=== PATIENT | female | born 1945 | race Caucasian/White ===

== ENCOUNTER → 2017-09-13 13:49 | Outpatient (CLI) | payer OTHER, SELFPAY ==
--- NOTE | 2017-09-13 | DI.MG.S_ITS ---
BILATERAL DIGITAL SCREENING MAMMOGRAM 3D/2D WITH CAD: 09/13/2017 CLINICAL: Routine screening. Comparison is made to exams dated: 09/10/2016 mammogram, 08/31/2016 mammogram, and 08/22/2015 mammogram - [facility]. There are scattered fibroglandular elements in both breasts. Current study was also evaluated with a Computer Aided Detection (CAD) system. No significant masses, calcifications, or other findings are seen in either breast. There has been no significant interval change. IMPRESSION: NEGATIVE There is no mammographic evidence of malignancy. A 1 year screening mammogram is recommended. This exam was interpreted at Station ID: [id number]. NOTE: For mammograms, a report in lay terms will be sent to the patient. Approximately 15% of breast malignancies will not be visualized mammographically. In the management of a palpable breast mass, a negative mammogram must not discourage biopsy of a clinically suspicious lesion. Electronically Signed By: Anatoliy martines/mallorie:09/13/2017 17:14:31 letter sent: Normal Exam ACR BI-RADS Category 1: Negative [id number]
== END ==
PROVIDERS: PCP Family Medicine; Visit Provider Family Medicine
DX: Z12.31 Encounter for screening mammogram for malignant neoplasm of breast (principal)
CPT/HCPCS: 77063; 77067

== ENCOUNTER → 2017-11-22 07:54 | Outpatient (CLI) | payer OTHER, SELFPAY ==
--- NOTE | 2017-11-22 07:58 | DI.US.S_ITS ---
PROCEDURE: US ABDOMEN LIMITED INDICATIONS: LEFT GROIN LYMPHEDEMA TECHNIQUE: Real-time focused scanning was performed of the abdomen, with image documentation. COMPARISON: None. FINDINGS: No left groin lymph node, mass or other abnormality seen. IMPRESSION: No left groin abnormality. Dictated by: Franky FLETCHER Interpreted: Tiago Chavarria MD on 11/22/2017 at 9:22 Approved by: Tiago Chavarria M.D. on 11/22/2017 at 21:46
== END ==
PROVIDERS: Visit Provider Nurse Practitioner Family
DX: I89.0 Lymphedema, not elsewhere classified (principal); I10 Essential (primary) hypertension
CPT/HCPCS: 76705

== ENCOUNTER 2018-03-21 21:42 | Emergency (ER) | payer OTHER, SELFPAY ==
[2018-03-21 22:01] VITALS: BP 142/82; PULSE 77; RESP 16; TEMP 36.2; O2SAT 94; BMI 34.3
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
[2018-03-21 23:00] VITALS: BP 136/74; PULSE 77; RESP 16; O2SAT 97
[2018-03-21 23:44] VITALS: BP 144/72; PULSE 82; RESP 18; TEMP 36.6; O2SAT 97
== END 2018-03-21 23:44 | disposition home or self-care (01) ==
PROVIDERS: Emergency Provider Emergency Medicine; PCP Family Medicine
DX: R07.89 Other chest pain (principal); V49.9XXA Car occupant (driver) (passenger) injured in unspecified traffic accident, initial encounter
CPT/HCPCS: 71046; 93005; 93041; 99283; 99284

== ENCOUNTER → 2018-05-06 11:35 | Outpatient (CLI) | payer OTHER, SELFPAY ==
[2018-05-06 12:47] LABS: BUN Creatinine Ratio 17.5 (6-22); Blood Urea Nitrogen 14 mg/dL (7-17); Calcium 10.2 mg/dL (8.4-10.2); Carbon Dioxide 32 mmol/L (22-32); Chloride 95 mmol/L (98-107); Estimated Glomerular Filt Rate > 60.0 mL/min (>60); Glucose 107 mg/dL (80-110); HEMOLYSIS < 15 (0-50); Potassium 4.4 mmol/L (3.4-5.1); Sodium 138 mmol/L (137-145)
[2018-05-06 14:56] LABS: Creatinine Urine Random 87.8 mg/dL
[2018-05-06 15:00] LABS: Microalbumi Creatinin Ratio Ur 19.3 ug/mg CR (<30); Microalbumin Urine Random 1.7 mg/dL (0-1.6)
== END ==
PROVIDERS: PCP Family Medicine; Visit Provider Family Medicine
DX: I10 Essential (primary) hypertension (principal)
CPT/HCPCS: 36415; 80048; 82043; 82570

== ENCOUNTER 2018-08-04 06:30 | Day surgery (SDC) | payer OTHER, SELFPAY ==
[2018-08-04 07:10] VITALS: BP 156/82; PULSE 74; RESP 20; TEMP 36.4; O2SAT 98
[2018-08-04] MEDS: PROPARACAINE 0.5% OPHTH SOL 2 DROPS EYE-OP (07:15)
[2018-08-04] MEDS: CATARACT EYE COMPOUND (10 DROPS/SYRINGE) 3 DROPS EYE-OP (07:20)
--- NOTE | 2018-08-04 07:27 | PM.PREOP ---
Pre-operative Note Interval Note History & Physical reviewed/Exam performed by Physician: Yes Changes to H&P: No
[2018-08-04] MEDS: TETRACAINE 0.5% OPHTH DROPS 4 ML 2 DROPS EYE-LEFT (07:43)
[2018-08-04] MEDS: CHONDROIDTIN/SOD HYALURONATE 1.05 ML SYRINGE INTRAOCULA (08:12)
[2018-08-04] MEDS: PHENYLEPHRINE/LIDOCAINE VIAL (OR) 0.2 ML EYE-OP (08:13)
[2018-08-04] MEDS: MOXIFLOXACIN OPHTH DROPS 3 ML BOTTLE 2 DROPS INJ (08:13)
[2018-08-04] MEDS: BALANCED SALT IRRIG SOLN NO.2 500 ML, EPINEPHrine 1 MG IRR (08:14)
[2018-08-04] MEDS: BALANCED SALT IRRIG SOLN NO.2 15 ML IRR (08:16)
[2018-08-04] MEDS: LIDOCAINE 2% INJ SDV 0.5 ML TOP (08:17)
--- NOTE | 2018-08-04 08:35 | PM.OP.1 ---
Procedure & Clinicians Procedure: Cataract extraction with intraocular lens implant, left Same procedure as scheduled: Yes Indications: Age related nuclear sclerosis , left Click Yes if Unassisted: Yes Anesthesia Type: MAC +/- Operative Notes Procedure in detail: The patient was brought to the operating suite. The correct patient, surgical site and lens were confirmed. 0.5 % tetracaine drops were placed in the left eye. The cornea was marked with a corneal reference marker. The patient was prepped and draped in the typical sterile manner. A lid speculum was placed in the eye. 2% lidocaine was placed on the eye. A paracentesis port was created with a side-port blade. 0.1 mL of 1% preservative free lidocaine with phenylephrine was injected into the anterior chamber. Viscoelastic was injected into the anterior chamber. A 2.6mm keratome was used to create a clear corneal temporal incision. Cystotome and Utrata forceps were used to create a continuous curvilinear capsulorrhexis. Balanced salt solution was used to hydrodissect the nucleus. Phacoemulsification was used to remove the lens. The capsular bag was inflated with viscoelastic. The cornea was marked at 162 degrees. A Bar ZCT 225 +23.5D lens was inserted into the capsule. Viscoelastic was removed. The lens was rotated to 162 degrees and the wound hydrated. The wound was found to be leak free and the eye was assessed to be at normal physiologic pressure. 0.1mL Vigamox was injected into the anterior chamber. The lid speculum was removed and the patient left the operating room in excellent condition. Complications: none Condition: stable Disposition: same day surgery
[2018-08-04 08:36] VITALS: BP 150/75; PULSE 71; RESP 18; TEMP 36.3; O2SAT 100
== END 2018-08-04 09:04 ==
LOC: OR 06:33
PROVIDERS: PCP Family Medicine; Visit Provider Ophthalmology
PROC: (CPT 66984; principal; 2018-08-04 07:45)
DX: H25.12 Age-related nuclear cataract, left eye (principal); I10 Essential (primary) hypertension
CPT/HCPCS: 66984; J0171; J2250; J3010; V2787

== ENCOUNTER 2018-08-10 15:40 | Emergency (ER) | payer OTHER, SELFPAY ==
[2018-08-10 15:45] VITALS: BP 150/84; PULSE 85; RESP 20; TEMP 36.1; O2SAT 96
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
[2018-08-10 17:00] VITALS: BP 136/72; PULSE 67; RESP 18; O2SAT 98
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
--- NOTE | 2018-08-10 17:59 | ED.FALL ---
HPI - Fall General Chief Complaint: Fall Stated Complaint: SYNCOPAL EPISODE, MEMORY CHANGES Time Seen by Provider: 08/10/18 17:58 Source: patient Mode of arrival: ambulatory Limitations: no limitations History of Present Illness HPI Narrative: Patient is a 73-year-old female here for evaluation of an episode where she got out of her call our earlier this evening. She was with her that time. Her thinks that she took a step and tripped over a piece of cement that was in the parking lot. There was no loss of consciousness. She is not on anticoagulation. She does report that she has some problems memory prior to the event. She did not have any prodromal symptoms to include headache or palpitations or lightheadedness or dizziness. Patient was able to ambulate afterwards. Is complaining of right arm pain and abrasions to the tops of her feet and a cut above her right eye. Related Data Home Medications Medication Instructions Recorded Confirmed ketorolac 1 drp EYE-RIGHT QID 08/10/18 08/10/18 moxifloxacin 1 drp EYE-RIGHT QID 08/10/18 08/10/18 prednisolone acetate 1 drp EYE-RIGHT QID 08/10/18 08/10/18 Previous Rx's Medication Instructions Recorded atorvastatin 20 mg tablet 20 mg PO 2 X/WEEK #40 tab 07/22/18 hydrochlorothiazide 25 mg tablet 25 mg PO DAILY #30 tab 07/22/18 Allergies Allergy/AdvReac Type Severity Reaction Status Date / Time No Known Drug Allergies Allergy Verified 08/04/18 07:11 Review of Systems Constitutional Denies fatigue, Denies frequent falls, Denies headache(s) and Denies weakness Eyes Denies change in vision ENT Ears, Nose, Mouth, and Throat: Denies vertigo, Denies dizziness, Denies headache(s), Denies epistaxis, Denies mouth pain, Denies nasal discharge, Denies disequilibrium, Denies tinnitus and Denies sinus pressure Cardiovascular Denies chest pain, Denies palpitations and Denies dyspnea Respiratory Denies cough and Denies dyspnea Gastrointestinal Gastrointestinal: Denies abdominal pain, Denies nausea and Denies vomiting Musculoskeletal Comments: Right arm pain Integumentary/Breasts Comments: Cut above the right eye abrasions that up the feet Neurologic Denies abnormal movements, Denies abnormal speech, Denies behavioral changes, Reports confusion, Denies vertigo, Denies dizziness, Denies frequent falls, Denies headache(s), Denies focal weakness, Reports memory loss, Denies restless legs, Denies paresthesias, Denies disequilibrium and Denies weakness Psychiatric Denies behavioral changes, Reports confusion and Reports memory loss Endocrine Denies fatigue and Denies palpitations Hematologic/Lymphatic Denies easy bleeding and Denies easy bruising Allergic/Immunologic Denies urticaria Exam Initial Vital Signs Initial Vital Signs: Vital Signs Temperature 97.0 F L 08/10/18 15:45 Pulse Rate 85 08/10/18 15:45 Respiratory Rate 20 08/10/18 15:45 Blood Pressure 150/84 H 08/10/18 15:45 Pulse Oximetry 96 08/10/18 15:45 Const General: cooperative, comfortable, well developed, well groomed and No acute distress Orientation: alert, awake and oriented x3 HENMT Head: other (Small cut above the right eye) Ears: hearing grossly normal bilaterally Nose: external nose normal Face and sinus: normal facial exam Mouth: oral mucosae normal Eyes EOM: EOM intact bilaterally Resp Effort & Inspection: normal respiratory effort Auscultation: clear to auscultation bilaterally Cardio Rate: regular rate Rhythm: regular rhythm Pulses: radial pulses present GI Inspection: non-distended Palpation: soft Back/Spine/Pelvis Cervical Spine: No collar present, No cervical spasm and No cervical spinal tenderness Thoracic/Lumbar Spine: No thoracic spinal tenderness and No lumbar spinal tenderness Skin Other: Patient with a superficial 2 cm cut to the lateral aspect above the right eye. Patient was superficial abrasions to the top bilateral feet Neuro General: alert, awake and oriented x3 Cranial Nerves: CN's II-XI intact bilaterally Cognition: normal cognition Speech: speech normal Motor: muscle tone normal throughout Sensory Exam: no sensory deficits noted Extrem General: normal to inspection and capillary refill normal Other: Patient with tenderness to palpation around the right elbow. Right shoulder right wrist right hand unremarkable. The rest of her musculoskeletal exam is unremarkable Psych Appearance: grossly normal and well ket [facility] Medical History Cataract (Chronic ~2011) Dextroscoliosis (Chronic) Diverticulosis (Chronic 07/12/14) Fibrocystic breast disease (Chronic 1992) Hemorrhoids (Chronic) Hyperlipidemia (Chronic) Peptic ulcer disease (Chronic 2004) Scoliosis (Chronic ~1956) Abnormal Pap smear of cervix (Resolved) Chicken pox (Resolved) 4 para 4 (Resolved) Measles (Resolved) Mumps (Resolved) Social History household members: spouse Smoking Status: Never smoker alcohol intake: current (Once in a great while ) substance use type: does not use Procedures Orthopedic Splinting/Casting Injury #1: Side: right Upper Extremity Injury Location: elbow Upper Extremity Immobilizer: sugar tong splint Post splinting neuro exam: intact and no change Post splinting vascular exam: no change Placed by: Provider Scores GCS Gautier coma scale eye opening: Spontaneous Sri coma scale verbal response: Orientated Gautier coma scale motor response: Obey commands Gautier coma scale total score: 15 Nexus Score for C-Spine Focal Neurologic deficit present: No Midline spinal tenderness present: No Altered level of conciousness present: No Intoxication present: No Distracting Injury Present: No Nexus Criteria for C-spine: 0 Course Orders Ordered: ED Orders 08/10/18 15:56 CT cervical spine wo con Stat CT head/brain wo con Stat 08/10/18 17:28 XR forearm RT 2V Stat XR wrist RT min 3V Stat 08/10/18 17:29 EKG-12 Lead Stat 08/10/18 18:19 XR elbow RT min 3V Stat Vital Signs - 8 hr 08/10/18 17:00 08/10/18 20:51 Pulse Rate 67 73 Respiratory Rate 18 16 Blood Pressure 140/69 Blood Pressure [Left Arm] 136/72 Pulse Oximetry 98 97 MDM - Fall Imaging Data CT scan - head: Radiologist's impression: [address] [address] [address] Scan Report Signed Patient: Analilia Malone JMR#: [id number] : 6Acct:[id number] Age/Sex: 72 / FDate of Service: 08/10/18 Loc: ED Accession Number: [id number] Procedure: CT head/brain wo con Ordering Provider: Lucie Barnes-BC PROCEDURE: CT HEAD/BRAIN WO CON INDICATIONS: fall, struck head, +loc, vomiting TECHNIQUE: Noncontrast 4.5 mm thick angled axial sections acquired from the foramen magnum to the vertex, with coronal and sagittal reformats. For radiation dose reduction, the following was used: automated exposure control, adjustment of mA and/or kV according to patient size. COMPARISON: [facility], MR, C-SPINE WITHOUT CONTRAST, 02/25/2010, 17:06. [facility], CT, CT CERVICAL SPINE WO CON, 08/10/2018, 16:03. FINDINGS: Image quality: Excellent. CSF spaces: Basal cisterns are patent. No extra-axial fluid collections. The ventricles are symmetric in size and shape. Brain: No intracranial bleeds or masses. There is cerebral volume loss for age, with resultant ventricular and sulcal prominence. There are periventricular and deep white matter chronic small vessel ischemic changes. There is intracranial internal carotid artery atherosclerosis. Skull and face: Calvarium and visualized facial bones appear intact, without suspicious lesions. Note is made of absence of the C1 ring from the posterior midline leftward and anteriorly towards the 2:00 position on the left. Sinuses: Visualized sinuses and mastoids are clear. IMPRESSION: No brain parenchymal trauma found, no intracranial hemorrhage seen. Absent left sided C1 ring from approximately 2:00 to 6:00 without visualized mass lesion in that area. Please correlate for whether this could represent a congenital variant or sequela of prior operative intervention. Dictated by: Ziggy Rico M.D. on 08/10/2018 at 16:18 Approved by: Ziggy Rico M.D. on 08/10/2018 at 16:22 CT cervical spine: Radiologist's impression: [place] [address] CT Scan Report Signed Patient: Analilia Malone R#: [id number] : 6Acct:[id number] Age/Sex: 72 / FDate of Service: 08/10/18 Loc: ED Accession Number: [id number] Procedure: CT cervical spine wo con Ordering Provider: Lucie Barnes PROCEDURE: CT CERVICAL SPINE WO CON INDICATIONS: fall, struck head, +loc, vomiting TECHNIQUE: Noncontrast 3 mm thick sections acquired from the skull base to the T4 level. Sagittal and coronal reformats were then constructed. For radiation dose reduction, the following was used: automated exposure control, adjustment of mA and/or kV according to patient size. COMPARISON: None. FINDINGS: Image quality: Excellent. Bones: No cervical fractures or dislocations. Visualized superior ribs are intact. Severe thoracolumbar S-shaped scoliotic curvature. Thoracic spine also imaged with no thoracic vertebral fractures noted. Relatively minor cervical spondylitic. Bilateral bony foraminal narrowing at C3-C4 and C4-C5. Soft tissues: Prevertebral soft tissues are normal in thickness. No paravertebral hematomas. No apical pneumothoraces. IMPRESSION: No evidence of acute cervical fracture or dislocation. Dictated by: Fredo Guerrero M.D. on 08/10/2018 at 16:19 Approved by: Fredo Guerrero M.D. on 08/10/2018 at 16:23 X-ray forearm: Radiologist's impression: [address] [address] XRay Report Signed Patient: FaisalAnalilia BERMEO#: [id number] : 1945cct:[id number] Age/Sex: 72 / FDate of Service: 08/10/18 Loc: ED Accession Number: [id number] Procedure: XR forearm RT 2V Ordering Provider: Lucie Nowak D.O. PROCEDURE: XR FOREARM RT 2V INDICATIONS: fall and painful TECHNIQUE: 2 views of the forearm were acquired. COMPARISON: None. FINDINGS: Bones: There is subtle contour irregularity involving the radial neck region, suboptimally evaluated on this forearm study. No other fracture or dislocation is seen. No suspicious bony lesions. Soft tissues: No suspicious soft tissue calcifications or masses. There is displacement of anterior fat pad consistent with elbow joint effusion and is suspicious for occult fracture. IMPRESSION: Finding is concerning for subtle radial head/neck fracture. If indicated, dedicated radiographs of elbow joint can be done for further evaluation. Dictated by: Luis Castillo M.D. on 08/10/2018 at 18:04 Approved by: Luis Castillo M.D. on 08/10/2018 at 18:07 X-ray wrist: Radiologist's impression: Analilia Malone J 73 F [address] [address] XRay Report Signed Patient: Analilia Malone#: [id number] : 6Acct:[id number] Age/Sex: 72 / FDate of Service: 08/10/18 Loc: ED Accession Number: [id number] Procedure: XR wrist RT min 3V Ordering Provider: Lucie Nowak D.O. PROCEDURE: XR WRIST RT MIN 3V INDICATIONS: fall and painful TECHNIQUE: 4 views of the wrist were acquired. COMPARISON: [facility], , WRIST MINIMUM 3 VIEWS RIGHT, 10/20/2010, 11:49. FINDINGS: Bones: Moderate osteoarthritic changes along radial aspect of right wrist are seen more prominent at first CMC joint. No fractures or dislocations. No suspicious bony lesions. Scaphoid view: Scaphoid is grossly intact. Soft tissues: No suspicious soft tissue calcifications. IMPRESSION: No gross acute right wrist fracture or dislocation. 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 Dictated by: Luis Castillo M.D. on 08/10/2018 at 18:07 X-ray elbow: Radiologist's impression: [place] [address] XRay Report Signed Patient: Analilia Malone JMR#: [id number] : 6Acct:[id number] Age/Sex: 72 / FDate of Service: 08/10/18 Loc: ED Accession Number: [id number] Procedure: XR elbow RT min 3V Ordering Provider: Juan Miguel Ferreira D.O. PROCEDURE: XR ELBOW RT MIN 3V INDICATIONS: possible fracture TECHNIQUE: 3 views of the elbow were acquired. COMPARISON: None. FINDINGS: Bones: There is cortical irregularity of the right proximal radial neck and distal humeral metaphysis/supracondylar region. Soft tissues: There is a moderate-sized anterior right elbow joint effusion. IMPRESSION: Moderate-sized anterior right elbow joint effusion with cortical irregularity of the proximal right radial neck and right distal humeral metaphysis, concerning for nondisplaced fractures. Recommend followup radiographs in 7-10 days for further evaluation. Dictated by: Juan Francisco Queen M.D. on 08/10/2018 at 19:14 Approved by: Juan Francisco Queen M.D. on 08/10/2018 at 19:17 ECG Data Attestation: I personally reviewed and interpreted this ECG as follows: Prior ECG tracings: not available for review Interpretation: Sinus rhythm Ventricular rate is 74 Occasional PACs Normal QRS Normal QTC No ST T wave changes MDM Narrative Medical decision making narrative: Patient had the head CT and cervical spine CT right forearm and right wrist x-rays ordered out in triage. Her cervical spine CT showed no acute pathology. At the time of my evaluation patient did not have a cervical collar on. There is no record in the nursing notes that a cervical collar was placed. She had no tenderness to her neck. Full range of motion. After further questioning the patient and her does appear to be a mechanical fall. The superficial laceration above the right eye needs no suturing here in the emergency department. The abrasions on her feet were cleaned. The right elbow x-ray was ordered because of the concern for a radial head fracture on the forearm. This does show the possibility of a radial head fracture and also a distal ulna fracture. She was placed in a sugar-tong splint for mobilization and given the phone number to contact Orthopedics for follow-up. He had GCS of 15. No neurologic deficits the time of my exam. Patient was okay with going home and asking to be discharged home. She was given care instructions with regard to the splint. She was given strict follow-up instructions. She expressed understanding and agreement plan. Discharge Plan Departure Patient Disposition: Home Clinical Impression: Abrasion of skin Fracture of proximal end of radius Qualifiers: Encounter type: initial encounter Fracture type: closed Fracture morphology: unspecified fracture morphology Laterality: right Qualified Code(s): S52.101A - Unspecified fracture of upper end of right radius, initial encounter for closed fracture Fracture of distal end of humerus Qualifiers: Encounter type: initial encounter Fracture type: closed Fracture morphology: unspecified fracture morphology Laterality: right Qualified Code(s): S42.401A - Unspecified fracture of lower end of right humerus, initial encounter for closed fracture Fall Qualifiers: Encounter type: initial encounter Qualified Code(s): W19.XXXA - Unspecified fall, initial encounter Discharge Date/Time: 08/10/18 20:35 Interventions: ED Discharge Assessment Last Done: 08/10/18 20:51 Instructions: DI for Elbow Fracture, How to Prevent Falls, How to Take Care of Your Splint Activity Restrictions/Additional Instructions: You need to keep the splint on and keep it clean and keep it dry. Tomorrow contact your primary provider for a follow-up. Also contact the [facility] group at [phone] for a follow-up. Keep the abrasions clean. Return to the emergency department for any new or worsening symptoms Prescriptions: No Action hydrochlorothiazide 25 mg tablet 25 mg PO DAILY Qty: 30 RF: 2 atorvastatin [Lipitor] 20 mg tablet 20 mg PO 2 X/WEEK Qty: 40 RF: 2 ketorolac 0.5 % drops 1 drp EYE-RIGHT QID RF: 0 prednisolone acetate 1 % drops,suspension 1 drp EYE-RIGHT QID RF: 0 moxifloxacin 0.5 % drops 1 drp EYE-RIGHT QID RF: 0 Referrals: Karolina Montague MD [Primary Care Provider] -
--- NOTE | 2018-08-10 18:19 | DI.RAD.S_ITS ---
PROCEDURE: XR ELBOW RT MIN 3V INDICATIONS: possible fracture TECHNIQUE: 3 views of the elbow were acquired. COMPARISON: None. FINDINGS: Bones: There is cortical irregularity of the right proximal radial neck and distal humeral metaphysis/supracondylar region. Soft tissues: There is a moderate-sized anterior right elbow joint effusion. IMPRESSION: Moderate-sized anterior right elbow joint effusion with cortical irregularity of the proximal right radial neck and right distal humeral metaphysis, concerning for nondisplaced fractures. Recommend followup radiographs in 7-10 days for further evaluation. Dictated by: Juan Francisco Queen M.D. on 08/10/2018 at 19:14 Approved by: Juan Francisco Queen M.D. on 08/10/2018 at 19:17
--- NOTE | 2018-08-10 20:30 | PC.NURSE ---
patient with bilateral dorsal foot abrasions dressed with bacitracin and bandaids. steri strip to right eyebrow per provider. no new orders at this time.
[2018-08-10 20:51] VITALS: BP 140/69; PULSE 73; RESP 16; O2SAT 97
== END 2018-08-10 20:35 | disposition home or self-care (01) ==
PROVIDERS: Emergency Provider Emergency Medicine; Family Provider Family Medicine; PCP Family Medicine
DX: S52.101A Unspecified fracture of upper end of right radius, initial encounter for closed fracture (principal); S42.401A Unspecified fracture of lower end of right humerus, initial encounter for closed fracture; S00.211A Abrasion of right eyelid and periocular area, initial encounter; S90.812A Abrasion, left foot, initial encounter; S90.811A Abrasion, right foot, initial encounter; W19.XXXA Unspecified fall, initial encounter
CPT/HCPCS: 29105; 29240; 70450; 72125; 73080; 73090; 73110; 93005; 99283; 99284

== ENCOUNTER → 2018-08-16 16:18 | Outpatient (CLI) | payer OTHER, SELFPAY ==
--- NOTE | 2018-08-16 16:24 | DI.RAD.S_ITS ---
PROCEDURE: XR FOOT RT MIN 3V INDICATIONS: right foot pain after fall TECHNIQUE: 3 views of the foot were acquired. COMPARISON: [facility], , FOOT 3V LEFT, 01/04/2008, 9:14. FINDINGS: Bones: There is a comminuted and displaced fracture of the mid and distal aspect of both the fourth and fifth metatarsal bones. No articular extension. Soft tissues: No tibiotalar joint effusion. Achilles tendon appears normal. IMPRESSION: Comminuted and displaced fourth ventricle metatarsal fractures. Dictated by: Sindy Voss M.D. on 08/16/2018 at 17:25 Approved by: Sindy Voss M.D. on 08/16/2018 at 17:26
== END ==
PROVIDERS: Family Provider Family Medicine; PCP Family Medicine; Visit Provider Family Medicine
DX: M79.671 Pain in right foot (principal); S92.341A Displaced fracture of fourth metatarsal bone, right foot, initial encounter for closed fracture; S92.351A Displaced fracture of fifth metatarsal bone, right foot, initial encounter for closed fracture; W19.XXXA Unspecified fall, initial encounter
CPT/HCPCS: 73630

== ENCOUNTER 2018-09-01 13:24 | Day surgery (SDC) | payer OTHER, SELFPAY ==
[2018-09-01 06:00] VITALS: BP 167/76; PULSE 74; RESP 16; TEMP 36.3; O2SAT 99
[2018-09-01 14:24] VITALS: BP 167/76; PULSE 74; RESP 16; TEMP 36.3; O2SAT 99; BMI 18.7
[2018-09-01] MEDS: CATARACT EYE COMPOUND (10 DROPS/SYRINGE) 3 DROPS EYE-OP (14:36)
[2018-09-01] MEDS: PROPARACAINE 0.5% OPHTH SOL 2 DROPS EYE-OP (14:36)
--- NOTE | 2018-09-01 15:49 | PM.PREOP ---
Pre-operative Note Interval Note History & Physical reviewed/Exam performed by Physician: Yes Changes to H&P: No
[2018-09-01] MEDS: TETRACAINE 0.5% OPHTH DROPS 4 ML 2 DROPS EYE-OP ×2 (16:00→16:15)
[2018-09-01] MEDS: BALANCED SALT IRRIG SOLN NO.2 15 ML IRR (16:19)
[2018-09-01] MEDS: CHONDROIDTIN/SOD HYALURONATE 1.05 ML SYRINGE INTRAOCULA (16:20)
[2018-09-01] MEDS: MOXIFLOXACIN OPHTH DROPS 3 ML BOTTLE 2 DROPS INJ (16:20)
[2018-09-01] MEDS: PHENYLEPHRINE/LIDOCAINE VIAL (OR) 0.2 ML EYE-OP (16:23)
[2018-09-01] MEDS: BALANCED SALT IRRIG SOLN NO.2 500 ML, EPINEPHrine 1 MG IRR (16:27)
[2018-09-01] MEDS: LIDOCAINE 2% INJ SDV 0.5 ML TOP (16:29)
--- NOTE | 2018-09-01 16:56 | PM.OP.1 ---
Procedure & Clinicians Procedure: Cataract extraction with intraocular lens implant, right Same procedure as scheduled: Yes Indications: Visually significant age related nuclear cataract, right Surgeon: Eliud Mukherjee Click Yes if Unassisted: Yes Anesthesia Type: MAC +/- Operative Notes Procedure in detail: The patient was brought to the operating suite. The correct patient, surgical site and lens were confirmed. 0.5 % tetracaine drops were placed in the right eye and the eye was marked with a corneal marker. The patient was prepped and draped in the typical sterile manner. A lid speculum was placed in the eye. 2% lidocaine was placed on the eye. A paracentesis port was created with a side-port blade. 0.1 mL of 1% preservative free lidocaine with phenylephrine was injected into the anterior chamber. Viscoelastic was injected into the anterior chamber. A 2.6mm keratome was used to create a clear corneal temporal incision. Cystotome and Utrata forceps were used to create a continuous curvilinear capsulorrhexis. Balanced salt solution was used to hydrodissect the nucleus. Phacoemulsification was used to remove the lens. The capsular bag was inflated with viscoelastic. A Bar [id number] +23.50 D lens was inserted into the capsule. Viscoelastic was removed and the wound hydrated. The wound was found to be leak free and the eye was assessed to be at normal physiologic pressure. 0.1mL Vigamox was injected into the anterior chamber. The lid speculum was removed and the patient left the operating room in excellent condition. Complications: none Condition: stable Disposition: same day surgery
--- NOTE | 2018-09-01 17:01 | P.OP_ITS ---
Procedure & Clinicians Procedure: Cataract extraction with intraocular lens implant, right Same procedure as scheduled: Yes Indications: Visually significant age related nuclear cataract, right Surgeon: Eliud Mukherjee Click Yes if Unassisted: Yes Anesthesia Type: MAC +/- Operative Notes Procedure in detail: The patient was brought to the operating suite. The correct patient, surgical site and lens were confirmed. 0.5 % tetracaine drops were placed in the right eye and the eye was marked with a corneal marker. The lalitha ent was prepped and draped in the typical sterile manner. A lid speculum was placed in the eye. 2% lidocaine was placed on the eye. A paracentesis port was created with a side-port blade. 0.1 mL of 1% preservative free lidocaine with phenylephrine was injected into the anterior chamber. Viscoelastic was injected into the anterior chamber. A 2.6mm keratome was used to create a clear corneal temporal incision. Cystotome and Utrata forceps were used to create a continuous curvilinear capsulorrhexis. Balanced salt solution was used to hydrodissect the nucleus. Phacoemulsification was used to remove the lens. The capsular bag was inflated with viscoelastic. A Bar [id number] +23.50 D lens was inserted into the capsule. Viscoelastic was removed and the wound hydrated. The wound was found to be leak free and the eye was assessed to be at normal physiologic pressure. 0.1mL Vigamox was injected into the anterior chamber. The lid speculum was removed and the patient left the operating room in excellent condition. Complications: none Condition: stable Disposition: same day surgery
[2018-09-01 17:03] VITALS: BP 167/76; PULSE 74; RESP 16; TEMP 36.3; O2SAT 99
== END 2018-09-01 17:21 ==
LOC: OR 13:26
PROVIDERS: PCP Family Medicine; Visit Provider Ophthalmology
PROC: (CPT 66984; principal; 2018-09-01 15:30)
DX: H25.11 Age-related nuclear cataract, right eye (principal); I10 Essential (primary) hypertension
CPT/HCPCS: 66984; J0171; J2250; J3010; V2787

== ENCOUNTER → 2018-11-01 09:27 | Outpatient (CLI) | payer OTHER, SELFPAY ==
--- NOTE | 2018-11-01 | DI.MG.S_ITS ---
BILATERAL DIGITAL SCREENING MAMMOGRAM 3D/2D WITH CAD: 11/01/2018 CLINICAL: Routine screening. Comparison is made to exams dated: 09/13/2017 mammogram, 09/10/2016 mammogram, 08/31/2016 mammogram, and 08/22/2015 mammogram - [facility]. There are scattered fibroglandular elements in both breasts. Current study was also evaluated with a Computer Aided Detection (CAD) system. There are benign calcifications in both breasts. No significant masses, calcifications, or other findings are seen in either breast. There has been no significant interval change. IMPRESSION: There is no mammographic evidence of malignancy. A 1 year screening mammogram is recommended. This exam was interpreted at Station ID: [id number]. NOTE: For mammograms, a report in lay terms will be sent to the patient. Approximately 15% of breast malignancies will not be visualized mammographically. In the management of a palpable breast mass, a negative mammogram must not discourage biopsy of a clinically suspicious lesion. Electronically Signed By: Rodríguez wahl/mallorie:11/01/2018 13:32:42 letter sent: Normal Exam ACR BI-RADS Category 2: Benign Finding(s) 3342F
== END ==
PROVIDERS: PCP Family Medicine; Visit Provider Family Medicine
DX: Z12.31 Encounter for screening mammogram for malignant neoplasm of breast (principal)
CPT/HCPCS: 77063; 77067

== ENCOUNTER → 2019-01-23 13:02 | Outpatient (CLI) | payer OTHER, SELFPAY | PROVIDERS: PCP Family Medicine; Visit Provider Family Medicine | DX: Z78.0 Asymptomatic menopausal state (principal); R29.890 Loss of height; S42.401A Unspecified fracture of lower end of right humerus, initial encounter for closed fracture; S92.901A Unspecified fracture of right foot, initial encounter for closed fracture | CPT/HCPCS: 77080; 77081 ==

== ENCOUNTER → 2019-12-05 16:39 | Outpatient (CLI) | payer OTHER, SELFPAY ==
--- NOTE | 2019-12-05 | DI.MG.S_ITS ---
BILATERAL DIGITAL SCREENING MAMMOGRAM 3D/2D WITH CAD: 12/05/2019 CLINICAL: Routine screening. Comparison is made to exams dated: 11/01/2018 mammogram, 09/13/2017 mammogram, 09/10/2016 mammogram, and 08/31/2016 mammogram - [facility]. There are scattered fibroglandular elements in both breasts. Current study was also evaluated with a Computer Aided Detection (CAD) system. There is a possible new 0.9 cm oval equal density focal asymmetry in the left breast at 12 o'clock middle depth. No other significant masses, calcifications, or other findings are seen in either breast. IMPRESSION: INCOMPLETE: NEEDS ADDITIONAL IMAGING EVALUATION The possible new 0.9 cm oval equal density focal asymmetry in the left breast is indeterminate. Additional views with possible ultrasound are recommended. This exam was interpreted at Station ID: [id number]. NOTE: For mammograms, a report in lay terms will be sent to the patient. Approximately 15% of breast malignancies will not be visualized mammographically. In the management of a palpable breast mass, a negative mammogram must not discourage biopsy of a clinically suspicious lesion. Electronically Signed By: Rodríguez wahl/mallorie:12/06/2019 08:17:54 letter sent: Additional Imaging Needed ACR BI-RADS Category 0: Incomplete [id number]
== END ==
PROVIDERS: PCP Family Medicine; Referring Provider Family Medicine; Visit Provider Family Medicine
DX: Z12.31 Encounter for screening mammogram for malignant neoplasm of breast (principal)
CPT/HCPCS: 77063; 77067

== ENCOUNTER → 2020-01-01 14:00 | Outpatient (CLI) | payer OTHER, SELFPAY ==
--- NOTE | 2020-01-01 14:00 | DI.MG.S_ITS ---
UNILATERAL LEFT DIGITAL DIAGNOSTIC MAMMOGRAM 3D/2D WITH ADDITIONAL VIEWS: 01/01/2020 CLINICAL: Additional evaluation requested from prior study. Comparison is made to exams dated: 12/05/2019 mammogram, 11/01/2018 mammogram, and 09/13/2017 mammogram - [facility]. There are scattered fibroglandular elements in left breast. There is a new 1 cm oval mass with an obscured and circumscribed margin in the left breast at 12 o'clock middle depth. This is seen in additional views. No other significant masses or calcifications are seen in the breast. IMPRESSION: INCOMPLETE: NEEDS ADDITIONAL IMAGING EVALUATION The new 1 cm oval mass in the left breast is indeterminate. An ultrasound is recommended. This exam was interpreted at Station ID: [id number]. NOTE: For mammograms, a report in lay terms will be sent to the patient. Approximately 15% of breast malignancies will not be visualized mammographically. In the management of a palpable breast mass, a negative mammogram must not discourage biopsy of a clinically suspicious lesion. SUMMARY: Targeted ultrasound is recommended for further evaluation and will be scheduled immediately following this exam. Electronically Signed By: John bishop/mallorie:01/01/2020 16:01:35 ACR BI-RADS Category 0: Incomplete [id number]
--- NOTE | 2020-01-01 14:00 | DI.US.S_ITS ---
LIMITED ULTRASOUND OF LEFT BREAST: 01/01/2020 CLINICAL: Patient returns today to evaluate a focal asymmetry in the left breast. Comparison is made to exams dated: 01/01/2020 mammogram, 12/05/2019 mammogram, 11/01/2018 mammogram, and 09/13/2017 mammogram - [facility]. Color flow ultrasound of the left breast 12 o'clock region was performed. Gonzalez scale images of the real-time examination were reviewed. There is a benign 1 cm x 0.7 cm x 0.5 cm oval simple cyst with a smooth internal wall in the left breast at 12 o'clock middle depth 6 cm from the nipple. This oval simple cyst is anechoic with posterior acoustic enhancement. This correlates with mammography findings. IMPRESSION: BENIGN There is no sonographic evidence of malignancy. The 1 cm x 0.7 cm x 0.5 cm oval simple cyst in the left breast is benign. A 1 year screening mammogram is recommended. This exam was interpreted at Station ID: [id number]. Electronically Signed By: John bishop/mallorie:01/01/2020 16:07:24 letter sent: Normal Exam Ultrasound BI-RADS: 2 Benign
== END ==
PROVIDERS: PCP Family Medicine; Referring Provider Family Medicine; Visit Provider Family Medicine
DX: R92.8 Other abnormal and inconclusive findings on diagnostic imaging of breast (principal); N60.02 Solitary cyst of left breast
CPT/HCPCS: 76642; 77065; G0279

== ENCOUNTER 2020-06-18 10:36 | Emergency (ER) | payer OTHER, SELFPAY ==
[2020-06-18] VITALS (12 sets, daily range): BP systolic 143–179; BP diastolic 74–86; PULSE 55–82; RESP 21; TEMP 36.4; O2SAT 94–99
[2020-06-18] MEDS: ONDANSETRON 4 MG/2 ML INJ IV (10:52)
[2020-06-18] MEDS: SODIUM CHLORIDE 0.9% 1,000 ML 1000 ML IV (10:52)
--- NOTE | 2020-06-18 10:52 | ED_ITS ---
HPI - Nausea/Vomiting/Diarrhea General Chief complaint: Nausea/Vomiting/Diarrhea Stated complaint: fever, chills, vomitting Time Seen by Provider: 06/18/20 10:50 Source: patient and family () Mode of arrival: Wheelchair Limitations: no limitations History of Present Illness HPI Narrative: This is a 74-year-old female who comes to the emergency department with sensation of chills, diaphoresis and nausea and vomiting patient and her states she is feeling fine last night. She woke up at 8:30 a.m. this morning feeling unwell with generalized weakness. states she seemed to have been sleeping before and was sort of moaning in her sleep seeming uncomfortable. Patient was very sweaty, she felt warm and nauseated. They got in the car to drive to the urgent care to be evaluated and she began having emesis and had 4 5 episodes of dry heaves. Patient states she had generalized weakness no lateralizing weakness noted. She has chronic issues with her speech and memory issues secondary to likely dementia. Patient has felt fatigued and cold as well as chilled. She denies any chest pain or pressure, no shortness of breath. She denies any headache, no abdominal, back flank pain. She has not appreciated any frequency dysuria sense of urgency or incontinence. No diarrhea, no constipation. She has not had any cold, cough or congestive type symptoms. She felt lightheaded but was able to ambulate. Patient did not have any vertigo type symptoms. She did have her COVID vaccination with the 2nd 1 most recently on June 04. She takes atorvastatin hydrochlorothiazide prescribed by her primary care Dr. Montague. Patient denies any prior surgeries. No allergies to medications. No tobacco, alcohol or illicit. She lives independently with her . Related Data Previous Rx's Medication Instructions Recorded hydrochlorothiazide 25 mg tablet See Rx Instructions .ROUTE 12/05/19 .COMPLEX #30 tab atorvastatin 20 mg tablet See Rx Instructions PO 2 X/WEEK 12/07/19 #40 tab ondansetron HCl [Zofran] 4 mg PO Q6H PRN #7 tab 06/18/20 prednisone 40 mg PO DAILY #10 tab 06/18/20 Allergies Allergy/AdvReac Type Severity Reaction Status Date / Time No Known Drug Allergies Allergy Verified 06/18/20 10:45 Review of Systems Review of Systems ROS Unobtainable: All systems reviewed & are unremarkable except as noted in HPI and below Patient History Medical History (Updated 06/18/20 @ 14:22 by Lucie Nowak DO) Abnormal Pap smear of cervix Cataract (~2011) Chicken pox Dextroscoliosis Diverticulosis (07/12/14) Fibrocystic breast disease (1992) 4 para 4 Hemorrhoids Hyperlipidemia Measles Mumps Peptic ulcer disease (2004) Scoliosis (~195) Surgical History History of breast biopsy (1992) History of colonoscopy (07/12/14) History of laparoscopy (04/2009) History of left inguinal hernia repair (1991) Family History Brother Age: 69 Cancer Sister Age: 78 Hypertension High cholesterol Brother No problems noted. Brother No problems noted. Brother ALS (amyotrophic lateral sclerosis) Father CAD (coronary artery disease) S/P CABG (coronary artery bypass graft) Arthritis Grandmother No problems noted. Mother Arthritis Hyperlipidemia Hypertension Grandfather No problems noted. Grandmother No problems noted. Sister No problems noted. Other Diabetes mellitus Social History marital status: number of children: 2 household members: spouse lives independently: Yes caregiver/support person: No housing: house Smoking Status: Never smoker second hand exposure: No alcohol intake: current (Once in a great while ) substance use type: does not use Smoking Status: Never smoker alcohol intake frequency: holidays/special occasions only Substance Use Type: does not use Exam Narrative Exam Narrative: GEN: well nourished, elderly female, alert and oriented, patient appears to be in mild distress. Patient gives majority of history but does have some difficulty with past medical history. Patient's states this is her typical mental state. HEENT: Atraumatic, pupils are equal round reactive to light, extraocular movements are intact, nares are clear, TMs are clear with no fluid, there is no conjunctival pallor. HEART: Regular rate and rhythm without murmur, clicks, rubs. LUNGS:Lungs clear to auscultation, no wheezes, rales, crackles, chest moves symmetrically ABD:bowel sounds normal, soft, non-tender, no guarding, rebound, rigidity, no masses noted, no hepatosplenomegaly, nondistended. :No CVA tenderness BACK: No cervical, thoracic or lumbar vertebral point tenderness. Patient has significant scoliosis with kyphosis and thoracic curve noted. Patient has normal range of motion. Patient able to sit up with a little assistance. No or skin changes noted. NEURO:CN 2-12 intact, sensation normal. SKIN: No rash. Erythema or skin changes. Initial Vital Signs Initial Vital Signs: Vital Signs Temperature 97.6 F 06/18/20 10:40 Pulse Rate 70 06/18/20 10:40 Respiratory Rate 21 06/18/20 10:40 Blood Pressure 173/79 H 06/18/20 10:40 Pulse Oximetry 96 06/18/20 10:40 Course Orders Ordered: ED Orders 06/18/20 10:44 EKG-12 Lead Routine 06/18/20 10:45 Complete Blood Count AUTO DIFF Stat Comprehensive Metabolic Panel Stat Lactate (Lactic Acid) Stat Lipase Stat Procalcitonin Stat Troponin & CK Cardiac Panel Stat 06/18/20 10:46 COVID19 - ADMIT ([employer] swab/PCR) Stat 06/18/20 11:16 XR abdomen 1V Stat XR chest 1V Stat 06/18/20 11:23 Blood Culture Stat 06/18/20 12:21 CT abdomen pelvis w con Stat 06/18/20 12:53 Troponin I Stat 06/18/20 13:17 EKG-12 Lead Stat Discontinued Medications Diphenhydramine HCl (Diphenhydramine 50 Mg/Ml Vial) 25 mg IV NOW ONE Stop: 06/18/20 11:24 Last Admin: 06/18/20 11:47 Dose: 25 mg Documented by: MARIA LUISA Sodium Chloride (Normal Saline 0.9%) 1,000 mls @ 1,000 mls/hr IV BOLUS ONE Stop: 06/18/20 11:45 Last Infusion: 06/18/20 11:54 Dose: 0 mls/hr Documented by: MARIA LUISA Admin: 06/18/20 10:52 Dose: 1,000 mls/hr Documented by: ROZM Sodium Chloride (Normal Saline 0.9%) 1,000 mls @ 1,000 mls/hr IV BOLUS ONE Stop: 06/18/20 12:16 Last Admin: 06/18/20 11:26 Dose: Not Given Documented by: CARIN Ondansetron HCl (Ondansetron 4 Mg/2 Ml Inj) 4 mg IV NOW ONE Stop: 06/18/20 10:47 Last Admin: 06/18/20 10:52 Dose: 4 mg Documented by: YENNIFER Vital Signs Vital signs: Vital Signs - 8 hr 06/18/20 11:49 06/18/20 11:50 06/18/20 12:00 Pulse Rate 60 65 Blood Pressure 158/86 H 158/77 H Pulse Oximetry 96 97 95 06/18/20 12:36 06/18/20 12:38 06/18/20 13:00 Pulse Rate 70 82 65 Blood Pressure 179/82 H 167/77 H Pulse Oximetry 99 99 99 06/18/20 13:30 06/18/20 14:00 Pulse Rate 66 58 L Blood Pressure 165/74 H 168/80 H Pulse Oximetry 94 97 MDM - Nausea/Vomiting/Diarrhea Lab Data Attestation: I reviewed the patient's lab results. Result diagrams: 06/18/20 10:45 06/18/20 10:45 Labs: Lab Results 06/18/20 06/18/20 06/18/20 Range/Units 10:45 10:45 10:45 WBC 6.3 (4.5-11.0) X10^3/uL RBC 4.87 (4.0-5.2) X10^6/uL Hgb 15.1 (12.0-16.0) g/dL Hct 44.1 (36-46) % MCV 90.6 (80-100) fL MCH 31.0 (26-34) PG MCHC 34.2 (30-36) % RDW 12.9 (11.6-14.8) % Plt Count 224 (150-400) X10^3/uL Neut % (Auto) 73.2 (50-75) % Lymph % (Auto) 20.9 L (25-40) % [place] % (Auto) 4.3 (3-14) % Eos % (Auto) 1.0 L (2-4) % Baso % (Auto) 0.6 (0-2) % Neut # (Auto) 4600 (8989-3845) /uL Lymph # (Auto) 1300 (9977-7278) /uL [place] # (Auto) 300 (0-900) /uL Eos # (Auto) 100 (0-450) /uL Baso # (Auto) 0 (0-100) /uL Sodium 137 (137-145) mmol/L Potassium 3.9 (3.4-5.1) mmol/L Chloride 100 (98-107) mmol/L Carbon Dioxide 28 (22-32) mmol/L BUN 12 (7-17) mg/dL Creatinine 0.65 (0.52-1.04) mg/dL Estimated GFR > 60.0 (>60) mL/min BUN/Creatinine Ratio 18.5 (6-22) Glucose 152 H (80-110) mg/dL Lactate (0.7-2.1) mmol/L Calcium 9.6 (8.4-10.2) mg/dL Total Bilirubin 0.6 (0.2-1.3) mg/dL AST 31 (14-36) IU/L ALT 25 (<35) IU/L Alkaline Phosphatase 116 (38-126) U/L Total Creatine Kinase 96 (30-135) U/L CK-MB (CK-2) TNP CK-MB (CK-2) Rel Index TNP Troponin I < 0.012 (0.01-0.034) ng/mL Total Protein 7.9 (6.3-8.2) g/dL Albumin 4.5 (3.5-5.0) g/dL Globulin 3.4 (1.7-4.1) g/dL Albumin/Globulin Ratio 1.3 (1.0-2.8) Lipase 55 (23-300) U/L Procalcitonin (<0.5) ng/mL SARS-CoV-2 (PCR) (Negative) 06/18/20 06/18/20 06/18/20 Range/Units 10:45 10:45 10:46 WBC (4.5-11.0) X10^3/uL RBC (4.0-5.2) X10^6/uL Hgb (12.0-16.0) g/dL Hct (36-46) % MCV (80-100) fL MCH (26-34) PG MCHC (30-36) % RDW (11.6-14.8) % Plt Count (150-400) X10^3/uL Neut % (Auto) (50-75) % Lymph % (Auto) (25-40) % [place] % (Auto) (3-14) % Eos % (Auto) (2-4) % Baso % (Auto) (0-2) % Neut # (Auto) (2601-1488) /uL Lymph # (Auto) (8527-9586) /uL [place] # (Auto) (0-900) /uL Eos # (Auto) (0-450) /uL Baso # (Auto) (0-100) /uL Sodium (137-145) mmol/L Potassium (3.4-5.1) mmol/L Chloride (98-107) mmol/L Carbon Dioxide (22-32) mmol/L BUN (7-17) mg/dL Creatinine (0.52-1.04) mg/dL Estimated GFR (>60) mL/min BUN/Creatinine Ratio (6-22) Glucose (80-110) mg/dL Lactate 2.0 (0.7-2.1) mmol/L Calcium (8.4-10.2) mg/dL Total Bilirubin (0.2-1.3) mg/dL AST (14-36) IU/L ALT (<35) IU/L Alkaline Phosphatase (38-126) U/L Total Creatine Kinase (30-135) U/L CK-MB (CK-2) CK-MB (CK-2) Rel Index Troponin I (0.01-0.034) ng/mL Total Protein (6.3-8.2) g/dL Albumin (3.5-5.0) g/dL Globulin (1.7-4.1) g/dL Albumin/Globulin Ratio (1.0-2.8) Lipase (23-300) U/L Procalcitonin < 0.03 (<0.5) ng/mL SARS-CoV-2 (PCR) Negative (Negative) 06/18/20 06/18/20 Range/Units 12:53 13:38 WBC (4.5-11.0) X10^3/uL RBC (4.0-5.2) X10^6/uL Hgb (12.0-16.0) g/dL Hct (36-46) % MCV (80-100) fL MCH (26-34) PG MCHC (30-36) % RDW (11.6-14.8) % Plt Count (150-400) X10^3/uL Neut % (Auto) (50-75) % Lymph % (Auto) (25-40) % [place] % (Auto) (3-14) % Eos % (Auto) (2-4) % Baso % (Auto) (0-2) % Neut # (Auto) (8633-1381) /uL Lymph # (Auto) (9156-6210) /uL [place] # (Auto) (0-900) /uL Eos # (Auto) (0-450) /uL Baso # (Auto) (0-100) /uL Sodium (137-145) mmol/L Potassium (3.4-5.1) mmol/L Chloride (98-107) mmol/L Carbon Dioxide (22-32) mmol/L BUN (7-17) mg/dL Creatinine (0.52-1.04) mg/dL Estimated GFR (>60) mL/min BUN/Creatinine Ratio (6-22) Glucose (80-110) mg/dL Lactate 1.1 (0.7-2.1) mmol/L Calcium (8.4-10.2) mg/dL Total Bilirubin (0.2-1.3) mg/dL AST (14-36) IU/L ALT (<35) IU/L Alkaline Phosphatase (38-126) U/L Total Creatine Kinase (30-135) U/L CK-MB (CK-2) CK-MB (CK-2) Rel Index Troponin I < 0.012 (0.01-0.034) ng/mL Total Protein (6.3-8.2) g/dL Albumin (3.5-5.0) g/dL Globulin (1.7-4.1) g/dL Albumin/Globulin Ratio (1.0-2.8) Lipase (23-300) U/L Procalcitonin (<0.5) ng/mL SARS-CoV-2 (PCR) (Negative) Point of Care Testing Glucose POC 152 Urine Dip Bedside Urine Glucose Negative Bedside Urine Bilirubin - Negative Bedside Urine Ketone - Negative Urine Specific [place] 1.015 Bedside Urine Occult Blood - Negative Bedside Urine pH 8.0 Bedside Urine Protein - Negative Bedside Urine Urobilinogen - Negative Bedside Urine Nitrite - Negative Imaging Data Chest x-ray: Radiologist's Impression: Analilia Malone 74 F [address] [id number] ReportSigned Patient: Analilia Malone JMR#: [id number]: 6Acct:[id number]/Sex: 74 / FDate of Service: 06/18/20Loc: EDAccession Number: [id number] Procedure: XR chest 1V Ordering Provider: Lucie Nowak D.O. PROCEDURE: XR CHEST 1V INDICATIONS: fever, chills, vomiting TECHNIQUE: One view of the chest was acquired. COMPARISON: [facility], , XR CHEST 2V, 03/21/2018, 22:31. FINDINGS: Surgical changes and devices: None. Lungs and pleura: Lungs are clear. Patchy bilateral scarring. No pleural effusions or pneumothorax. Mediastinum: Mediastinal contours appear normal. Heart size is normal. Bones and chest wall: No suspicious bony lesions. Impressive S shaped thoracolumbar scoliotic curvature. Impressive S shaped thoracolumbar scoliotic curvature. Overlying soft tissues appear unremarkable. IMPRESSION: No gross pulmonary infiltrates. Dictated by: Fredo Guerrero M.D. on 06/18/2020 at 11:49 Approved by: Fredo Guerrero M.D. on 06/18/2020 at 11:50 Abdominal x-ray: Radiologist's Impression: Analilia Malone 74 F [address] [id number] ReportSigned Patient: Analilia Malone R#: [id number]: 6Acct:[id number]/Sex: 74 / FDate of Service: 06/18/20Loc: EDAccession Number: [id number] Procedure: XR abdomen 1V Ordering Provider: Lucie Nowak D.O. PROCEDURE: XR ABDOMEN 1V INDICATIONS: fever, chills, vomiting TECHNIQUE: One view of the abdomen acquired. COMPARISON: None. FINDINGS: Surgical changes and devices: None. Bowel: Bowel gas pattern is normal. Soft tissues: No suspicious abdominal calcifications. Visualized solid organ contours appear normal in size. Bones: No suspicious bony lesions. Moderately severe scoliotic curvature with convexity to the left centered at L3. IMPRESSION: Normal bowel gas pattern. No evidence of bowel obstruction. Dictated by: Fredo Guerrero M.D. on 06/18/2020 at 11:48 Approved by: Fredo Guerrero M.D. on 06/18/2020 at 11:49 CT scan - abdomen/pelvis: Radiologist's Impression: [address] [id number] Scan ReportSigned Patient: Analilia Malone JMR#: [id number]: 6Acct:[id number]/Sex: 74 / FDate of Service: 06/18/20Loc: EDAccession Number: [id number] Procedure: CT abdomen pelvis w con Ordering Provider: Lucie Nowak D.O. PROCEDURE: CT ABDOMEN PELVIS W CON INDICATIONS: n/v, chills TECHNIQUE: After the administration of intravenous contrast, 5 mm thick sections acquired from the diaphragm to the symphysis. 5 mm coronal and sagittal reformats were acquired. For radiation dose reduction, the following was used: automated exposure control, adjustment of mA and/or kV according to patient size. COMPARISON: [facility], CT, ABDOMEN/PELVIS WITH CONTRAST, 05/02/2014, 0:07. FINDINGS: Image quality: Excellent. ABDOMEN: Lung bases: Lung bases are clear. Heart size is normal. Solid organs: Liver is normal in size and enhancement. Gallbladder is unremarkable. Biliary system is non dilated. Pancreas enhances normally. Spleen is normal in size and enhancement. No adrenal nodules. Kidneys demonstrate normal size and enhancement, without hydronephrosis. Peritoneum and bowel: Prominent duodenal diverticulum with debris. Bowel loops demonstrate normal wall thickness and caliber. No free fluid or air. Sigmoid diverticulosis without evidence of diverticulitis. Colon is decompressed. This may be the cause of mild prominence of the wall of the ascending colon and transverse colon. Nodes and vessels: No retroperitoneal or mesenteric adenopathy by size criteria. Aorta and inferior vena cava are normal in size. Miscellaneous: No ventral hernias. PELVIS: Genitourinary: Bladder wall thickness is normal. Miscellaneous: No inguinal hernias or adenopathy. Retroflexed uterus. Bones: No suspicious bony lesions. No vertebral body compression fractures. Impressive thoracolumbar scoliotic curvature. IMPRESSION: 1. S shaped scoliotic curvature. 2. Note is made of a prominent duodenal diverticulum, typically an incidental finding. 3. Sigmoid diverticulosis. 4. The colon is decompressed. This may be the cause of the mild prominence of the wall of the ascending colon and transverse colon. However, cannot exclude mild colitis. Dictated by: Fredo Guerrero M.D. on 06/18/2020 at 12:44 Approved by: Fredo Guerrero M.D. on 06/18/2020 at 12:53 ECG Data Attestation: I personally reviewed and interpreted this ECG as follows: Prior ECG tracings: available for review Interpretation: Sinus rhythm with premature atrial complexes, nonspecific ST changes. Rate of 64 P are interval 192 QRS 88 QTC of 418. No acute ST elevation appreciated. Patient does have some possible depression for but not clearly consistent through lateral leads and patient has similar appearing changes from 08/10/2018 and 03/21/2018 on her prior EKGs. EKG2. Sinus rhythm premature supraventricular complex. No acute ST changes or ischemic changes appreciated. A rate of 60, P are 190 QRS of 100 and QTC of 410. Patient appears have a little bit of motion artifact in V3 V6. Patient's EKG does appear similar to prior from today. MDM Narrative Medical decision making narrative: This is a 74-year-old female with chills, subjective fever, nausea and dry heaves. Patient does not have any abdominal pain but was feeling particularly under the weather. No clear cardiac symptoms. There was concern for atypical, EKGs negative x2 with negative troponin. She does appear to have a diverticulum in her duodenum which is unlikely cause of her symptoms but also possibly some possible changes consistent with colitis on her imaging. Her labs do not reflect a infectious source and suspect this may be inflammatory in nature. With her GI symptoms I suspect this is likely the cause and reviewed patient's labs and imaging with her family as well as the patient herself. Plan for short course of Zofran, prednisone advanced diet as tolerated. We discussed symptoms to watch for at home, return precautions and all questions were answered. She is feeling better at this time. Discussed to slowly advance diet. Clear liquids only today. Zofran as needed and prednisone daily until gone. Discharge Plan Departure Patient Disposition: Home Clinical Impression: Nausea & vomiting, Colitis Instructions: DI for Colitis Activity Restrictions/Additional Instructions: Follow-up with your physician in the next several days for recheck. Call for an appointment. Your CT today shows a duodenal diverticulum which is likely incidental finding. Please discuss this with your physician. Your CT also shows possible mild colitis which is likely the cause of her symptoms today. You may continue home medications as prescribed. Take Zofran 1 tablet every 6 hours as needed for nausea. Take prednisone once daily until gone. Prescription sent to [facility]. Please return for fevers greater 100.4 F, persistent vomiting, new or worsening abdominal pain, lightheadedness or passing out, black or bloody stools new chest pain, shortness of breath, back or flank pain or other new or concerning symptoms. Prescriptions: New ondansetron HCl [Zofran] 4 mg tablet 4 mg PO Q6H PRN (Reason: nausea and vomiting) Qty: 7 RF: 0 prednisone 20 mg tablet 40 mg PO DAILY Qty: 10 RF: 0 No Action hydrochlorothiazide 25 mg tablet See Rx Instructions .ROUTE .COMPLEX Qty: 30 RF: 0 atorvastatin [Lipitor] 20 mg tablet See Rx Instructions PO 2 X/WEEK Qty: 40 RF: 0 Referrals: Karolina Montague MD [Primary Care Provider] -
[2020-06-18 11:03] LABS: Add Manual Diff / Slide Review NO; Basophils Absolute Auto 0 /uL (0-100); Basophils Percent Auto 0.6 % (0-2); Eosinophils Absolute Auto 100 /uL (0-450); Hematocrit 44.1 % (36-46); Hemoglobin 15.1 g/dL (12.0-16.0); Lymphocytes Absolute Auto 1300 /uL (1100-4500); Lymphocytes Percent Auto 20.9 % (25-40); Mean Corpuscular HGB Conc 34.2 % (30-36); Mean Corpuscular Volume 90.6 fL (80-100); Monocytes Absolute Auto 300 /uL (0-900); Monocytes Percent Auto 4.3 % (3-14); Neutrophils Absolute Auto 4600 /uL (1500-7000); Neutrophils Percent Auto 73.2 % (50-75); Platelet Count 224 X10^3/uL (150-400); Red Blood Cell Count 4.87 X10^6/uL (4.0-5.2); Red Cell Distribution Width 12.9 % (11.6-14.8); White Blood Cell Count 6.3 X10^3/uL (4.5-11.0)
[2020-06-18 11:08] LABS: Alanine Aminotransferase 25 IU/L (<35); Albumin 4.5 g/dL (3.5-5.0); Albumin Globulin Ratio 1.3 (1.0-2.8); Alkaline Phosphatase 116 U/L (38-126); Aspartate Aminotransferase 31 IU/L (14-36); BUN Creatinine Ratio 18.5 (6-22); Bilirubin Total 0.6 mg/dL (0.2-1.3); Blood Urea Nitrogen 12 mg/dL (7-17); Calcium 9.6 mg/dL (8.4-10.2); Carbon Dioxide 28 mmol/L (22-32); Chloride 100 mmol/L (98-107); Estimated Glomerular Filt Rate > 60.0 mL/min (>60); Globulin 3.4 g/dL (1.7-4.1); Glucose 152 mg/dL (80-110); HEMOLYSIS 17 (0-50); Potassium 3.9 mmol/L (3.4-5.1); Sodium 137 mmol/L (137-145); Total Protein 7.9 g/dL (6.3-8.2)
--- NOTE | 2020-06-18 11:16 | DI.RAD.S_ITS ---
PROCEDURE: XR CHEST 1V INDICATIONS: fever, chills, vomiting TECHNIQUE: One view of the chest was acquired. COMPARISON: [facility], CR, XR CHEST 2V, 03/21/2018, 22:31. FINDINGS: Surgical changes and devices: None. Lungs and pleura: Lungs are clear. Patchy bilateral scarring. No pleural effusions or pneumothorax. Mediastinum: Mediastinal contours appear normal. Heart size is normal. Bones and chest wall: No suspicious bony lesions. Impressive S shaped thoracolumbar scoliotic curvature. Impressive S shaped thoracolumbar scoliotic curvature. Overlying soft tissues appear unremarkable. IMPRESSION: No gross pulmonary infiltrates. Dictated by: Fredo Guerrero M.D. on 06/18/2020 at 11:49 Approved by: Fredo Guerrero M.D. on 06/18/2020 at 11:50
--- NOTE | 2020-06-18 11:16 | DI.RAD.S_ITS ---
PROCEDURE: XR ABDOMEN 1V INDICATIONS: fever, chills, vomiting TECHNIQUE: One view of the abdomen acquired. COMPARISON: None. FINDINGS: Surgical changes and devices: None. Bowel: Bowel gas pattern is normal. Soft tissues: No suspicious abdominal calcifications. Visualized solid organ contours appear normal in size. Bones: No suspicious bony lesions. Moderately severe scoliotic curvature with convexity to the left centered at L3. IMPRESSION: Normal bowel gas pattern. No evidence of bowel obstruction. Dictated by: Fredo Guerrero M.D. on 06/18/2020 at 11:48 Approved by: Fredo Guerrero M.D. on 06/18/2020 at 11:49
[2020-06-18 11:41] LABS: COVID19 - ADMIT (NP swab/PCR) Negative (Negative)
[2020-06-18 11:42] LABS: Creatine Kinase 96 U/L (30-135); Lipase 55 U/L (23-300)
[2020-06-18 11:47] LABS: Troponin I < 0.012 ng/mL (0.01-0.034)
[2020-06-18] MEDS: diphenhydrAMINE 50 MG/ML VIAL 25 MG IV (11:47)
[2020-06-18 12:03] LABS: Procalcitonin < 0.03 ng/mL (<0.5)
--- NOTE | 2020-06-18 12:21 | DI.CT.S_ITS ---
PROCEDURE: CT ABDOMEN PELVIS W CON INDICATIONS: n/v, chills TECHNIQUE: After the administration of intravenous contrast, 5 mm thick sections acquired from the diaphragm to the symphysis. 5 mm coronal and sagittal reformats were acquired. For radiation dose reduction, the following was used: automated exposure control, adjustment of mA and/or kV according to patient size. COMPARISON: [facility], CT, ABDOMEN/PELVIS WITH CONTRAST, 05/02/2014, 0:07. FINDINGS: Image quality: Excellent. ABDOMEN: Lung bases: Lung bases are clear. Heart size is normal. Solid organs: Liver is normal in size and enhancement. Gallbladder is unremarkable. Biliary system is non dilated. Pancreas enhances normally. Spleen is normal in size and enhancement. No adrenal nodules. Kidneys demonstrate normal size and enhancement, without hydronephrosis. Peritoneum and bowel: Prominent duodenal diverticulum with debris. Bowel loops demonstrate normal wall thickness and caliber. No free fluid or air. Sigmoid diverticulosis without evidence of diverticulitis. Colon is decompressed. This may be the cause of mild prominence of the wall of the ascending colon and transverse colon. Nodes and vessels: No retroperitoneal or mesenteric adenopathy by size criteria. Aorta and inferior vena cava are normal in size. Miscellaneous: No ventral hernias. PELVIS: Genitourinary: Bladder wall thickness is normal. Miscellaneous: No inguinal hernias or adenopathy. Retroflexed uterus. Bones: No suspicious bony lesions. No vertebral body compression fractures. Impressive thoracolumbar scoliotic curvature. IMPRESSION: 1. S shaped scoliotic curvature. 2. Note is made of a prominent duodenal diverticulum, typically an incidental finding. 3. Sigmoid diverticulosis. 4. The colon is decompressed. This may be the cause of the mild prominence of the wall of the ascending colon and transverse colon. However, cannot exclude mild colitis. Dictated by: Fredo Guerrero M.D. on 06/18/2020 at 12:44 Approved by: Fredo Guerrero M.D. on 06/18/2020 at 12:53
[2020-06-18 13:25] LABS: Reflexed Lactate in 2 Hours Y
[2020-06-18 13:41] LABS: Troponin I < 0.012 ng/mL (0.01-0.034)
[2020-06-18 13:59] LABS: Lactate 2HR (Lactic Acid Rflx) 1.1 mmol/L (0.7-2.1)
== END 2020-06-18 14:40 | disposition home or self-care (01) ==
PROVIDERS: Emergency Provider Emergency Medicine; PCP Family Medicine
DX: K52.9 Noninfective gastroenteritis and colitis, unspecified (principal); R11.2 Nausea with vomiting, unspecified
CPT/HCPCS: 36415; 71045; 74018; 74177; 80053; 81003; 82550; 82962; 83605; 83690; 84145; 84484; 85025; 87040; 87635; 93005; 96361; 96374; 96375; 99284; C9803; J1200; J2405; Q9967

== ENCOUNTER → 2020-12-13 10:17 | Outpatient (CLI) | payer OTHER, SELFPAY ==
--- NOTE | 2020-12-13 | DI.MG.S_ITS ---
BILATERAL DIGITAL SCREENING MAMMOGRAM 3D/2D WITH CAD: 12/13/2020 CLINICAL: Routine screening. Comparison is made to exams dated: 01/01/2020 mammogram, 12/05/2019 mammogram, and 11/01/2018 mammogram - [facility]. There are scattered fibroglandular elements in both breasts. Current study was also evaluated with a Computer Aided Detection (CAD) system. There are benign cysts in the left breast. No significant masses, calcifications, or other findings are seen in either breast. There has been no significant interval change. IMPRESSION: BENIGN There is no mammographic evidence of malignancy. A 1 year screening mammogram is recommended. This exam was interpreted at Station ID: [id number]. NOTE: For mammograms, a report in lay terms will be sent to the patient. Approximately 15% of breast malignancies will not be visualized mammographically. In the management of a palpable breast mass, a negative mammogram must not discourage biopsy of a clinically suspicious lesion. Electronically Signed By: Rodríguez wahl/mallorie:12/16/2020 07:35:05 letter sent: Normal Exam ACR BI-RADS Category 2: Benign Finding(s) 3342F
== END ==
PROVIDERS: PCP Family Medicine; Referring Provider Family Medicine; Visit Provider Family Medicine
DX: Z12.31 Encounter for screening mammogram for malignant neoplasm of breast (principal)
CPT/HCPCS: 77063; 77067

== ENCOUNTER → 2020-12-26 08:31 | Outpatient (CLI) | payer OTHER, SELFPAY ==
[2020-12-26 10:04] LABS: Alanine Aminotransferase 15 IU/L (<35); Albumin 4.3 g/dL (3.5-5.0); Albumin Globulin Ratio 1.4 (1.0-2.8); Alkaline Phosphatase 102 U/L (38-126); Aspartate Aminotransferase 23 IU/L (14-36); BUN Creatinine Ratio 17.5 (6-22); Bilirubin Total 0.6 mg/dL (0.2-1.3); Blood Urea Nitrogen 11 mg/dL (7-17); Calcium 9.5 mg/dL (8.4-10.2); Carbon Dioxide 33 mmol/L (22-32); Chloride 99 mmol/L (98-107); Cholesterol 255 mg/dL (140-199); Estimated Glomerular Filt Rate > 60.0 mL/min (>60); Glucose 102 mg/dL (80-110); HDL Cholesterol 71 mg/dL (40-60); HEMOLYSIS < 15 (0-50); LDL Cholesterol Calculated 164 mg/dL (<100); Potassium 4.3 mmol/L (3.4-5.1); Sodium 139 mmol/L (137-145); Total Protein 7.3 g/dL (6.3-8.2); Triglycerides 99 mg/dL (35-150)
[2020-12-26 10:35] LABS: TSH w/ Reflex to FT4 2.63 uIU/mL (0.47-4.68)
[2020-12-26 10:50] LABS: Vitamin B12 278 pg/mL (239-931)
[2020-12-27 16:57] LABS: Microalbumin Urine Random 2.4 mg/dL (0-1.6)
[2020-12-27 17:07] LABS: Creatinine Urine Random 119.6 mg/dL
== END ==
PROVIDERS: PCP Family Medicine; Referring Provider Family Medicine; Visit Provider Family Medicine
DX: I10 Essential (primary) hypertension (principal); F03.90 Unspecified dementia, unspecified severity, without behavioral disturbance, psychotic disturbance, mood disturbance, and anxiety
CPT/HCPCS: 36415; 80053; 80061; 82043; 82570; 82607; 84443

== ENCOUNTER → 2020-12-31 12:10 | Outpatient (CLI) | payer OTHER, SELFPAY ==
--- NOTE | 2020-12-31 12:11 | DI.MRI.S_ITS ---
PROCEDURE: MR HEAD/BRAIN WO/W CON INDICATIONS: dementia TECHNIQUE: Noncontrast axial T1 spin echo, axial T2 fast spin echo, sagittal and axial FLAIR, coronal T2 fast spin echo, axial gradient echo, axial diffusion and ADC through the brain. After the administration of contrast, axial and coronal 3D VIBE or T1 spin echo with fat saturation through the brain. COMPARISON: None. FINDINGS: Image quality: Degraded by patient motion artifact. CSF Spaces: Basal cisterns are patent. No extra-axial fluid collections. There is mild ventriculomegaly. Brain: No midline shift. No intracranial bleeds or masses. There is drxr-[id number] diffuse cerebral volume loss. There are mild periventricular and subcortical white matter chronic microvascular ischemic changes. No abnormal intracranial enhancement. The brainstem appears normal. Diffusion-weighted images demonstrate no acute ischemic insults. No chronic ischemic insults. Normal intravascular flow voids are present. Dural sinuses demonstrate normal postcontrast enhancement. Skull and face: Calvarial marrow is normal in signal. Orbits appear normal. Sinuses: Sinuses and mastoids appear clear. IMPRESSION: 1. No acute intracranial disease process. 2. No areas of acute or chronic infarction. 3. No abnormal intracranial mass or suspicious postcontrast enhancement. 4. Mild ventriculomegaly which could be due to normal pressure hydrocephalus versus central volume loss. Please correlate with clinical data. 5. Xmdl-wu-ghcicvgw diffuse cerebral volume loss. 6. Mild periventricular and subcortical white matter chronic microvascular ischemic change. Dictated by: Bambi Bello MD, PhD on 12/31/2020 at 13:01 Approved by: Bambi Bello MD, PhD on 12/31/2020 at 13:05
== END ==
PROVIDERS: PCP Family Medicine; Referring Provider Family Medicine; Visit Provider Family Medicine
DX: F03.90 Unspecified dementia, unspecified severity, without behavioral disturbance, psychotic disturbance, mood disturbance, and anxiety (principal); G93.89 Other specified disorders of brain
CPT/HCPCS: 70553

== ENCOUNTER → 2022-01-06 13:53 | Outpatient (CLI) | payer OTHER, SELFPAY ==
--- NOTE | 2022-01-06 | DI.MG.S_ITS ---
BILATERAL DIGITAL SCREENING MAMMOGRAM 3D/2D WITH CAD: 01/06/2022 CLINICAL: Routine screening. Comparison is made to exams dated: 12/13/2020 mammogram, 12/05/2019 mammogram, and 11/01/2018 mammogram - [facility]. There are scattered areas of fibroglandular density in both breasts (category b / 25%-50% glandular tissue). Current study was also evaluated with a Computer Aided Detection (CAD) system. There are benign oval shaped masses with a circumscribed margin in both breasts. There is a new focal asymmetry in the right breast central to the nipple middle depth. There also is a new focal asymmetry in the right breast at 3 o'clock posterior depth. No other significant masses, calcifications, or other findings are seen in either breast. IMPRESSION: INCOMPLETE: NEEDS ADDITIONAL IMAGING EVALUATION The new focal asymmetry in the right breast central to the nipple middle depth is indeterminate. Additional views with possible ultrasound are recommended. The new focal asymmetry in the right breast at 3 o'clock posterior depth is indeterminate. Additional views with possible ultrasound are recommended. There are benign oval shaped masses with a circumscribed margin in both breasts. Based on the Tyrer Cuzick model (a risk assessment model) the patient's lifetime risk is 2.7% and her 10 year risk is 0.0%. According to the ACR, ACS, and NCCN guidelines, an annual breast MRI exam along with mammogram is recommended if the patient's lifetime risk is 20% or greater. This exam was interpreted at Station ID: [id number]. NOTE: For mammograms, a report in lay terms will be sent to the patient. Approximately 15% of breast malignancies will not be visualized mammographically. In the management of a palpable breast mass, a negative mammogram must not discourage biopsy of a clinically suspicious lesion. Electronically Signed By: German Jung M.D. lc/:01/06/2022 15:34:16 letter sent: Additional Imaging Needed ACR BI-RADS Category 0: Incomplete 3340F
== END ==
PROVIDERS: PCP Family Medicine; Referring Provider Family Medicine; Visit Provider Family Medicine
DX: Z12.31 Encounter for screening mammogram for malignant neoplasm of breast (principal); N64.89 Other specified disorders of breast
CPT/HCPCS: 77063; 77067

== ENCOUNTER → 2022-02-03 13:14 | Outpatient (CLI) | payer OTHER, SELFPAY ==
--- NOTE | 2022-02-03 | DI.US.S_ITS ---
LIMITED ULTRASOUND OF RIGHT BREAST AND AXILLA: 02/03/2022 CLINICAL: Patient returns today to evaluate a focal asymmetry in the right breast. Comparison is made to exams dated: 01/06/2022 mammogram, 02/03/2022 mammogram, 12/13/2020 mammogram, 12/05/2019 mammogram, 11/01/2018 mammogram, and 09/13/2017 mammogram - [facility]. Color flow ultrasound of the right breast upper inner quadrant and axilla regions was performed. Gonzalez scale images of the real-time examination were reviewed. There were no sonographic correlates to the mammographic asymmetries in the 1:00 and 3:00 locations. There is an incidental 0.5 cm x 0.4 cm x 0.4 cm irregular area of possible fibroglandular tissue with an indistinct margin in the right breast at 2 o'clock posterior depth 7 cm from the nipple. This irregular area of focal fibroglandular tissue is hypoechoic. Color flow imaging demonstrates that there is no vascularity present. This is smaller than either finding on mammography. This is not convincingly seen as a discrete structure on radial and anti-radial planes. No significant abnormalities were seen sonographically in the right axilla. IMPRESSION: PROBABLY BENIGN The possible 0.5 cm irregular area of fibroglandular tissue in the right breast is probably benign. There are no abnormalities seen in the right breast to correspond with the mammography findings at 1 and 3 o'clock. A follow-up right mammogram and an ultrasound in 6 months is recommended to demonstrate stability. Findings and recommendations were conveyed to the patient at time of exam. This exam was interpreted at Station ID: [id number]. Electronically Signed By: Marissa rivero/:02/03/2022 15:58:43 letter sent: Followup Recommended Ultrasound BI-RADS: 3 Probably benign
--- NOTE | 2022-02-03 | DI.MG.S_ITS ---
UNILATERAL RIGHT DIGITAL DIAGNOSTIC MAMMOGRAM 3D/2D WITH ADDITIONAL VIEWS: 02/03/2022 CLINICAL: Additional evaluation requested from prior study. Comparison is made to exams dated: 01/06/2022 mammogram, 12/13/2020 mammogram, 01/01/2020 mammogram, 12/05/2019 mammogram, and 11/01/2018 mammogram - [facility]. There are scattered areas of fibroglandular density in the right breast (category b / 25%-50% glandular tissue). There are benign oval shaped masses with a circumscribed margin in the right breast. There is a 1 cm focal asymmetry with an indistinct and microlobulated margin in the right breast at 1 o'clock middle depth. This is not seen in additional views. This is less prominent. There also is an 8 mm indistinct focal asymmetry in the right breast at 2 o'clock posterior depth. This is not seen in additional views. This is less prominent. No other significant masses or calcifications are seen in the breast. IMPRESSION: INCOMPLETE: NEEDS ADDITIONAL IMAGING EVALUATION The 1 cm focal asymmetry in the right breast at 1 o'clock middle depth is less prominent with additional views and remains indeterminate. An ultrasound is recommended. The 8 mm focal asymmetry in the right breast at 2 o'clock posterior depth is also less prominent. An ultrasound is recommended. Ultrasound of both areas was performed immediately following this exam. Based on the Tyrer Cuzick model (a risk assessment model) the patient's lifetime risk is 2.7% and her 10 year risk is 0.0%. According to the ACR, ACS, and NCCN guidelines, an annual breast MRI exam along with mammogram is recommended if the patient's lifetime risk is 20% or greater. This exam was interpreted at Station ID: [id number]. NOTE: For mammograms, a report in lay terms will be sent to the patient. Approximately 15% of breast malignancies will not be visualized mammographically. In the management of a palpable breast mass, a negative mammogram must not discourage biopsy of a clinically suspicious lesion. Electronically Signed By: Marissa rivero/:02/03/2022 15:20:22 ACR BI-RADS Category 0: Incomplete 3340F
== END ==
PROVIDERS: PCP Family Medicine; Referring Provider Family Medicine; Visit Provider Family Medicine
DX: N64.89 Other specified disorders of breast (principal); R92.8 Other abnormal and inconclusive findings on diagnostic imaging of breast
CPT/HCPCS: 76642; 77065; G0279

== ENCOUNTER 2022-10-07 16:39 | Observation (INO) | payer OTHER, SELFPAY ==
[2022-10-07] VITALS (23 sets, daily range): BP systolic 135–184; BP diastolic 58–118; PULSE 79–112; RESP 18–42; TEMP 36.6; O2SAT 91–98; BMI 33.0
[2022-10-07 18:01] LABS: Lactate (Lactic Acid) 1.4 mmol/L (0.7-2.1)
[2022-10-07 18:03] LABS: Alanine Aminotransferase 26 IU/L (<35); Albumin 4.2 g/dL (3.5-5.0); Albumin Globulin Ratio 1.1 (1.0-2.8); Alkaline Phosphatase 111 U/L (38-126); Aspartate Aminotransferase 29 IU/L (14-36); BUN Creatinine Ratio 23.9 (6-22); Bilirubin Total 0.6 mg/dL (0.2-1.3); Blood Urea Nitrogen 17 mg/dL (7-17); Calcium 9.3 mg/dL (8.4-10.2); Carbon Dioxide 34 mmol/L (22-32); Chloride 99 mmol/L (98-107); Estimated Glomerular Filt Rate > 60 mL/min (>60); Globulin 3.8 g/dL (1.7-4.1); Glucose 108 mg/dL (80-110); HEMOLYSIS 17 (0-50); Potassium 4.5 mmol/L (3.4-5.1); Sodium 136 mmol/L (137-145)
[2022-10-07 18:07] LABS: Add Manual Diff / Slide Review NO; Basophils Absolute Auto 0 /uL (0-100); Basophils Percent Auto 0.4 % (0-2); Eosinophils Absolute Auto 0 /uL (0-450); Eosinophils Percent Auto 0.4 % (2-4); Hematocrit 40.1 % (36-46); Hemoglobin 13.7 g/dL (12.0-16.0); Lymphocytes Absolute Auto 800 /uL (1100-4500); Lymphocytes Percent Auto 10.2 % (25-40); Mean Corpuscular HGB Conc 34.1 % (30-36); Mean Corpuscular Hemoglobin 30.5 PG (26-34); Mean Corpuscular Volume 89.3 fL (80-100); Monocytes Absolute Auto 600 /uL (0-900); Monocytes Percent Auto 7.8 % (3-14); Neutrophils Absolute Auto 6600 /uL (1500-7000); Neutrophils Percent Auto 81.2 % (50-75); Platelet Count 220 X10^3/uL (150-400); Red Blood Cell Count 4.49 X10^6/uL (4.0-5.2); Red Cell Distribution Width 13.3 % (11.6-14.8); White Blood Cell Count 8.2 X10^3/uL (4.5-11.0)
[2022-10-07 18:11] LABS: NT-proBNP (BNP-Adult 18+) 149 pg/mL (<450)
--- NOTE | 2022-10-07 18:15 | ED_ITS ---
HPI - Extremity Problem <Nena Dsouza DO - Last Filed: 10/16/22 01:43> General Chief complaint: Extremity Problem,Nontraumatic Stated complaint: Weakness,trouble walking,cellulitis Time Seen by Provider: 10/07/22 18:00 Source: family and EMS Mode of arrival: EMS History of Present Illness HPI Narrative: Patient 77-year-old female history of dementia, hyperlipidemia presenting today with significant decline over the last few days. She typically is able to walk with minimal assistance but does need some help with other daily living activities. However today she fell this morning and then really is not able to walk. Her legs are quite edematous. The left 1 has some mild erythema EMS was concern for cellulitis. She is pleasantly demented without complaints. Daughter and are at bedside. Daughter reports that she needed to use a wheelchair today is abnormal. She feels like she might be dehydrated. Related Data Home Medications Medication Instructions Recorded Confirmed memantine 10 mg tablet 10 mg PO BID 06/12/21 10/11/22 Lightweight Lrg Wheelchair 10/11/22 10/11/22 cholecalciferol (vitamin D3) 25 25 mcg PO DAILY 10/11/22 10/11/22 mcg (1,000 unit) tablet rivastigmine 4.6 mg/24 hour 1 patch topical DAILY 10/11/22 10/11/22 transdermal patch Previous Rx's Medication Instructions Recorded Parking Permit... #1 ea 10/22/21 hydrochlorothiazide 25 mg tablet See Rx Instructions .Route 08/18/22 .COMPLEX #30 tabs Allergies Allergy/AdvReac Type Severity Reaction Status Date / Time No Known Drug Allergies Allergy Verified 10/09/22 08:30 Review of Systems <Nena Dsouza DO - Last Filed: 10/16/22 01:43> Review of Systems ROS Unobtainable: All systems reviewed & are unremarkable except as noted in HPI and below Patient History <Nena Dsouza DO - Last Filed: 10/16/22 01:43> Medical History (Updated 10/09/22 @ 17:45 by Raimundo Espinoza DO) Abnormal Pap smear of cervix Cataract (~2011) Chicken pox Dextroscoliosis Diverticulosis (07/12/14) Fibrocystic breast disease (1992) 4 para 4 Hemorrhoids Hyperlipidemia Measles Mumps Peptic ulcer disease (2004) Scoliosis (~1957) Surgical History History of breast biopsy (1992) History of colonoscopy (07/12/14) History of laparoscopy (04/2009) History of left inguinal hernia repair (1991) Family History Brother Age: 72 Cancer Sister Age: 81 Hypertension High cholesterol Brother No problems noted. Brother No problems noted. Brother ALS (amyotrophic lateral sclerosis) Father CAD (coronary artery disease) S/P CABG (coronary artery bypass graft) Arthritis Grandmother No problems noted. Mother Arthritis Hyperlipidemia Hypertension Grandfather No problems noted. Grandmother No problems noted. Sister No problems noted. Other Diabetes mellitus Social History marital status: number of children: 2 household members: spouse lives independently: Yes caregiver/support person: No housing: house Smoking Status: Never smoker second hand exposure: No alcohol intake: current substance use type: does not use Smoking Status: Never smoker alcohol intake frequency: holidays/special occasions only Substance Use Type: does not use Exam <Nena Dsouza DO - Last Filed: 10/16/22 01:43> Initial Vital Signs Initial Vital Signs: Vital Signs Temperature 97.8 F 10/07/22 16:51 Pulse Rate 91 H 10/07/22 16:51 Respiratory Rate 20 10/07/22 16:51 Blood Pressure 159/72 H 10/07/22 16:51 Pulse Oximetry 98 10/07/22 16:51 Oxygen Delivery Method Room Air 10/07/22 16:51 GENERAL: Alert pleasantly confused demented female HEENT: Head atraumatic,EOMI, pupils reactive, face symmetric, moist mucous membranes CARDIOVASCULAR: Regular rate and rhythm without murmurs, rubs or gallops. RESPIRATORY: Breath sounds equal bilaterally, no wheezes rales or rhonchi. ABDOMEN: Soft, nontender. Normoactive bowel sounds all 4 quadrants. No guarding or rebound. EXTREMITIES: Normal range of motion, no clubbing. +3 edematous Neurovascularly intact NEUROLOGICAL: Alert and oriented x0. Follows commands squeezes fingers unable to lift each leg but moves toes equally SKIN: Left leg mild erythema some scab no fluctuation no circumferential erythema <Stanislaw Mason MD - Last Filed: 10/13/22 12:22> Initial Vital Signs Initial Vital Signs: Vital Signs Temperature 97.8 F 10/07/22 16:51 Pulse Rate 91 H 10/07/22 16:51 Respiratory Rate 20 10/07/22 16:51 Blood Pressure 159/72 H 10/07/22 16:51 Pulse Oximetry 98 10/07/22 16:51 Oxygen Delivery Method Room Air 10/07/22 16:51 <Raimundo Espinoza DO - Last Filed: 10/10/22 07:12> Initial Vital Signs Initial Vital Signs: Vital Signs Temperature 97.8 F 10/07/22 16:51 Pulse Rate 91 H 10/07/22 16:51 Respiratory Rate 20 10/07/22 16:51 Blood Pressure 159/72 H 10/07/22 16:51 Pulse Oximetry 98 10/07/22 16:51 Oxygen Delivery Method Room Air 10/07/22 16:51 Course <Nena Dsouza DO - Last Filed: 10/16/22 01:43> Orders Ordered: Discontinued Medications Acetaminophen (Acetaminophen 325 Mg Tablet) 650 mg PO Q6H [facility] [place] Last Admin: 10/13/22 12:20 Dose: Not Given Documented By: Admin: 10/13/22 06:53 Dose: Not Given Documented By: Admin: 10/13/22 01:00 Dose: Not Given Documented By: Admin: 10/12/22 19:24 Dose: Not Given Documented By: Admin: 10/12/22 14:44 Dose: Not Given Documented By: Admin: 10/12/22 06:34 Dose: Not Given Documented By: Admin: 10/12/22 00:36 Dose: Not Given Documented By: Admin: 10/11/22 18:23 Dose: Not Given Documented By: Admin: 10/11/22 12:43 Dose: Not Given Documented By: Admin: 10/11/22 06:36 Dose: Not Given Documented By: Admin: 10/11/22 01:58 Dose: Not Given Documented By: Admin: 10/10/22 18:54 Dose: Not Given Documented By: Admin: 10/10/22 16:54 Dose: Not Given Documented By: Admin: 10/10/22 03:13 Dose: 650 mg Documented By: Admin: 10/10/22 00:40 Dose: Not Given Documented By: Admin: 10/09/22 19:51 Dose: 650 mg Documented By: LINDA Al Hydrox/Mg Hydrox/Simethicone (Mag Hydrox/Alum/Simeth 30 Ml Udc) 30 ml PO Q6HR PRN PRN Reason: Dyspepsia Atorvastatin Calcium (Atorvastatin 20 Mg Tablet) 20 mg PO DAILY [facility] [place] Last Admin: 10/09/22 09:08 Dose: 20 mg Documented By: RUPAL Diphenhydramine HCl (Diphenhydramine 50 Mg/Ml Vial) 25 mg IV NOW ONE Stop: 10/08/22 03:07 Last Admin: 10/08/22 03:17 Dose: 25 mg Documented By: Docusate Sodium (Docusate 100 Mg Capsule) 100 mg PO BID [facility] [place] Last Admin: 10/13/22 08:43 Dose: 100 mg Documented By: Admin: 10/12/22 21:17 Dose: 100 mg Documented By: Admin: 10/12/22 09:23 Dose: 100 mg Documented By: Admin: 10/11/22 21:56 Dose: 100 mg Documented By: Admin: 10/11/22 10:35 Dose: 100 mg Documented By: Admin: 10/10/22 21:04 Dose: 100 mg Documented By: Admin: 10/10/22 10:04 Dose: 100 mg Documented By: Admin: 10/09/22 20:49 Dose: 100 mg Documented By: LINDA Enoxaparin Sodium (Enoxaparin 40 Mg/0.4 Ml Syringe) 40 mg SUBCUT DAILY [facility] [place] Last Admin: 10/13/22 08:44 Dose: 40 mg Documented By: Admin: 10/12/22 09:23 Dose: 40 mg Documented By: Admin: 10/11/22 10:37 Dose: 40 mg Documented By: Admin: 10/10/22 10:04 Dose: 40 mg Documented By: KAVON Furosemide (Furosemide 40 Mg/4 Ml Vial) 20 mg IV NOW ONE Stop: 10/07/22 19:08 Last Admin: 10/07/22 19:22 Dose: 20 mg Documented By: BRIDGETTE Hydrochlorothiazide (Hydrochlorothiazide 25 Mg Tablet) 25 mg PO DAILY [facility] [place] Last Admin: 10/09/22 08:09 Dose: 25 mg Documented By: RUPAL Hydrochlorothiazide (Hydrochlorothiazide 25 Mg Tablet) 25 mg PO DAILY [facility] [place] Last Admin: 10/13/22 08:43 Dose: 25 mg Documented By: Admin: 10/12/22 09:23 Dose: 25 mg Documented By: Admin: 10/11/22 10:36 Dose: 25 mg Documented By: Admin: 10/10/22 10:04 Dose: 25 mg Documented By: KAVON Cefazolin Sodium 1 gm/ Sodium (Chloride) 100 mls @ 200 mls/hr IV NOW ONE Stop: 10/07/22 19:55 Last Infusion: 10/07/22 20:49 Dose: 0 mls/hr Documented By: Admin: 10/07/22 19:57 Dose: 200 mls/hr Documented By: BRIDGETTE Memantine (Memantine Hcl 5 Mg Tablet) 10 mg PO DAILY [facility] [place] Last Admin: 10/09/22 08:10 Dose: 10 mg Documented By: RUPAL Memantine (Memantine Hcl 5 Mg Tablet) 10 mg PO BID [facility] [place] Last Admin: 10/13/22 08:42 Dose: 10 mg Documented By: Admin: 10/12/22 21:17 Dose: 10 mg Documented By: Admin: 10/12/22 09:23 Dose: 10 mg Documented By: Admin: 10/11/22 21:55 Dose: 10 mg Documented By: Admin: 10/11/22 10:36 Dose: 10 mg Documented By: Admin: 10/10/22 21:03 Dose: 10 mg Documented By: Admin: 10/10/22 10:04 Dose: 10 mg Documented By: Admin: 10/09/22 20:49 Dose: 10 mg Documented By: LINDA Multivitamins (Multivitamin 1 Tablet) 1 tab PO DAILY [facility] [place] Last Admin: 10/13/22 08:44 Dose: 1 tab Documented By: Admin: 10/12/22 09:23 Dose: 1 tab Documented By: Admin: 10/11/22 10:37 Dose: 1 tab Documented By: Admin: 10/10/22 10:05 Dose: 1 tab Documented By: KAVON Naloxone HCl (Naloxone 0.4 Mg/Ml Vial) 0.2 mg IV Q2MIN PRN PRN Reason: Opiate Reversal Nf (Rivastigmine 4.6 Mg/24 Hour Patch 24 Hour) 1 patch TOP DAILY [facility] [place] Last Admin: 10/13/22 08:58 Dose: Not Given Documented By: Admin: 10/12/22 11:49 Dose: Not Given Documented By: LYLA Sertraline HCl (Sertraline 50 Mg Tablet) 25 mg PO BEDTIME [facility] [place] Sertraline HCl (Sertraline 50 Mg Tablet) 25 mg PO DAILY [facility] [place] Last Admin: 10/13/22 08:43 Dose: 25 mg Documented By: Admin: 10/12/22 09:24 Dose: Not Given Documented By: Admin: 10/11/22 10:40 Dose: Not Given Documented By: Admin: 10/10/22 10:04 Dose: 25 mg Documented By: KAVON Sodium Chloride (Sodium Chloride 0.9% Flush) 10 ml IV PRN PRN PRN Reason: Flush Sodium Chloride (Sodium Chloride 0.9% Flush) 10 ml IV BID [facility] [place] Last Admin: 10/13/22 08:58 Dose: Not Given Documented By: Admin: 10/12/22 21:17 Dose: 10 ml Documented By: Admin: 10/12/22 09:24 Dose: 10 ml Documented By: Admin: 10/11/22 21:56 Dose: 10 ml Documented By: Admin: 10/11/22 09:00 Dose: 10 ml Documented By: Admin: 10/10/22 21:04 Dose: 10 ml Documented By: Admin: 10/10/22 13:29 Dose: Not Given Documented By: Admin: 10/09/22 20:50 Dose: 10 ml Documented By: LINDA Vitamin D (Cholecalciferol (Vitamin D3) 1,000 Unit Tablet) 1,000 unit PO DAILY [facility] [place] Last Admin: 10/13/22 08:44 Dose: 1,000 unit Documented By: Admin: 10/12/22 09:23 Dose: 1,000 unit Documented By: Admin: 10/11/22 12:35 Dose: 1,000 unit Documented By: LYLA Vital Signs Vital signs: Vital Signs - 8 hr 10/09/22 10:34 10/09/22 10:16 10/09/22 10:19 Temperature Pulse Rate 84 32 L 82 Respiratory Rate 22 Blood Pressure 136/81 Pulse Oximetry 96 88 L Oxygen Delivery Method Room Air 10/09/22 10:28 10/09/22 15:49 10/09/22 15:50 Temperature Pulse Rate 77 Respiratory Rate Blood Pressure 162/103 H Pulse Oximetry 95 95 Oxygen Delivery Method 10/09/22 15:50 Temperature 99.3 F Pulse Rate Respiratory Rate Blood Pressure 152/65 H Pulse Oximetry Oxygen Delivery Method <Stanislaw Mason MD - Last Filed: 10/13/22 12:22> Orders Ordered: Discontinued Medications Acetaminophen (Acetaminophen 325 Mg Tablet) 650 mg PO Q6H [facility] [place] Last Admin: 10/13/22 12:20 Dose: Not Given Documented By: Admin: 10/13/22 06:53 Dose: Not Given Documented By: Admin: 10/13/22 01:00 Dose: Not Given Documented By: Admin: 10/12/22 19:24 Dose: Not Given Documented By: Admin: 10/12/22 14:44 Dose: Not Given Documented By: Admin: 10/12/22 06:34 Dose: Not Given Documented By: Admin: 10/12/22 00:36 Dose: Not Given Documented By: Admin: 10/11/22 18:23 Dose: Not Given Documented By: Admin: 10/11/22 12:43 Dose: Not Given Documented By: Admin: 10/11/22 06:36 Dose: Not Given Documented By: Admin: 10/11/22 01:58 Dose: Not Given Documented By: Admin: 10/10/22 18:54 Dose: Not Given Documented By: Admin: 10/10/22 16:54 Dose: Not Given Documented By: Admin: 10/10/22 03:13 Dose: 650 mg Documented By: Admin: 10/10/22 00:40 Dose: Not Given Documented By: Admin: 10/09/22 19:51 Dose: 650 mg Documented By: LINDA Al Hydrox/Mg Hydrox/Simethicone (Mag Hydrox/Alum/Simeth 30 Ml Udc) 30 ml PO Q6HR PRN PRN Reason: Dyspepsia Atorvastatin Calcium (Atorvastatin 20 Mg Tablet) 20 mg PO DAILY [facility] [place] Last Admin: 10/09/22 09:08 Dose: 20 mg Documented By: RUPAL Diphenhydramine HCl (Diphenhydramine 50 Mg/Ml Vial) 25 mg IV NOW ONE Stop: 10/08/22 03:07 Last Admin: 10/08/22 03:17 Dose: 25 mg Documented By: Docusate Sodium (Docusate 100 Mg Capsule) 100 mg PO BID [facility] [place] Last Admin: 10/13/22 08:43 Dose: 100 mg Documented By: Admin: 10/12/22 21:17 Dose: 100 mg Documented By: Admin: 10/12/22 09:23 Dose: 100 mg Documented By: Admin: 10/11/22 21:56 Dose: 100 mg Documented By: Admin: 10/11/22 10:35 Dose: 100 mg Documented By: Admin: 10/10/22 21:04 Dose: 100 mg Documented By: Admin: 10/10/22 10:04 Dose: 100 mg Documented By: Admin: 10/09/22 20:49 Dose: 100 mg Documented By: LINDA Enoxaparin Sodium (Enoxaparin 40 Mg/0.4 Ml Syringe) 40 mg SUBCUT DAILY [facility] [place] Last Admin: 10/13/22 08:44 Dose: 40 mg Documented By: Admin: 10/12/22 09:23 Dose: 40 mg Documented By: Admin: 10/11/22 10:37 Dose: 40 mg Documented By: Admin: 10/10/22 10:04 Dose: 40 mg Documented By: KAVON Furosemide (Furosemide 40 Mg/4 Ml Vial) 20 mg IV NOW ONE Stop: 10/07/22 19:08 Last Admin: 10/07/22 19:22 Dose: 20 mg Documented By: BRIDGETTE Hydrochlorothiazide (Hydrochlorothiazide 25 Mg Tablet) 25 mg PO DAILY [facility] [place] Last Admin: 10/09/22 08:09 Dose: 25 mg Documented By: RUPAL Hydrochlorothiazide (Hydrochlorothiazide 25 Mg Tablet) 25 mg PO DAILY [facility] [place] Last Admin: 10/13/22 08:43 Dose: 25 mg Documented By: Admin: 10/12/22 09:23 Dose: 25 mg Documented By: Admin: 10/11/22 10:36 Dose: 25 mg Documented By: Admin: 10/10/22 10:04 Dose: 25 mg Documented By: KAVON Cefazolin Sodium 1 gm/ Sodium (Chloride) 100 mls @ 200 mls/hr IV NOW ONE Stop: 10/07/22 19:55 Last Infusion: 10/07/22 20:49 Dose: 0 mls/hr Documented By: Admin: 10/07/22 19:57 Dose: 200 mls/hr Documented By: BRIDGETTE Memantine (Memantine Hcl 5 Mg Tablet) 10 mg PO DAILY [facility] [place] Last Admin: 10/09/22 08:10 Dose: 10 mg Documented By: RUPAL Memantine (Memantine Hcl 5 Mg Tablet) 10 mg PO BID [facility] [place] Last Admin: 10/13/22 08:42 Dose: 10 mg Documented By: Admin: 10/12/22 21:17 Dose: 10 mg Documented By: Admin: 10/12/22 09:23 Dose: 10 mg Documented By: Admin: 10/11/22 21:55 Dose: 10 mg Documented By: Admin: 10/11/22 10:36 Dose: 10 mg Documented By: Admin: 10/10/22 21:03 Dose: 10 mg Documented By: Admin: 10/10/22 10:04 Dose: 10 mg Documented By: Admin: 10/09/22 20:49 Dose: 10 mg Documented By: LINDA Multivitamins (Multivitamin 1 Tablet) 1 tab PO DAILY [facility] [place] Last Admin: 10/13/22 08:44 Dose: 1 tab Documented By: Admin: 10/12/22 09:23 Dose: 1 tab Documented By: Admin: 10/11/22 10:37 Dose: 1 tab Documented By: Admin: 10/10/22 10:05 Dose: 1 tab Documented By: KAVON Naloxone HCl (Naloxone 0.4 Mg/Ml Vial) 0.2 mg IV Q2MIN PRN PRN Reason: Opiate Reversal Nf (Rivastigmine 4.6 Mg/24 Hour Patch 24 Hour) 1 patch TOP DAILY [facility] [place] Last Admin: 10/13/22 08:58 Dose: Not Given Documented By: Admin: 10/12/22 11:49 Dose: Not Given Documented By: LYLA Sertraline HCl (Sertraline 50 Mg Tablet) 25 mg PO BEDTIME [facility] [place] Sertraline HCl (Sertraline 50 Mg Tablet) 25 mg PO DAILY [facility] [place] Last Admin: 10/13/22 08:43 Dose: 25 mg Documented By: Admin: 10/12/22 09:24 Dose: Not Given Documented By: Admin: 10/11/22 10:40 Dose: Not Given Documented By: Admin: 10/10/22 10:04 Dose: 25 mg Documented By: KAVON Sodium Chloride (Sodium Chloride 0.9% Flush) 10 ml IV PRN PRN PRN Reason: Flush Sodium Chloride (Sodium Chloride 0.9% Flush) 10 ml IV BID [facility] [place] Last Admin: 10/13/22 08:58 Dose: Not Given Documented By: Admin: 10/12/22 21:17 Dose: 10 ml Documented By: Admin: 10/12/22 09:24 Dose: 10 ml Documented By: Admin: 10/11/22 21:56 Dose: 10 ml Documented By: Admin: 10/11/22 09:00 Dose: 10 ml Documented By: Admin: 10/10/22 21:04 Dose: 10 ml Documented By: Admin: 10/10/22 13:29 Dose: Not Given Documented By: Admin: 10/09/22 20:50 Dose: 10 ml Documented By: LINDA Vitamin D (Cholecalciferol (Vitamin D3) 1,000 Unit Tablet) 1,000 unit PO DAILY [facility] [place] Last Admin: 10/13/22 08:44 Dose: 1,000 unit Documented By: Admin: 10/12/22 09:23 Dose: 1,000 unit Documented By: Admin: 10/11/22 12:35 Dose: 1,000 unit Documented By: LYLA Vital Signs Vital signs: Vital Signs - 8 hr 10/09/22 10:34 10/09/22 10:16 10/09/22 10:19 Temperature Pulse Rate 84 32 L 82 Respiratory Rate 22 Blood Pressure 136/81 Pulse Oximetry 96 88 L Oxygen Delivery Method Room Air 10/09/22 10:28 10/09/22 15:49 10/09/22 15:50 Temperature Pulse Rate 77 Respiratory Rate Blood Pressure 162/103 H Pulse Oximetry 95 95 Oxygen Delivery Method 10/09/22 15:50 Temperature 99.3 F Pulse Rate Respiratory Rate Blood Pressure 152/65 H Pulse Oximetry Oxygen Delivery Method <Raimundo Espinoza DO - Last Filed: 10/10/22 07:12> Orders Ordered: Discontinued Medications Acetaminophen (Acetaminophen 325 Mg Tablet) 650 mg PO Q6H [facility] [place] Last Admin: 10/13/22 12:20 Dose: Not Given Documented By: Admin: 10/13/22 06:53 Dose: Not Given Documented By: Admin: 10/13/22 01:00 Dose: Not Given Documented By: Admin: 10/12/22 19:24 Dose: Not Given Documented By: Admin: 10/12/22 14:44 Dose: Not Given Documented By: Admin: 10/12/22 06:34 Dose: Not Given Documented By: Admin: 10/12/22 00:36 Dose: Not Given Documented By: Admin: 10/11/22 18:23 Dose: Not Given Documented By: Admin: 10/11/22 12:43 Dose: Not Given Documented By: Admin: 10/11/22 06:36 Dose: Not Given Documented By: Admin: 10/11/22 01:58 Dose: Not Given Documented By: Admin: 10/10/22 18:54 Dose: Not Given Documented By: Admin: 10/10/22 16:54 Dose: Not Given Documented By: Admin: 10/10/22 03:13 Dose: 650 mg Documented By: Admin: 10/10/22 00:40 Dose: Not Given Documented By: Admin: 10/09/22 19:51 Dose: 650 mg Documented By: LINDA Al Hydrox/Mg Hydrox/Simethicone (Mag Hydrox/Alum/Simeth 30 Ml Udc) 30 ml PO Q6HR PRN PRN Reason: Dyspepsia Atorvastatin Calcium (Atorvastatin 20 Mg Tablet) 20 mg PO DAILY [facility] [place] Last Admin: 10/09/22 09:08 Dose: 20 mg Documented By: MPO Diphenhydramine HCl (Diphenhydramine 50 Mg/Ml Vial) 25 mg IV NOW ONE Stop: 10/08/22 03:07 Last Admin: 10/08/22 03:17 Dose: 25 mg Documented By: Docusate Sodium (Docusate 100 Mg Capsule) 100 mg PO BID [facility] [place] Last Admin: 10/13/22 08:43 Dose: 100 mg Documented By: Admin: 10/12/22 21:17 Dose: 100 mg Documented By: Admin: 10/12/22 09:23 Dose: 100 mg Documented By: Admin: 10/11/22 21:56 Dose: 100 mg Documented By: Admin: 10/11/22 10:35 Dose: 100 mg Documented By: Admin: 10/10/22 21:04 Dose: 100 mg Documented By: Admin: 10/10/22 10:04 Dose: 100 mg Documented By: Admin: 10/09/22 20:49 Dose: 100 mg Documented By: LINDA Enoxaparin Sodium (Enoxaparin 40 Mg/0.4 Ml Syringe) 40 mg SUBCUT DAILY [facility] [place] Last Admin: 10/13/22 08:44 Dose: 40 mg Documented By: Admin: 10/12/22 09:23 Dose: 40 mg Documented By: Admin: 10/11/22 10:37 Dose: 40 mg Documented By: Admin: 10/10/22 10:04 Dose: 40 mg Documented By: KAVON Furosemide (Furosemide 40 Mg/4 Ml Vial) 20 mg IV NOW ONE Stop: 10/07/22 19:08 Last Admin: 10/07/22 19:22 Dose: 20 mg Documented By: BRIDGETTE Hydrochlorothiazide (Hydrochlorothiazide 25 Mg Tablet) 25 mg PO DAILY [facility] [place] Last Admin: 10/09/22 08:09 Dose: 25 mg Documented By: RUPAL Hydrochlorothiazide (Hydrochlorothiazide 25 Mg Tablet) 25 mg PO DAILY [facility] [place] Last Admin: 10/13/22 08:43 Dose: 25 mg Documented By: Admin: 10/12/22 09:23 Dose: 25 mg Documented By: Admin: 10/11/22 10:36 Dose: 25 mg Documented By: Admin: 10/10/22 10:04 Dose: 25 mg Documented By: KAVON Cefazolin Sodium 1 gm/ Sodium (Chloride) 100 mls @ 200 mls/hr IV NOW ONE Stop: 10/07/22 19:55 Last Infusion: 10/07/22 20:49 Dose: 0 mls/hr Documented By: Admin: 10/07/22 19:57 Dose: 200 mls/hr Documented By: BRIDGETTE Memantine (Memantine Hcl 5 Mg Tablet) 10 mg PO DAILY [facility] [place] Last Admin: 10/09/22 08:10 Dose: 10 mg Documented By: RUPAL Memantine (Memantine Hcl 5 Mg Tablet) 10 mg PO BID [facility] [place] Last Admin: 10/13/22 08:42 Dose: 10 mg Documented By: Admin: 10/12/22 21:17 Dose: 10 mg Documented By: Admin: 10/12/22 09:23 Dose: 10 mg Documented By: Admin: 10/11/22 21:55 Dose: 10 mg Documented By: Admin: 10/11/22 10:36 Dose: 10 mg Documented By: Admin: 10/10/22 21:03 Dose: 10 mg Documented By: Admin: 10/10/22 10:04 Dose: 10 mg Documented By: Admin: 10/09/22 20:49 Dose: 10 mg Documented By: LINDA Multivitamins (Multivitamin 1 Tablet) 1 tab PO DAILY [facility] [place] Last Admin: 10/13/22 08:44 Dose: 1 tab Documented By: Admin: 10/12/22 09:23 Dose: 1 tab Documented By: Admin: 10/11/22 10:37 Dose: 1 tab Documented By: Admin: 10/10/22 10:05 Dose: 1 tab Documented By: KAVON Naloxone HCl (Naloxone 0.4 Mg/Ml Vial) 0.2 mg IV Q2MIN PRN PRN Reason: Opiate Reversal Nf (Rivastigmine 4.6 Mg/24 Hour Patch 24 Hour) 1 patch TOP DAILY [facility] [place] Last Admin: 10/13/22 08:58 Dose: Not Given Documented By: Admin: 10/12/22 11:49 Dose: Not Given Documented By: LYLA Sertraline HCl (Sertraline 50 Mg Tablet) 25 mg PO BEDTIME [facility] [place] Sertraline HCl (Sertraline 50 Mg Tablet) 25 mg PO DAILY [facility] [place] Last Admin: 10/13/22 08:43 Dose: 25 mg Documented By: Admin: 10/12/22 09:24 Dose: Not Given Documented By: Admin: 10/11/22 10:40 Dose: Not Given Documented By: Admin: 10/10/22 10:04 Dose: 25 mg Documented By: KAVON Sodium Chloride (Sodium Chloride 0.9% Flush) 10 ml IV PRN PRN PRN Reason: Flush Sodium Chloride (Sodium Chloride 0.9% Flush) 10 ml IV BID [facility] [place] Last Admin: 10/13/22 08:58 Dose: Not Given Documented By: Admin: 10/12/22 21:17 Dose: 10 ml Documented By: Admin: 10/12/22 09:24 Dose: 10 ml Documented By: Admin: 10/11/22 21:56 Dose: 10 ml Documented By: Admin: 10/11/22 09:00 Dose: 10 ml Documented By: Admin: 10/10/22 21:04 Dose: 10 ml Documented By: Admin: 10/10/22 13:29 Dose: Not Given Documented By: Admin: 10/09/22 20:50 Dose: 10 ml Documented By: LINDA Vitamin D (Cholecalciferol (Vitamin D3) 1,000 Unit Tablet) 1,000 unit PO DAILY [facility] [place] Last Admin: 10/13/22 08:44 Dose: 1,000 unit Documented By: Admin: 10/12/22 09:23 Dose: 1,000 unit Documented By: Admin: 10/11/22 12:35 Dose: 1,000 unit Documented By: LYLA Vital Signs Vital signs: Vital Signs - 8 hr 10/09/22 10:34 10/09/22 10:16 10/09/22 10:19 Temperature Pulse Rate 84 32 L 82 Respiratory Rate 22 Blood Pressure 136/81 Pulse Oximetry 96 88 L Oxygen Delivery Method Room Air 10/09/22 10:28 10/09/22 15:49 10/09/22 15:50 Temperature Pulse Rate 77 Respiratory Rate Blood Pressure 162/103 H Pulse Oximetry 95 95 Oxygen Delivery Method 10/09/22 15:50 Temperature 99.3 F Pulse Rate Respiratory Rate Blood Pressure 152/65 H Pulse Oximetry Oxygen Delivery Method MDM - Extremity (Nontraumatic) <Nena Dsouza, DO - Last Filed: 10/16/22 01:43> Lab Data 10/08/22 20:26 10/08/22 20:26 Labs: Lab Results 10/07/22 10/07/22 10/07/22 Range/Units 17:38 17:38 17:38 WBC 8.2 (4.5-11.0) X10^3/uL RBC 4.49 (4.0-5.2) X10^6/uL Hgb 13.7 (12.0-16.0) g/dL Hct 40.1 (36-46) % MCV 89.3 (80-100) fL MCH 30.5 (26-34) PG MCHC 34.1 (30-36) % RDW 13.3 (11.6-14.8) % Plt Count 220 (150-400) X10^3/uL Neut % (Auto) 81.2 H (50-75) % Lymph % (Auto) 10.2 L (25-40) % [place] % (Auto) 7.8 (3-14) % Eos % (Auto) 0.4 L (2-4) % Baso % (Auto) 0.4 (0-2) % Neut # (Auto) 6600 (7898-5427) /uL Lymph # (Auto) 800 L (4392-9194) /uL [place] [place] # (Auto) 600 (0-900) /uL Eos # (Auto) 0 (0-450) /uL Baso # (Auto) 0 (0-100) /uL Sodium 136 L (137-145) mmol/L Potassium 4.5 (3.4-5.1) mmol/L Chloride 99 (98-107) mmol/L Carbon Dioxide 34 H (22-32) mmol/L BUN 17 (7-17) mg/dL Creatinine 0.71 (0.52-1.04) mg/dL Estimated GFR > 60 (>60) mL/min BUN/Creatinine Ratio 23.9 H (6-22) Glucose 108 (80-110) mg/dL Lactate 1.4 (0.7-2.1) mmol/L Calcium 9.3 (8.4-10.2) mg/dL Total Bilirubin 0.6 (0.2-1.3) mg/dL AST 29 (14-36) IU/L ALT 26 (<35) IU/L Alkaline Phosphatase 111 (38-126) U/L Total Creatine Kinase (30-135) U/L Troponin I (0.01-0.034) ng/mL NT-Pro-B Natriuret Pep 149 (<450) pg/mL Total Protein 8.0 (6.3-8.2) g/dL Albumin 4.2 (3.5-5.0) g/dL Globulin 3.8 (1.7-4.1) g/dL Albumin/Globulin Ratio 1.1 (1.0-2.8) Procalcitonin < 0.03 (<0.5) ng/mL Urine Color Urine Appearance Urine pH (4.5-8.0) Ur Specific [place] (1.000-1.035) Urine Protein (Negative) Urine Glucose (UA) (Negative) g/dL Urine Ketones (NEGATIVE) Urine Occult Blood (Negative) Urine Nitrate (Negative) Urine Bilirubin (NEGATIVE) Urine Urobilinogen (0.2) E.U./dL Ur Leukocyte Esterase (NEGATIVE) Urine RBC (0-5/HPF) Urine WBC (0-5/HPF) Ur Squamous Epith Cells (0-5/HPF) Urine Bacteria (None) Ur Culture Indicated? 10/07/22 10/07/22 10/08/22 Range/Units 17:38 18:03 07:00 WBC 7.6 (4.5-11.0) X10^3/uL RBC 4.26 (4.0-5.2) X10^6/uL Hgb 13.0 (12.0-16.0) g/dL Hct 37.7 (36-46) % MCV 88.6 (80-100) fL MCH 30.5 (26-34) PG MCHC 34.4 (30-36) % RDW 13.2 (11.6-14.8) % Plt Count 210 (150-400) X10^3/uL Neut % (Auto) 80.2 H (50-75) % Lymph % (Auto) 10.9 L (25-40) % [place] % (Auto) 8.3 (3-14) % Eos % (Auto) 0.3 L (2-4) % Baso % (Auto) 0.3 (0-2) % Neut # (Auto) 6100 (9247-6001) /uL Lymph # (Auto) 800 L (1163-0195) /uL [place] # (Auto) 600 (0-900) /uL Eos # (Auto) 0 (0-450) /uL Baso # (Auto) 0 (0-100) /uL Sodium (137-145) mmol/L Potassium (3.4-5.1) mmol/L Chloride (98-107) mmol/L Carbon Dioxide (22-32) mmol/L BUN (7-17) mg/dL Creatinine (0.52-1.04) mg/dL Estimated GFR (>60) mL/min BUN/Creatinine Ratio (6-22) Glucose (80-110) mg/dL Lactate (0.7-2.1) mmol/L Calcium (8.4-10.2) mg/dL Total Bilirubin (0.2-1.3) mg/dL AST (14-36) IU/L ALT (<35) IU/L Alkaline Phosphatase (38-126) U/L Total Creatine Kinase 263 H (30-135) U/L Troponin I < 0.012 (0.01-0.034) ng/mL NT-Pro-B Natriuret Pep (<450) pg/mL Total Protein (6.3-8.2) g/dL Albumin (3.5-5.0) g/dL Globulin (1.7-4.1) g/dL Albumin/Globulin Ratio (1.0-2.8) Procalcitonin (<0.5) ng/mL Urine Color Yellow Urine Appearance Clear Urine pH 7.0 (4.5-8.0) Ur Specific [place] 1.015 (1.000-1.035) Urine Protein Negative (Negative) Urine Glucose (UA) Negative (Negative) g/dL Urine Ketones Negative (NEGATIVE) Urine Occult Blood Negative (Negative) Urine Nitrate Negative (Negative) Urine Bilirubin Negative (NEGATIVE) Urine Urobilinogen 1.0 (0.2) E.U./dL Ur Leukocyte Esterase Negative (NEGATIVE) Urine RBC None seen (0-5/HPF) Urine WBC None seen (0-5/HPF) Ur Squamous Epith Cells 0-1 /hpf (0-5/HPF) Urine Bacteria None seen (None) Ur Culture Indicated? Cult not indicated 10/08/22 10/08/22 10/08/22 Range/Units 07:00 20:26 20:26 WBC 7.2 (4.5-11.0) X10^3/uL RBC 4.22 (4.0-5.2) X10^6/uL Hgb 13.1 (12.0-16.0) g/dL Hct 37.4 (36-46) % MCV 88.7 (80-100) fL MCH 31.1 (26-34) PG MCHC 35.1 (30-36) % RDW 13.6 (11.6-14.8) % Plt Count 204 (150-400) X10^3/uL Neut % (Auto) 75.9 H (50-75) % Lymph % (Auto) 13.5 L (25-40) % [place] % (Auto) 9.7 (3-14) % Eos % (Auto) 0.6 L (2-4) % Baso % (Auto) 0.3 (0-2) % Neut # (Auto) 5500 (7582-7600) /uL Lymph # (Auto) 1000 L (1005-7489) /uL [place] # (Auto) 700 (0-900) /uL Eos # (Auto) 0 (0-450) /uL Baso # (Auto) 0 (0-100) /uL Sodium 136 L 135 L (137-145) mmol/L Potassium 3.7 3.6 (3.4-5.1) mmol/L Chloride 97 L 98 (98-107) mmol/L Carbon Dioxide 35 H 32 (22-32) mmol/L BUN 13 12 (7-17) mg/dL Creatinine 0.66 0.65 (0.52-1.04) mg/dL Estimated GFR > 60 > 60 (>60) mL/min BUN/Creatinine Ratio 19.7 18.5 (6-22) Glucose 116 H 113 H (80-110) mg/dL Lactate (0.7-2.1) mmol/L Calcium 8.8 8.7 (8.4-10.2) mg/dL Total Bilirubin 0.8 1.0 (0.2-1.3) mg/dL AST 29 32 (14-36) IU/L ALT 22 22 (<35) IU/L Alkaline Phosphatase 112 112 (38-126) U/L Total Creatine Kinase (30-135) U/L Troponin I (0.01-0.034) ng/mL NT-Pro-B Natriuret Pep (<450) pg/mL Total Protein 7.0 7.0 (6.3-8.2) g/dL Albumin 3.8 3.8 (3.5-5.0) g/dL Globulin 3.2 3.2 (1.7-4.1) g/dL Albumin/Globulin Ratio 1.2 1.2 (1.0-2.8) Procalcitonin (<0.5) ng/mL Urine Color Urine Appearance Urine pH (4.5-8.0) Ur Specific [place] (1.000-1.035) Urine Protein (Negative) Urine Glucose (UA) (Negative) g/dL Urine Ketones (NEGATIVE) Urine Occult Blood (Negative) Urine Nitrate (Negative) Urine Bilirubin (NEGATIVE) Urine Urobilinogen (0.2) E.U./dL Ur Leukocyte Esterase (NEGATIVE) Urine RBC (0-5/HPF) Urine WBC (0-5/HPF) Ur Squamous Epith Cells (0-5/HPF) Urine Bacteria (None) Ur Culture Indicated? Imaging Data CT scan - head: Radiologist's Impression: PROCEDURE:? CT HEAD/BRAIN WO CON ? INDICATIONS:? increasing confusion and falls ? TECHNIQUE:? Noncontrast 4.5 mm thick angled axial sections acquired from the foramen magnum to the vertex, with coronal and sagittal reformats.? For radiation dose reduction, the following was used:? automated exposure control, adjustment of mA and/or kV according to patient size.? ? COMPARISON:? [facility], CT, CT CERVICAL SPINE WO CON, 08/10/2018, 16:03.? [facility], MR, MR HEAD/BRAIN WO/W CON, 12/31/2020, 12:28.? [facility], CT, CT HEAD/BRAIN WO CON, 08/10/2018, 16:03. ? FINDINGS:? Image quality:? This evaluation is limited, secondary to the patient's inability to fully cooperate with the examination.? This examination is limited by involuntary motion artifact.? ? CSF spaces:? Basal cisterns are patent.? No extra-axial fluid collections.? The ventricles are symmetric in size and shape.? ? Brain:? No intracranial bleeds or masses.? There is cerebral volume loss for age, with resultant ventricular and sulcal prominence.? There are periventricular and deep white matter chronic small vessel ischemic changes.? There is intracranial internal carotid artery atherosclerosis.? ? Skull and face:? Calvarium and visualized facial bones appear intact, without suspicious lesions.? ? 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 ? Sinuses:? Visualized sinuses and mastoids are clear.? ? ? IMPRESSION:? Limited study demonstrating no constance acute intracranial hemorrhage or other significant intracranial abnormality. ? ? Dictated by: Monty Torres M.D. on 10/07/2022 at 17:57 ? ? Approved by: Monty Torres M.D. on 10/07/2022 at 18:00 ? Chest x-ray: Radiologist's Impression: PROCEDURE:? XR CHEST 1V ? INDICATIONS:? weakness confusion ? TECHNIQUE:? One view of the chest was acquired.? ? COMPARISON:? [facility], CR, XR CHEST 1V, 06/18/2020, 11:20. ? FINDINGS:? ? Surgical changes and devices:? None.? ? Lungs and pleura:? Increased pulmonary vascularity is present. ? Mediastinum:? Mediastinal contours appear normal.? Heart size is prominent. ? Bones and chest wall:? No suspicious bony lesions.? Overlying soft tissues appear unremarkable.? Prominent scoliotic curvature is present. ? IMPRESSION:? Mild appearance of increased vascularity suggestive of edema. ? ? Dictated by: Sindy Voss M.D. on 10/07/2022 at 19:01 ? ? Approved by: Snidy Voss M.D. on 10/07/2022 at 19:01? ECG Data Interpretation: Sinus rhythm rate 86 NJ interval 174 QRS [address] changes MDM Narrative Medical decision making narrative: Patient 77-year-old female with them and presenting today with increased decline over the last couple of days. She is having increased swelling in her leg concern for possible cellulitis and increased falling. The erythema on her leg is significant. She is no fever no leukocytosis possibly from significant edema she has she does have some sores. She is given 1 dose of Ancef and blood cultures are pending. She has no UTI. Head CT has been reviewed and is negative. Electrolytes have been reviewed no significant abnormality no evidence of LUZ MARIA. She is given 1 dose of Lasix she urinated quite a bit. Chest x-ray is 0 year and BNP is negative no obvious congestive heart failure. At this time patient is really not meeting any sort of admission criteria however she has an acute change without an obvious cause. She is an unsafe. Family is unable to care for her. She does have caregivers caregivers but there only for a few hours daily 5 days a week. She does not have 247 care. She would benefit from physical therapy evaluation and social work evaluation. She did get agitated throughout the night and was given 1 dose of Benadryl to help her sleep. Patient signed out to Dr. Mason for further evaluation and monitoring. <Stanislaw Mason MD - Last Filed: 10/13/22 12:22> Lab Data Labs: Lab Results 10/07/22 10/07/22 10/07/22 Range/Units 17:38 17:38 17:38 WBC 8.2 (4.5-11.0) X10^3/uL RBC 4.49 (4.0-5.2) X10^6/uL Hgb 13.7 (12.0-16.0) g/dL Hct 40.1 (36-46) % MCV 89.3 (80-100) fL MCH 30.5 (26-34) PG MCHC 34.1 (30-36) % RDW 13.3 (11.6-14.8) % Plt Count 220 (150-400) X10^3/uL Neut % (Auto) 81.2 H (50-75) % Lymph % (Auto) 10.2 L (25-40) % [place] % (Auto) 7.8 (3-14) % Eos % (Auto) 0.4 L (2-4) % Baso % (Auto) 0.4 (0-2) % Neut # (Auto) 6600 (2801-4105) /uL Lymph # (Auto) 800 L (9563-6775) /uL [place] # (Auto) 600 (0-900) /uL Eos # (Auto) 0 (0-450) /uL Baso # (Auto) 0 (0-100) /uL Sodium 136 L (137-145) mmol/L Potassium 4.5 (3.4-5.1) mmol/L Chloride 99 (98-107) mmol/L Carbon Dioxide 34 H (22-32) mmol/L BUN 17 (7-17) mg/dL Creatinine 0.71 (0.52-1.04) mg/dL Estimated GFR > 60 (>60) mL/min BUN/Creatinine Ratio 23.9 H (6-22) Glucose 108 (80-110) mg/dL Lactate 1.4 (0.7-2.1) mmol/L Calcium 9.3 (8.4-10.2) mg/dL Total Bilirubin 0.6 (0.2-1.3) mg/dL AST 29 (14-36) IU/L ALT 26 (<35) IU/L Alkaline Phosphatase 111 (38-126) U/L Total Creatine Kinase (30-135) U/L Troponin I (0.01-0.034) ng/mL NT-Pro-B Natriuret Pep 149 (<450) pg/mL Total Protein 8.0 (6.3-8.2) g/dL Albumin 4.2 (3.5-5.0) g/dL Globulin 3.8 (1.7-4.1) g/dL Albumin/Globulin Ratio 1.1 (1.0-2.8) Procalcitonin < 0.03 (<0.5) ng/mL Urine Color Urine Appearance Urine pH (4.5-8.0) Ur Specific [place] (1.000-1.035) Urine Protein (Negative) Urine Glucose (UA) (Negative) g/dL Urine Ketones (NEGATIVE) Urine Occult Blood (Negative) Urine Nitrate (Negative) Urine Bilirubin (NEGATIVE) Urine Urobilinogen (0.2) E.U./dL Ur Leukocyte Esterase (NEGATIVE) Urine RBC (0-5/HPF) Urine WBC (0-5/HPF) Ur Squamous Epith Cells (0-5/HPF) Urine Bacteria (None) Ur Culture Indicated? 10/07/22 10/07/22 10/08/22 Range/Units 17:38 18:03 07:00 WBC 7.6 (4.5-11.0) X10^3/uL RBC 4.26 (4.0-5.2) X10^6/uL Hgb 13.0 (12.0-16.0) g/dL Hct 37.7 (36-46) % MCV 88.6 (80-100) fL MCH 30.5 (26-34) PG MCHC 34.4 (30-36) % RDW 13.2 (11.6-14.8) % Plt Count 210 (150-400) X10^3/uL Neut % (Auto) 80.2 H (50-75) % Lymph % (Auto) 10.9 L (25-40) % [place] % (Auto) 8.3 (3-14) % Eos % (Auto) 0.3 L (2-4) % Baso % (Auto) 0.3 (0-2) % Neut # (Auto) 6100 (0767-9145) /uL Lymph # (Auto) 800 L (7668-7097) /uL [place] # (Auto) 600 (0-900) /uL Eos # (Auto) 0 (0-450) /uL Baso # (Auto) 0 (0-100) /uL Sodium (137-145) mmol/L Potassium (3.4-5.1) mmol/L Chloride (98-107) mmol/L Carbon Dioxide (22-32) mmol/L BUN (7-17) mg/dL Creatinine (0.52-1.04) mg/dL Estimated GFR (>60) mL/min BUN/Creatinine Ratio (6-22) Glucose (80-110) mg/dL Lactate (0.7-2.1) mmol/L Calcium (8.4-10.2) mg/dL Total Bilirubin (0.2-1.3) mg/dL AST (14-36) IU/L ALT (<35) IU/L Alkaline Phosphatase (38-126) U/L Total Creatine Kinase 263 H (30-135) U/L Troponin I < 0.012 (0.01-0.034) ng/mL NT-Pro-B Natriuret Pep (<450) pg/mL Total Protein (6.3-8.2) g/dL Albumin (3.5-5.0) g/dL Globulin (1.7-4.1) g/dL Albumin/Globulin Ratio (1.0-2.8) Procalcitonin (<0.5) ng/mL Urine Color Yellow Urine Appearance Clear Urine pH 7.0 (4.5-8.0) Ur Specific [place] 1.015 (1.000-1.035) Urine Protein Negative (Negative) Urine Glucose (UA) Negative (Negative) g/dL Urine Ketones Negative (NEGATIVE) Urine Occult Blood Negative (Negative) Urine Nitrate Negative (Negative) Urine Bilirubin Negative (NEGATIVE) Urine Urobilinogen 1.0 (0.2) E.U./dL Ur Leukocyte Esterase Negative (NEGATIVE) Urine RBC None seen (0-5/HPF) Urine WBC None seen (0-5/HPF) Ur Squamous Epith Cells 0-1 /hpf (0-5/HPF) Urine Bacteria None seen (None) Ur Culture Indicated? Cult not indicated 10/08/22 10/08/22 10/08/22 Range/Units 07:00 20:26 20:26 WBC 7.2 (4.5-11.0) X10^3/uL RBC 4.22 (4.0-5.2) X10^6/uL Hgb 13.1 (12.0-16.0) g/dL Hct 37.4 (36-46) % MCV 88.7 (80-100) fL MCH 31.1 (26-34) PG MCHC 35.1 (30-36) % RDW 13.6 (11.6-14.8) % Plt Count 204 (150-400) X10^3/uL Neut % (Auto) 75.9 H (50-75) % Lymph % (Auto) 13.5 L (25-40) % [place] % (Auto) 9.7 (3-14) % Eos % (Auto) 0.6 L (2-4) % Baso % (Auto) 0.3 (0-2) % Neut # (Auto) 5500 (7038-3942) /uL Lymph # (Auto) 1000 L (8968-7597) /uL [place] # (Auto) 700 (0-900) /uL Eos # (Auto) 0 (0-450) /uL Baso # (Auto) 0 (0-100) /uL Sodium 136 L 135 L (137-145) mmol/L Potassium 3.7 3.6 (3.4-5.1) mmol/L Chloride 97 L 98 (98-107) mmol/L Carbon Dioxide 35 H 32 (22-32) mmol/L BUN 13 12 (7-17) mg/dL Creatinine 0.66 0.65 (0.52-1.04) mg/dL Estimated GFR > 60 > 60 (>60) mL/min BUN/Creatinine Ratio 19.7 18.5 (6-22) Glucose 116 H 113 H (80-110) mg/dL Lactate (0.7-2.1) mmol/L Calcium 8.8 8.7 (8.4-10.2) mg/dL Total Bilirubin 0.8 1.0 (0.2-1.3) mg/dL AST 29 32 (14-36) IU/L ALT 22 22 (<35) IU/L Alkaline Phosphatase 112 112 (38-126) U/L Total Creatine Kinase (30-135) U/L Troponin I (0.01-0.034) ng/mL NT-Pro-B Natriuret Pep (<450) pg/mL Total Protein 7.0 7.0 (6.3-8.2) g/dL Albumin 3.8 3.8 (3.5-5.0) g/dL Globulin 3.2 3.2 (1.7-4.1) g/dL Albumin/Globulin Ratio 1.2 1.2 (1.0-2.8) Procalcitonin (<0.5) ng/mL Urine Color Urine Appearance Urine pH (4.5-8.0) Ur Specific [place] (1.000-1.035) Urine Protein (Negative) Urine Glucose (UA) (Negative) g/dL Urine Ketones (NEGATIVE) Urine Occult Blood (Negative) Urine Nitrate (Negative) Urine Bilirubin (NEGATIVE) Urine Urobilinogen (0.2) E.U./dL Ur Leukocyte Esterase (NEGATIVE) Urine RBC (0-5/HPF) Urine WBC (0-5/HPF) Ur Squamous Epith Cells (0-5/HPF) Urine Bacteria (None) Ur Culture Indicated? MDM Narrative Medical decision making narrative: Patient 77-year-old female with them and presenting today with increased decline over the last couple of days. She is having increased swelling in her leg concern for possible cellulitis and increased falling. The erythema on her leg is significant. She is no fever no leukocytosis possibly from significant edema she has she does have some sores. She is given 1 dose of Ancef and blood cultures are pending. She has no UTI. Head CT has been reviewed and is negative. Electrolytes have been reviewed no significant abnormality no evidence of LUZ MARIA. She is given 1 dose of Lasix she urinated quite a bit. Chest x-ray is 0 year and BNP is negative no obvious congestive heart failure. At this time patient is really not meeting any sort of admission criteria however she has an acute change without an obvious cause. She is an unsafe. Family is unable to care for her. She does have caregivers caregivers but there only for a few hours daily 5 days a week. She does not have 247 care. She would benefit from physical therapy evaluation and social work evaluation. She did get agitated throughout the night and was given 1 dose of Benadryl to help her sleep. Patient signed out to Dr. Mason for further evaluation and monitoring. October 08, 2022 at 7:00 a.m., s/o from dr dsouza, patient awaiting for social work and a physical therapy evaluation and treatment. Determine if needs correction facility. Patient has received Ancef Lasix for leg redness and swelling. At this time clinically not cellulitis. 6 p.m.. Marlon: Sign out to Dr Dsouza Social work has seen patient, Giselle. Patient has been evaluated by PT OT and recommending sniff and long- term placement. At this time, [employer] this reviewing for approval. <Raimundolowell Espinoza, DO - Last Filed: 10/10/22 07:12> Lab Data Labs: Lab Results 10/07/22 10/07/22 10/07/22 Range/Units 17:38 17:38 17:38 WBC 8.2 (4.5-11.0) X10^3/uL RBC 4.49 (4.0-5.2) X10^6/uL Hgb 13.7 (12.0-16.0) g/dL Hct 40.1 (36-46) % MCV 89.3 (80-100) fL MCH 30.5 (26-34) PG MCHC 34.1 (30-36) % RDW 13.3 (11.6-14.8) % Plt Count 220 (150-400) X10^3/uL Neut % (Auto) 81.2 H (50-75) % Lymph % (Auto) 10.2 L (25-40) % [place] % (Auto) 7.8 (3-14) % Eos % (Auto) 0.4 L (2-4) % Baso % (Auto) 0.4 (0-2) % Neut # (Auto) 6600 (4099-1937) /uL Lymph # (Auto) 800 L (1035-2819) /uL [place] # (Auto) 600 (0-900) /uL Eos # (Auto) 0 (0-450) /uL Baso # (Auto) 0 (0-100) /uL Sodium 136 L (137-145) mmol/L Potassium 4.5 (3.4-5.1) mmol/L Chloride 99 (98-107) mmol/L Carbon Dioxide 34 H (22-32) mmol/L BUN 17 (7-17) mg/dL Creatinine 0.71 (0.52-1.04) mg/dL Estimated GFR > 60 (>60) mL/min BUN/Creatinine Ratio 23.9 H (6-22) Glucose 108 (80-110) mg/dL Lactate 1.4 (0.7-2.1) mmol/L Calcium 9.3 (8.4-10.2) mg/dL Total Bilirubin 0.6 (0.2-1.3) mg/dL AST 29 (14-36) IU/L ALT 26 (<35) IU/L Alkaline Phosphatase 111 (38-126) U/L Total Creatine Kinase (30-135) U/L Troponin I (0.01-0.034) ng/mL NT-Pro-B Natriuret Pep 149 (<450) pg/mL Total Protein 8.0 (6.3-8.2) g/dL Albumin 4.2 (3.5-5.0) g/dL Globulin 3.8 (1.7-4.1) g/dL Albumin/Globulin Ratio 1.1 (1.0-2.8) Procalcitonin < 0.03 (<0.5) ng/mL Urine Color Urine Appearance Urine pH (4.5-8.0) Ur Specific [place] (1.000-1.035) Urine Protein (Negative) Urine Glucose (UA) (Negative) g/dL Urine Ketones (NEGATIVE) Urine Occult Blood (Negative) Urine Nitrate (Negative) Urine Bilirubin (NEGATIVE) Urine Urobilinogen (0.2) E.U./dL Ur Leukocyte Esterase (NEGATIVE) Urine RBC (0-5/HPF) Urine WBC (0-5/HPF) Ur Squamous Epith Cells (0-5/HPF) Urine Bacteria (None) Ur Culture Indicated? 10/07/22 10/07/22 10/08/22 Range/Units 17:38 18:03 07:00 WBC 7.6 (4.5-11.0) X10^3/uL RBC 4.26 (4.0-5.2) X10^6/uL Hgb 13.0 (12.0-16.0) g/dL Hct 37.7 (36-46) % MCV 88.6 (80-100) fL MCH 30.5 (26-34) PG MCHC 34.4 (30-36) % RDW 13.2 (11.6-14.8) % Plt Count 210 (150-400) X10^3/uL Neut % (Auto) 80.2 H (50-75) % Lymph % (Auto) 10.9 L (25-40) % [place] % (Auto) 8.3 (3-14) % Eos % (Auto) 0.3 L (2-4) % Baso % (Auto) 0.3 (0-2) % Neut # (Auto) 6100 (7153-7792) /uL Lymph # (Auto) 800 L (8292-9937) /uL [place] # (Auto) 600 (0-900) /uL Eos # (Auto) 0 (0-450) /uL Baso # (Auto) 0 (0-100) /uL Sodium (137-145) mmol/L Potassium (3.4-5.1) mmol/L Chloride (98-107) mmol/L Carbon Dioxide (22-32) mmol/L BUN (7-17) mg/dL Creatinine (0.52-1.04) mg/dL Estimated GFR (>60) mL/min BUN/Creatinine Ratio (6-22) Glucose (80-110) mg/dL Lactate (0.7-2.1) mmol/L Calcium (8.4-10.2) mg/dL Total Bilirubin (0.2-1.3) mg/dL AST (14-36) IU/L ALT (<35) IU/L Alkaline Phosphatase (38-126) U/L Total Creatine Kinase 263 H (30-135) U/L Troponin I < 0.012 (0.01-0.034) ng/mL NT-Pro-B Natriuret Pep (<450) pg/mL Total Protein (6.3-8.2) g/dL Albumin (3.5-5.0) g/dL Globulin (1.7-4.1) g/dL Albumin/Globulin Ratio (1.0-2.8) Procalcitonin (<0.5) ng/mL Urine Color Yellow Urine Appearance Clear Urine pH 7.0 (4.5-8.0) Ur Specific [place] 1.015 (1.000-1.035) Urine Protein Negative (Negative) Urine Glucose (UA) Negative (Negative) g/dL Urine Ketones Negative (NEGATIVE) Urine Occult Blood Negative (Negative) Urine Nitrate Negative (Negative) Urine Bilirubin Negative (NEGATIVE) Urine Urobilinogen 1.0 (0.2) E.U./dL Ur Leukocyte Esterase Negative (NEGATIVE) Urine RBC None seen (0-5/HPF) Urine WBC None seen (0-5/HPF) Ur Squamous Epith Cells 0-1 /hpf (0-5/HPF) Urine Bacteria None seen (None) Ur Culture Indicated? Cult not indicated 10/08/22 10/08/22 10/08/22 Range/Units 07:00 20:26 20:26 WBC 7.2 (4.5-11.0) X10^3/uL RBC 4.22 (4.0-5.2) X10^6/uL Hgb 13.1 (12.0-16.0) g/dL Hct 37.4 (36-46) % MCV 88.7 (80-100) fL MCH 31.1 (26-34) PG MCHC 35.1 (30-36) % RDW 13.6 (11.6-14.8) % Plt Count 204 (150-400) X10^3/uL Neut % (Auto) 75.9 H (50-75) % Lymph % (Auto) 13.5 L (25-40) % [place] % (Auto) 9.7 (3-14) % Eos % (Auto) 0.6 L (2-4) % Baso % (Auto) 0.3 (0-2) % Neut # (Auto) 5500 (9429-2518) /uL Lymph # (Auto) 1000 L (7661-2593) /uL [place] # (Auto) 700 (0-900) /uL Eos # (Auto) 0 (0-450) /uL Baso # (Auto) 0 (0-100) /uL Sodium 136 L 135 L (137-145) mmol/L Potassium 3.7 3.6 (3.4-5.1) mmol/L Chloride 97 L 98 (98-107) mmol/L Carbon Dioxide 35 H 32 (22-32) mmol/L BUN 13 12 (7-17) mg/dL Creatinine 0.66 0.65 (0.52-1.04) mg/dL Estimated GFR > 60 > 60 (>60) mL/min BUN/Creatinine Ratio 19.7 18.5 (6-22) Glucose 116 H 113 H (80-110) mg/dL Lactate (0.7-2.1) mmol/L Calcium 8.8 8.7 (8.4-10.2) mg/dL Total Bilirubin 0.8 1.0 (0.2-1.3) mg/dL AST 29 32 (14-36) IU/L ALT 22 22 (<35) IU/L Alkaline Phosphatase 112 112 (38-126) U/L Total Creatine Kinase (30-135) U/L Troponin I (0.01-0.034) ng/mL NT-Pro-B Natriuret Pep (<450) pg/mL Total Protein 7.0 7.0 (6.3-8.2) g/dL Albumin 3.8 3.8 (3.5-5.0) g/dL Globulin 3.2 3.2 (1.7-4.1) g/dL Albumin/Globulin Ratio 1.2 1.2 (1.0-2.8) Procalcitonin (<0.5) ng/mL Urine Color Urine Appearance Urine pH (4.5-8.0) Ur Specific [place] (1.000-1.035) Urine Protein (Negative) Urine Glucose (UA) (Negative) g/dL Urine Ketones (NEGATIVE) Urine Occult Blood (Negative) Urine Nitrate (Negative) Urine Bilirubin (NEGATIVE) Urine Urobilinogen (0.2) E.U./dL Ur Leukocyte Esterase (NEGATIVE) Urine RBC (0-5/HPF) Urine WBC (0-5/HPF) Ur Squamous Epith Cells (0-5/HPF) Urine Bacteria (None) Ur Culture Indicated? MDM Narrative Medical decision making narrative: Patient 77-year-old female with them and presenting today with increased decline over the last couple of days. She is having increased swelling in her leg concern for possible cellulitis and increased falling. The erythema on her leg is significant. She is no fever no leukocytosis possibly from significant edema she has she does have some sores. She is given 1 dose of Ancef and blood cultures are pending. She has no UTI. Head CT has been reviewed and is negative. Electrolytes have been reviewed no significant abnormality no evidence of LUZ MARIA. She is given 1 dose of Lasix she urinated quite a bit. Chest x-ray is 0 year and BNP is negative no obvious congestive heart failure. At this time patient is really not meeting any sort of admission criteria however she has an acute change without an obvious cause. She is an unsafe. Family is unable to care for her. She does have caregivers caregivers but there only for a few hours daily 5 days a week. She does not have 247 care. She would benefit from physical therapy evaluation and social work evaluation. She did get agitated throughout the night and was given 1 dose of Benadryl to help her sleep. Patient signed out to Dr. Mason for further evaluation and monitoring. October 08, 2022 at 7:00 a.m., s/o from dr dsouza, patient awaiting for social work and a physical therapy evaluation and treatment. Determine if needs correction facility. Patient has received Ancef Lasix for leg redness and swelling. At this time clinically not cellulitis. 6 p.m.. Marlon: Sign out to Dr Dsouza Social work has seen patientGiselle. Patient has been evaluated by PT OT and recommending sniff and long- term placement. At this time, [employer] this reviewing for approval. 0710/09/22 (Alexis) Patient received in sign out from Dr. Escudero. I have reviewed the clinical course and performed an independent history and physical exam. 1500 -patient continues to be vastly departed from her baseline and at this time there is no obviously reversible diagnosis. We have been in constant contact with [employer] and they have sent over significant paperwork with authorization for correction facilities. I have discussed this with on-call provider for Dr. Montague (Shala) who will accept patient on his service and is going to see her in the emergency department <Raimundo DO Alexis - Last Filed: 10/10/22 07:12> Critical Care Time Critical Care Time: Yes Total Critical Care Time: 45 Attestation: The high probability of a clinically significant, sudden or life threatening deterioration of the [CV/MSK] system(s) required my full and direct attention, intervention and personal management. The aggregate critical care time was [45] minutes. This time is in addition to time spent performing reported procedures but includes the following: [x] Data Review and interpretation [x Patient assessment and monitoring of vital signs [x] Documentation [x] Medication orders and management Discharge Plan Departure Patient Disposition: Admitted as Observation Clinical Impression: Adult failure to thrive, Weakness Admit Date/Time: 10/09/22 17:45 Admit Provider: Jose Last
[2022-10-07 18:19] LABS: Procalcitonin < 0.03 ng/mL (<0.5)
--- NOTE | 2022-10-07 18:24 | DI.CT.S_ITS ---
PROCEDURE: CT HEAD/BRAIN WO CON INDICATIONS: increasing confusion and falls TECHNIQUE: Noncontrast 4.5 mm thick angled axial sections acquired from the foramen magnum to the vertex, with coronal and sagittal reformats. For radiation dose reduction, the following was used: automated exposure control, adjustment of mA and/or kV according to patient size. COMPARISON: [facility], CT, CT CERVICAL SPINE WO CON, 08/10/2018, 16:03. [facility], MR, MR HEAD/BRAIN WO/W CON, 12/31/2020, 12:28. [facility], CT, CT HEAD/BRAIN WO CON, 08/10/2018, 16:03. FINDINGS: Image quality: This evaluation is limited, secondary to the patient's inability to fully cooperate with the examination. This examination is limited by involuntary motion artifact. CSF spaces: Basal cisterns are patent. No extra-axial fluid collections. The ventricles are symmetric in size and shape. Brain: No intracranial bleeds or masses. There is cerebral volume loss for age, with resultant ventricular and sulcal prominence. There are periventricular and deep white matter chronic small vessel ischemic changes. There is intracranial internal carotid artery atherosclerosis. Skull and face: Calvarium and visualized facial bones appear intact, without suspicious lesions. 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 Sinuses: Visualized sinuses and mastoids are clear. IMPRESSION: Limited study demonstrating no constance acute intracranial hemorrhage or other significant intracranial abnormality. Dictated by: Monty Torres M.D. on 10/07/2022 at 17:57 Approved by: Monty Torres M.D. on 10/07/2022 at 18:00
--- NOTE | 2022-10-07 18:24 | DI.RAD.S_ITS ---
PROCEDURE: XR CHEST 1V INDICATIONS: weakness confusion TECHNIQUE: One view of the chest was acquired. COMPARISON: [facility], CR, XR CHEST 1V, 06/18/2020, 11:20. FINDINGS: Surgical changes and devices: None. Lungs and pleura: Increased pulmonary vascularity is present. Mediastinum: Mediastinal contours appear normal. Heart size is prominent. Bones and chest wall: No suspicious bony lesions. Overlying soft tissues appear unremarkable. Prominent scoliotic curvature is present. IMPRESSION: Mild appearance of increased vascularity suggestive of edema. Dictated by: Sindy Voss M.D. on 10/07/2022 at 19:01 Approved by: Sindy Voss M.D. on 10/07/2022 at 19:01
[2022-10-07 18:32] LABS: Creatine Kinase 263 U/L (30-135)
[2022-10-07 18:37] LABS: Appearance Urine UA CLEAR; Bilirubin Urine UA NEGATIVE (NEGATIVE); Color Urine UA YELLOW; Glucose Urine UA NEGATIVE (Negative); Ketones Urine UA NEGATIVE (NEGATIVE); Leukocyte Esterase Urine UA NEGATIVE (NEGATIVE); Nitrite Urine UA NEGATIVE (Negative); Occult Blood Urine UA NEGATIVE (Negative); Protein Urine UA NEGATIVE (Negative); Specific Gravity Urine UA 1.015 (1.000-1.035)
[2022-10-07 18:44] LABS: Bacteria Urine None Seen; Culture Indicated Urine Cult Not Indicated; RBC Urine None Seen (0-5/HPF); Squamous Epithelial Cell Urine 0-1 /HPF (0-5/HPF); WBC Urine None Seen (0-5/HPF)
[2022-10-07 18:45] LABS: Troponin I < 0.012 ng/mL (0.01-0.034)
[2022-10-07] MEDS: FUROSEMIDE 40 MG/4 ML VIAL 20 MG IV (19:22)
[2022-10-07] MEDS: CEFAZOLIN VIAL 1 GM in SODIUM CHLORIDE 0.9% 100 ML IV (19:57)
[2022-10-08] VITALS (32 sets, daily range): BP systolic 115–184; BP diastolic 63–143; PULSE 66–125; RESP 18–32; TEMP 37.1–37.2; O2SAT 92–97
[2022-10-08] MEDS: diphenhydrAMINE 50 MG/ML VIAL 25 MG IV (03:17)
[2022-10-08 07:12] LABS: Add Manual Diff / Slide Review NO; Basophils Absolute Auto 0 /uL (0-100); Basophils Percent Auto 0.3 % (0-2); Eosinophils Absolute Auto 0 /uL (0-450); Eosinophils Percent Auto 0.3 % (2-4); Hematocrit 37.7 % (36-46); Lymphocytes Absolute Auto 800 /uL (1100-4500); Lymphocytes Percent Auto 10.9 % (25-40); Mean Corpuscular HGB Conc 34.4 % (30-36); Mean Corpuscular Hemoglobin 30.5 PG (26-34); Mean Corpuscular Volume 88.6 fL (80-100); Monocytes Absolute Auto 600 /uL (0-900); Monocytes Percent Auto 8.3 % (3-14); Neutrophils Absolute Auto 6100 /uL (1500-7000); Neutrophils Percent Auto 80.2 % (50-75); Platelet Count 210 X10^3/uL (150-400); Red Blood Cell Count 4.26 X10^6/uL (4.0-5.2); Red Cell Distribution Width 13.2 % (11.6-14.8); White Blood Cell Count 7.6 X10^3/uL (4.5-11.0)
[2022-10-08 07:23] LABS: Alanine Aminotransferase 22 IU/L (<35); Albumin 3.8 g/dL (3.5-5.0); Albumin Globulin Ratio 1.2 (1.0-2.8); Alkaline Phosphatase 112 U/L (38-126); Aspartate Aminotransferase 29 IU/L (14-36); BUN Creatinine Ratio 19.7 (6-22); Bilirubin Total 0.8 mg/dL (0.2-1.3); Blood Urea Nitrogen 13 mg/dL (7-17); Calcium 8.8 mg/dL (8.4-10.2); Carbon Dioxide 35 mmol/L (22-32); Chloride 97 mmol/L (98-107); Estimated Glomerular Filt Rate > 60 mL/min (>60); Globulin 3.2 g/dL (1.7-4.1); Glucose 116 mg/dL (80-110); HEMOLYSIS < 15 (0-50); Potassium 3.7 mmol/L (3.4-5.1); Sodium 136 mmol/L (137-145)
--- NOTE | 2022-10-08 13:17 | PC.NURSE ---
HOME SUPPORT WORKER Note - Patient needed two person assist to be able to sit on the edge of the bed and stand. patient required physical guidance of her hands and legs to be able to stand. Patient was unable to take any steps and was unable to respond to any commands, as well as appropriately respond to anything she was told.
--- NOTE | 2022-10-08 13:41 | CM.SWNOTE ---
Addendum entered by Giselle Kramer 10/08/22 16:45: Per UR RN, patient does not meet admission criteria right now, Kati RN states that if symptoms worsen to request new UR evaluation. Patient has been boarding in ED for the last 24 hours. PT evaluated patient and recommends SNF rehab. OT evaluated patient and recommends termite treater helper memory care as patient is dependent for ADLs at baseline. APPRAISAL SPECIALIST called [facility] regarding referral for SNF rehab and August is reviewing. APPRAISAL SPECIALIST called [facility] for insurance auth (Ph. # [phone]), APPRAISAL SPECIALIST to fax OT, PT and clinicals to [facility] ( ) when evaluations are documented this evening. This APPRAISAL SPECIALIST is not working tomorrow, APPRAISAL SPECIALIST to email hand off to ED Director, battery charger tester working tomorrow and care management team for further care planning. Giselle Kramer, [facility] Original Note: ED APPRAISAL SPECIALIST Note Patient is 77 y/o female who presents to ED with spouse due to concern for difficulty with ambulation, weeping sores on BLE and increased weakness. Patient has Dementia at baseline but can typically ambulate with FWW and minimal assistance. Patient's PCP is Dr. Montague, patient has [facility] insurance. Patient has hx of Alzheimer's Dementia, Peripheral Neuropathy, HTN and gait instability. APPRAISAL SPECIALIST enters room to meet with patient and spouse. Patient is not A/O but FORESTRY FOREMAN is able to assist patient with feeding her lunch. Spouse endorses that they reside in [place] and patient has caregiver 5 days a week from 1pm-6pm Sundays through . It is reported that patient can typically ambulate with walker but yesterday was displaying weakness, unsteady and unable to ambulate. Spouse states that patient receives assistance with all ADLs and needs are managed by caregiver and spouse. Spouse states he has been utilizing [employer] for patient and that is how he identified caregiver for patient. Spouse states he has an upcoming assessment on 10/13 with a instructor flying to see if [facility] will approve more caregiver hours and possible coverage, it is reported that spouse is paying out of pocket for caregiver. Initially, prior to ambulation trial in ED. APPRAISAL SPECIALIST discusses HH with spouse, who endorses hx with [facility] and interest in new referral with [facility] for PT and OT. Spouse endorses interest in DME for patient such as bedside commode, hospital bed and alarms. APPRAISAL SPECIALIST provides spouse with list of DME resources. ED provider Dr. Mason signs F2F and APPRAISAL SPECIALIST submits HH order. APPRAISAL SPECIALIST awaits submitting HH referral and contacting [facility] until after ambulation trial. It is reported by CNAs that patient fails 2 person assist ambulation trial. APPRAISAL SPECIALIST re-enters room to meet with spouse, who indicates concern with patient discharging to home. APPRAISAL SPECIALIST and spouse discuss the option of increasing caregiver hours vs. SNF rehab with [employer]. APPRAISAL SPECIALIST states that in order to get [facility], patient will need PT/OT evaluation in hospital. APPRAISAL SPECIALIST states that if he is seeking SNF rehab for patient, patient is likely to stay in ED. APPRAISAL SPECIALIST encourages spouse to call around to identify if patient can get increase in caregiver hours. Spouse is not primarily seeking SNF rehab for patient but would move forward with this option given his concern of patient's ability to manage patient needs at home. APPRAISAL SPECIALIST reviews Guidelines for Prevention of Management of Social Admission Guidelines and calls UR IAM Parikh requesting her to review patient. PT/OT consults have been ordered for needed evaluations for [facility] [employer]. APPRAISAL SPECIALIST start SNF rehab search. Plan: Pending PT/OT evals, SNF rehab with le [facility] auth vs. increased caregiver hours with HH referral. JASON Regalado
--- NOTE | 2022-10-08 14:50 | PC.NURSE ---
Spoke to UR personnel re: pt Faisal . Pt failed ambulation trial. UR states we are awaiting 48HRnmultidisciplinary team meeting to plan d/c. Awaiting PT/OT evals. ED CLOTHING ROOM SUPERVISOR aware.
--- NOTE | 2022-10-08 16:15 | PT.IIE ---
Surgical History (Last Reviewed 06/18/20 @ 11:20 by Lucie Nowak DO) History of breast biopsy (1992) History of colonoscopy (07/12/14) History of laparoscopy (04/2009) History of left inguinal hernia repair (1991) Medical History (Last Reviewed 06/18/20 @ 11:20 by Lucie Nowak DO) Abnormal Pap smear of cervix Cataract (~2011) Chicken pox Dextroscoliosis Diverticulosis (07/12/14) Fibrocystic breast disease (1992) 4 para 4 Hemorrhoids Hyperlipidemia Measles Mumps Peptic ulcer disease (2004) Scoliosis (~195) Physical Therapy Inpatient Evaluation/Re-Eval M1 PT/OT-IP Prior Functional Status Start: 10/08/22 16:02 Freq: Status: Active Protocol: Document 10/08/22 15:47 DCW (Rec: 10/08/22 16:14 DCW [id number]) Medical Review Prior Functional Status Medical History Reviewed Yes Social History Household Members spouse Number of Floors (Floors) One Floor Additional Social History Comment Pt poor historian, difficult to determine PLOF. Per nursing , pt's and caregiver report she had been ambulating around their house with some assistance previously. M2 PT-IP Current Condition Start: 10/08/22 16:02 Freq: Status: Active Protocol: Document 10/08/22 15:47 DCW (Rec: 10/08/22 16:14 DCW [id number]) Physical Therapy Current Condition Current Condition Evaluation Date 10/08/22 Treatment Diagnosis Weakness, difficulty ambulating Onset Date Past few days M3 PT-IP Subjective Start: 10/08/22 16:02 Freq: Status: Active Protocol: Document 10/08/22 15:47 DCW (Rec: 10/08/22 16:14 DC [id number]) Subjective Physical Therapy Visit Type Type Initial Evaluation Visit Start Time 15:47 Visit Stop Time 16:00 Total Visit Minutes 13 Notes Recent decline in function, per and caregiver, brought to ED 10/07/22 following a fall in the AM. Difficulty ambulating at home, has needed the w/c recently, which is unusual. Number of NEONATAL CRITICAL CARE NURSE Visits 0 Physical Therapy Visit Comments Patient Comments Poor historian, had difficulty appropriately responding to questions Therapy Pain Assessment Pain Present Pain Present Unable to Respond M4 PT-IP Mobility and Gait Start: 10/08/22 16:02 Freq: Status: Active Protocol: Document 10/08/22 15:47 DCW (Rec: 10/08/22 16:14 [facility] [id number]) PT-Bed Mobility Assessment Supine to Sit Supine to Sit Maximum Assistance,2 Person Assistance,Head of Bed Elevated Sit to Supine Sit to Supine Maximum Assistance,2 Person Assistance,Head of Bed Elevated PT-Balance Assessment Sitting Balance and Reactions Static Sitting Balance Ability Poor M5 PT-IP Objective Assessments Start: 10/08/22 16:02 Freq: Status: Active Protocol: Document 10/08/22 15:47 DCW (Rec: 10/08/22 16:14 [facility] [id number]) Orientation Orientation/Cognition Level of Alertness Confusional State Orientation Name Language Function Ability Word Finding Difficulties Safety Awareness Decreased Safety Awareness Memory Description Short Term Impaired,Halfway Impaired Strength Lower Extremity Strength Assessment Bilaterally Impaired Comments Strength Comments Pt had difficulty responding to instructions to perform any LE movement, difficult to assess strength M7 PT-IP Assessment and Plan Start: 10/08/22 16:02 Freq: Status: Active Protocol: Document 10/08/22 15:47 DCW (Rec: 10/08/22 16:14 [facility] [id number]) PT Summary Assessment and Plan Potential Rehabilitation Potential Poor Status of Condition at Evaluation Unstable Summary Impairments ROM,Strength,Balance,Cognition ,Bed Mobility,Transfers,Gait, Activity Tolerance Assessment Summary Pt required max ax2 with all bed mobility today, unable to maintain sitting balance EOB. Due to cognitive deficits, pt required repeated instruction for any mobility, and still had difficultly following verbal instructions. Significant decline in function from prior level, per report from . Pt unsafe with any mobility at this time, unlikely to do well with discharge home. Pt would greatly benefit from discharge to SNF for further rehabilitation. Goals Bed Mobility Goal Moderate Assistance Transfer Goal Moderate Assistance Frequency of Treatment Frequency Of Treatment Once a Day Treatment Plan Physical Therapy Treatment Plan Bed Mobility Training,Transfer Training,Therapeutic Exercise Recommendations To Nursing Amount of Assist Needed 2 Person Assist,Total Assistance Discharge Recommendations PT Discharge Recommendations SNF Rehab Transportation Needs at Discharge Wheelchair/Cabulance
--- NOTE | 2022-10-08 16:36 | OT.IP.EVAL ---
Past Medical History (Last Reviewed 06/18/20 @ 11:20 by Lucie Nowak DO) Abnormal Pap smear of cervix Cataract (~2011) Chicken pox Dextroscoliosis Diverticulosis (07/12/14) Fibrocystic breast disease (1992) 4 para 4 Hemorrhoids Hyperlipidemia Measles Mumps Peptic ulcer disease (2004) Scoliosis (~195) Surgical History (Last Reviewed 06/18/20 @ 11:20 by Lucie Nowak DO) History of breast biopsy (1992) History of colonoscopy (07/12/14) History of laparoscopy (04/2009) History of left inguinal hernia repair (1991) Occupational Therapy Inpatient Evaluation/Re-Eval M1 PT/OT-IP Prior Functional Status Start: 10/08/22 16:02 Freq: Status: Active Protocol: Document 10/08/22 16:49 CGR (Rec: 10/08/22 17:07 CGR [id number]) Medical Review Prior Functional Status Medical History Reviewed Yes Communication Pt is minimally communicative Mobility and Gait Per chart, pt was min a with a walker for all mobility. Activities of Daily Living and IADL's Per chart, pt is dependent in ADLs. Social History Household Members spouse Number of Floors (Floors) One Floor Additional Social History Comment Pt poor historian, difficult to determine PLOF. Per nursing , pt's and caregiver report she had been ambulating around their house with some assistance previously. No caregivers present during Ot eval. M2 OT-IP Current Condition Start: 10/08/22 16:48 Freq: Status: Active Protocol: Document 10/08/22 16:49 CGR (Rec: 10/08/22 17:07 CGR [id number]) Occupational Therapy Current Condition Current Condition Evaluation Date 10/08/22 Treatment Diagnosis Fall and generalized weakness, possible cellulitis. Diagnosis Onset Date 10/07/22 M3 OT- IP Subjective and Pain Start: 10/08/22 16:48 Freq: Status: Active Protocol: Document 10/08/22 16:49 CGR (Rec: 10/08/22 17:07 CGR [id number]) OT- Subjective Occupational Therapy Visit Type Type Initial Evaluation Visit Start Time 16:21 Visit Stop Time 16:36 Total Visit Minutes 15 Notes Per nursing, pt is more awake when OT and nursing entered room at start of session. OT Pain Assessment Pain When Pain Assessed At Rest Pain Present Pain Present Unable to Respond FLACC Pain Scale Face No particular expression M4 OT- IP ADL's Start: 10/08/22 16:48 Freq: Status: Active Protocol: Document 10/08/22 16:49 CGR (Rec: 10/08/22 17:07 CGR [id number]) OT [id number] Comments OT Self-Feeding Comments not meal time OT ADL-Grooming General Evaluation Grooming Ability Total Assistance Areas Needing Assistance Face Washing Comments OT Grooming Comments Pt is unable to assist with washing face OT ADL-Oral Care General Eval Oral Care Ability Total Assistance Comments Oral Care Comments Pt initially states that she will brush her teeth. Sitting up EOB attempted to give pt the tooth brush. Pt was unable to initiate grabbing the brush. This typewriter mechanic then attempted to brush pts teeth but pt quickly pulled away and indicated that she did not want to have her teeth brushed . OT ADL-Dressing General Eval Lower Body Dressing Ability Total Assistance Areas Needing Assistance Socks OT ADL-Toileting Comments OT Toileting Comments not performed OT ADL-Bathing Comments OT Bathing Comments not performed M5 OT- IP IADL's Start: 10/08/22 16:48 Freq: Status: Active Protocol: Document 10/08/22 16:49 CGR (Rec: 10/08/22 17:07 CGR [id number]) OT-Instrumental Activities of Daily Living Deficits IADL Deficits Identified Deficits Home Safety Awareness Awareness of Need for Assistance at Home Decreased Awareness Ability to Problem Solve Emergency Unable to Problem Solve Situations Medication Management Medication Management Caregiver Administers Money Management Money Management Caregiver Provides Assistance Meal Preparation Meal Preparation Caregiver Provides Assist Organic Preparation Analyst Organic Preparation Analyst Caregiver Provides Assist Driving Driving Comments Pt does not drive at baseline. M6 OT- IP Functional Cognition Start: 10/08/22 16:48 Freq: Status: Active Protocol: Document 10/08/22 16:49 CGR (Rec: 10/08/22 17:07 CGR [id number]) Cognitive Factors Limiting Selfcare Function Cognitive Ability Level of Alertness Alert,Confusional State,Drowsy Cognitive Comments Cognitive Assessment Comments Pt is unable to follow commands during eval. OT- Vision and Hearing OT- Hearing Assessment OT- Hearing Assessment WFL OT- Vision Assessment Visual Acuity WFL Visual Attentiveness WFL Occular Pursuits WFL Vision Assessment Comments Pt is not able to follow commands for occular pursuits but is able to track this typewriter mechanic around the room. M7 OT- IP Mobility and Balance Start: 10/08/22 16:48 Freq: Status: Active Protocol: Document 10/08/22 16:49 CGR (Rec: 10/08/22 17:07 CGR [id number]) OT- Bed Mobility Assessment Supine to Sit Supine to Sit Assist Total Assistance,1 Person Assistance Sit to Supine Sit to Supine Assist Total Assistance,1 Person Assistance Scooting Scooting to Edge of Bed Total Assistance,1 Person Assistance OT-Transfer Assessment Comments Mobility Comments unable to perform OT- Gait Assessment Comments Gait Ability Comments unable to perform OT- Balance Assessment Sitting Balance and Reactions Static Sitting Balance Ability Fair Dynamic Sitting Balance Ability Poor M8 OT- IP Objective Assessments Start: 10/08/22 16:48 Freq: Status: Active Protocol: Document 10/08/22 16:49 CGR (Rec: 10/08/22 17:07 CGR [id number]) OT Strength Upper Extremity Strength Assessment Within Functional Limits Comments Strength Comments Pt unable to follow commands but resists movement at times with 4+/5 to BUE. OT- Coordination Assessment Comments Coordination Comments pt is unable to perform testing. OT-Muscle Tone Assessment Muscle Tone WNL Yes OT Sensation Assessment Edema Edema Present Edema Comments BLE edema M9 OT- IP Assessment and Plan Start: 10/08/22 16:48 Freq: Status: Active Protocol: Document 10/08/22 16:49 CGR (Rec: 10/08/22 17:07 CGR [id number]) OT Summary Assessment and Plan Potential Rehabilitation Potential Poor Analytic Complexity at Evaluation Moderate Summary OT Impairments Balance,Coordination, Functional Cognition, Functional Mobility,Self- Feeding,Grooming,Dressing, Toileting,Bathing,Toilet Transfers,Shower Transfers, Activity Tolerance Progress Towards Goals Slow Progress due to Cognition Assessment Summary Pt presents as a high complexity evaluation s/p admit for fall and generalized weakness. Pt appears to have a decline in status for functional mobility but pt appears to be at her baseline for ADLs which is dependent. No further OT needs. Recommend d/c home with increased caregivers vs co pilot care vs respite stay. Frequency of Treatment Frequency Of Treatment Discharge Discharge Recommendations OT Discharge Recommendations Home with 24/7 Assist Available,[facility] Transportation Needs at Discharge Wheelchair/Cabulance
--- NOTE | 2022-10-08 17:16 | PC.NURSE ---
3+ pitting edema on bilateral lower extremities. Lower extremities warm and tender to touch. No drainage or weeping at this time.
--- NOTE | 2022-10-08 17:22 | PC.NURSE ---
CHANCERY CLERK Note - Patient had a bowel movement in her brief with a PURWIC in place. Cleaned patient, changed brief, provided new linens
--- NOTE | 2022-10-08 18:27 | CM.SWNOTE ---
ED BOTTLE BLOWER Note BOTTLE BLOWER calls patient's spouse Kike (Ph. # [phone]) He states that he has not contacted [facility] or looked into more caregiver hours yet and is on board with SNF rehab for patient at this time. Kike endorses preference for [place] far [place] as [place] and no farther than [place] for SNF rehab facilities. Kike denies preference for [facility]. Kike states he will visit spouse tomorrow morning. BOTTLE BLOWER faxes OT, PT and all clinicals to [facility] for insurance auth. SNF rehab search for all facilities that accept [facility]: BOTTLE BLOWER calls back [facility] and leaves VM requesting return call to ED. Lovely at [facility] to review OT/PT evals and patient chart on EMR. BOTTLE BLOWER calls [facility] and leaves VM requesting return call to ED, BOTTLE BLOWER faxes SNF referral for review. BOTTLE BLOWER calls [facility] and leaves VM requesting return call to ED, BOTTLE BLOWER faxes SNF referral for review. BOTTLE BLOWER calls [facility] and leaves VM requesting return call to ED, BOTTLE BLOWER faxes SNF referral for review. BOTTLE BLOWER calls [facility], no answer. BOTTLE BLOWER calls [facility] and and leaves VM requesting return call to ED, BOTTLE BLOWER faxes SNF referral for review. HH referral on hold while seeking SNF rehab placement. Plan: Pending further PT evaluation, continue to seek SNF rehab placement for patient. Plan B: patient's spouse to increase caregiver hours with new [facility] referral in place. Giselle Kramer, BRAKE REPAIRER
--- NOTE | 2022-10-08 18:36 | PC.NURSE ---
Pt was unable to feed self during dinner.
--- NOTE | 2022-10-08 18:40 | PC.NURSE ---
Brief changed and pure wick placed. 250mL out of clear radha urine.
[2022-10-08 20:35] LABS: Add Manual Diff / Slide Review NO; Basophils Absolute Auto 0 /uL (0-100); Basophils Percent Auto 0.3 % (0-2); Eosinophils Absolute Auto 0 /uL (0-450); Eosinophils Percent Auto 0.6 % (2-4); Hematocrit 37.4 % (36-46); Hemoglobin 13.1 g/dL (12.0-16.0); Lymphocytes Absolute Auto 1000 /uL (1100-4500); Lymphocytes Percent Auto 13.5 % (25-40); Mean Corpuscular HGB Conc 35.1 % (30-36); Mean Corpuscular Hemoglobin 31.1 PG (26-34); Mean Corpuscular Volume 88.7 fL (80-100); Monocytes Absolute Auto 700 /uL (0-900); Monocytes Percent Auto 9.7 % (3-14); Neutrophils Absolute Auto 5500 /uL (1500-7000); Neutrophils Percent Auto 75.9 % (50-75); Platelet Count 204 X10^3/uL (150-400); Red Blood Cell Count 4.22 X10^6/uL (4.0-5.2); Red Cell Distribution Width 13.6 % (11.6-14.8); White Blood Cell Count 7.2 X10^3/uL (4.5-11.0)
[2022-10-08 20:49] LABS: Alanine Aminotransferase 22 IU/L (<35); Albumin 3.8 g/dL (3.5-5.0); Albumin Globulin Ratio 1.2 (1.0-2.8); Alkaline Phosphatase 112 U/L (38-126); Aspartate Aminotransferase 32 IU/L (14-36); BUN Creatinine Ratio 18.5 (6-22); Blood Urea Nitrogen 12 mg/dL (7-17); Calcium 8.7 mg/dL (8.4-10.2); Carbon Dioxide 32 mmol/L (22-32); Chloride 98 mmol/L (98-107); Estimated Glomerular Filt Rate > 60 mL/min (>60); Globulin 3.2 g/dL (1.7-4.1); Glucose 113 mg/dL (80-110); HEMOLYSIS < 15 (0-50); Potassium 3.6 mmol/L (3.4-5.1); Sodium 135 mmol/L (137-145)
--- NOTE | 2022-10-08 22:27 | PC.NURSE ---
Hand fed patient vanilla pudding and jello. Pt unable to hold spoon effectively due to tremors.
[2022-10-09] VITALS (10 sets, daily range): BP systolic 136–162; BP diastolic 57–103; PULSE 32–100; RESP 18–22; TEMP 36.6–37.4; O2SAT 88–98; BMI 33.0
[2022-10-09] MEDS: hydroCHLOROthiazide 25 MG TABLET PO (08:09)
[2022-10-09] MEDS: MEMANTINE HCL 5 MG TABLET 10 MG PO ×2 (08:10→20:49)
--- NOTE | 2022-10-09 08:14 | PC.NURSE ---
Addendum entered by Pamela Romo CNA 10/09/22 08:21: Due to pt's mentation, very resistant to thorough cleaning and frequent reorientation provided to pt. Original Note: Pt required extensive incontinent/beck care and partial linen change prior to breakfast. Pure wick saturated in stool and pt brief was saturated with urine. Pt had large amounts of crusty\pasty bm in brief. Pt cleaned with beck wipes, linens changed and new pure wick placed.
[2022-10-09] MEDS: ATORVASTATIN 20 MG TABLET PO (09:08)
--- NOTE | 2022-10-09 09:15 | PC.NURSE ---
Spoke with Jackie Ndiaye from [facility]. Another visit from PT is needed today for [facility] to evaluate patient for placement in another facility. PT called this am. chart notes faxed to [phone]
--- NOTE | 2022-10-09 09:19 | PC.NURSE ---
PICKER / PACKER note: took in pt. breakfast tray, offered meal and to assist. pt. agreed and accepted 3 spoonfuls of english yogurt. Refused any other breakfast, asked for her . Lowered he HOB slightly so pt. could rest comfortably, and notifed I would ask the RN to call pt. on her behalf. Left the call light within reach and encouraged pt. to use if needed. RN notified.
--- NOTE | 2022-10-09 09:35 | PT.IPTN ---
Physical Therapy Treatment Note M2 PT-IP Current Condition Start: 10/08/22 16:02 Freq: Status: Active Protocol: Document 10/08/22 15:47 DCW (Rec: 10/08/22 16:14 DCW [id number]) Physical Therapy Current Condition Current Condition Evaluation Date 10/08/22 Treatment Diagnosis Weakness, difficulty ambulating Onset Date Past few days M3 PT-IP Subjective Start: 10/08/22 16:02 Freq: Status: Active Protocol: Document 10/09/22 10:21 TS (Rec: 10/09/22 10:39 TS [id number]) Subjective Physical Therapy Visit Type Type Treatment Note Visit Start Time 09:35 Visit Stop Time 09:51 Total Visit Minutes 16 Physical Therapy Visit Comments Patient Comments Pt is confused and having difficulty answering questions , was agreeable to try and sit EOB. M4 PT-IP Mobility and Gait Start: 10/08/22 16:02 Freq: Status: Active Protocol: Document 10/09/22 10:21 TS (Rec: 10/09/22 10:39 TS [id number]) PT-Bed Mobility Assessment Supine to Sit Supine to Sit Maximum Assistance,1 Person Assistance,Head of Bed Elevated Sit to Supine Sit to Supine Maximum Assistance,1 Person Assistance,Head of Bed Elevated PT-Transfer Assessment Comments Mobility Comments Pt found resting in bed, agreeable to try and sit EOB. Pt was going back and forth is she wanted to sit up or not, attempted to sit EOB multiple times, pt was non-compliant. On one attempt pt did follow cues for pushing up onto hands for uprighting trunk with MaxA x1 for a brief moment. Attempted to get pt to move LEs over to EOB, pt was very rigid and resistant to moving her legs. Pt was left back in supine in bed, nursing notified. PT-Balance Assessment Sitting Balance and Reactions Static Sitting Balance Ability Poor M5 PT-IP Objective Assessments Start: 10/08/22 16:02 Freq: Status: Active Protocol: Document 10/08/22 15:47 DCW (Rec: 10/08/22 16:14 DCW [id number]) Orientation Orientation/Cognition Level of Alertness Confusional State Orientation Name Language Function Ability Word Finding Difficulties Safety Awareness Decreased Safety Awareness Memory Description Short Term Impaired,Mcc Impaired Strength Lower Extremity Strength Assessment Bilaterally Impaired Comments Strength Comments Pt had difficulty responding to instructions to perform any LE movement, difficult to assess strength M7 PT-IP Assessment and Plan Start: 10/08/22 16:02 Freq: Status: Active Protocol: Document 10/09/22 10:21 TS (Rec: 10/09/22 10:39 TS [id number]) PT Summary Assessment and Plan Potential Rehabilitation Potential Poor Summary Impairments ROM,Strength,Balance,Cognition ,Bed Mobility,Transfers,Gait, Activity Tolerance Progress Towards Goals Slow Progress due to Medical Issues Assessment Summary Attempted to have pt sit EOB multiple times, pt was going back and forth on if she wanted to or not. On one attempt she did follow cues to come up onto hands for a brief moment but quickly went back to supine. Attempted to have pt move LEs to EOB, pt would follow cues briefly then went back to original position. Pt is confused, becomes distracted by objects/ shadows in room and follows single step instructions poorly. She becomes agitated when asked if she would like to sit up and can not decide. PT at this time is recommending Home 24/7 assist with HHPT vs SNF. Discussed with Physical therapist and patient most likely not appropriate for SNF and feels she would do better in her home environment with increased assistance and HHPT. Goals Bed Mobility Goal Moderate Assistance Transfer Goal Moderate Assistance Frequency of Treatment Frequency Of Treatment Once a Day Treatment Plan Physical Therapy Treatment Plan Bed Mobility Training,Transfer Training,Therapeutic Exercise Recommendations To Nursing Amount of Assist Needed 2 Person Assist,Total Assistance Discharge Recommendations PT Discharge Recommendations Home with 24/7 Assist Available,Home Health,Home vs SNF Transportation Needs at Discharge Wheelchair/Cabulance
--- NOTE | 2022-10-09 10:35 | PC.NURSE ---
New pure wick placed and pericare provided. Mental status remains unchanged.
--- NOTE | 2022-10-09 16:33 | PC.NURSE ---
SPOOL WINDER note: spoke with Jackie Ndiaye from [employer] and the rep provided this SPOOL WINDER with a phone number to request updates on pt. placement which [facility] is working on currently. Jackie notified this solar sales rep that when asking for updates to say ask for the person covering [facility], the phone number is [phone], available [phone]. Called at 16:15 and left a message as no one answered. This SPOOL WINDER then called [facility] auth number to ask for a copy of the authorization that was approved for this pt. spoke with Monique rowland rep for [facility] and the rep stated they would be faxing the auth. Fax incoming @ 16:40. will put copy in pt. chart.
--- NOTE | 2022-10-09 18:42 | PM.HP.1 ---
History of Present Illness History of Present Illness Date Patient Seen: 10/09/22 Time Patient Seen: 18:42 Date of Onset of Symptoms: 09/09/22 Chief complaint: Weakness,trouble walking,cellulitis Narrative: Patient is a 77-year-old patient of Dr. Montague's whom I am meeting today who has been in the emergency room now for 48 hours. Has been a progressive weakness and failure to thrive issue. Going on over the last maybe as much as a month. There has been no definitive fevers chills cough shortness of breath urinary changes bowel changes patient is incontinent of both. She is been progressively getting weak. To the point where she can get out of a chair. Mental status continues to get worse. To where she needs cues to do almost everything. She is doing no active ADLs by herself. She occasionally notes were is. But most the time she does not. Patient has been seen by Neurology. Had been tried on multiple medications and is currently on memantine. is not sure seeing any change. Really she is been progressively getting worse over the last 6 months to a year. Was diagnosed in 2021. Patient is quiet throughout does try to answer questions but is on nonsensical. Patient basically at this point is not able to care for at home. Apparently secondary social studies teacher been markedly involved with physical therapy and attempt to get her to some location but it has been unable to do that. With no other changes. is not sure what her desires would be knows she wants to be at home. Wondering about possible long-term treatment. And goals. Apparently peripheral or dream was treated with some Lasix and she seemed to do better. [facility] Medical History (Updated 10/09/22 @ 17:45 by Raimundo Espinoza DO) Abnormal Pap smear of cervix Cataract (~2011) Chicken pox Dextroscoliosis Diverticulosis (07/12/14) Fibrocystic breast disease (1992) 4 para 4 Hemorrhoids Hyperlipidemia Measles Mumps Peptic ulcer disease (2004) Scoliosis (~1956) Surgical History History of breast biopsy (1992) History of colonoscopy (07/12/14) History of laparoscopy (04/2009) History of left inguinal hernia repair (1991) Family History Brother Age: 72 Cancer Sister Age: 81 Hypertension High cholesterol Brother No problems noted. Brother No problems noted. Brother ALS (amyotrophic lateral sclerosis) Father CAD (coronary artery disease) S/P CABG (coronary artery bypass graft) Arthritis Grandmother No problems noted. Mother Arthritis Hyperlipidemia Hypertension Grandfather No problems noted. Grandmother No problems noted. Sister No problems noted. Other Diabetes mellitus Social History marital status: number of children: 2 household members: spouse lives independently: Yes caregiver/support person: No housing: house Smoking Status: Never smoker second hand exposure: No alcohol intake: current (Once in a great while ) substance use type: does not use Meds Home Medications and Allergies Home Medications Medication Instructions Recorded Confirmed Type multivitamin-amino acids tablet 1 tab PO DAILY 12/25/20 02/17/22 History memantine 10 mg tablet 10 mg PO BID 06/12/21 02/17/22 History Parking Permit... #1 ea 10/22/21 02/17/22 Rx Lightweight Lrg Wheelchair #1 ea 02/17/22 02/17/22 Rx sertraline 25 mg tablet 25 mg PO DAILY #30 tabs 02/27/22 Rx atorvastatin 20 mg tablet See Rx Instructions .Route 07/28/22 Rx .COMPLEX #24 tabs hydrochlorothiazide 25 mg tablet See Rx Instructions .Route 08/18/22 Rx .COMPLEX #30 tabs Allergies Allergy/AdvReac Type Severity Reaction Status Date / Time No Known Drug Allergies Allergy Verified 10/09/22 08:30 Review of Systems Review of Systems Narrative: Negative except above Exam Vital Signs (past 8 hours): - 10/09/22 15:49 10/09/22 15:50 10/09/22 15:50 Temperature 99.3 F Pulse Rate 77 Blood Pressure 152/65 H Pulse Oximetry 95 95 Oxygen Delivery Method Room Air Narrative Exam Narrative: Alert elderly female awake interactive moving all extremities no acute distress HEENT exam shows no abnormality. Neck supple without adenopathy JVD or bruits. Lungs are clear. Heart is regular rate and rhythm abdomen is benign obese extremities 1+ edema no erythema neurologic exam patient is not oriented but is alert does not appear to be focal Objective Labs 10/08/22 20:26 10/08/22 20:26 Labs: Laboratory Results - last 24 hr 10/08/22 10/08/22 20:26 20:26 WBC 7.2 RBC 4.22 Hgb 13.1 Hct 37.4 MCV 88.7 MCH 31.1 MCHC 35.1 RDW 13.6 Plt Count 204 Neut % (Auto) 75.9 H Lymph % (Auto) 13.5 L [place] % (Auto) 9.7 Eos % (Auto) 0.6 L Baso % (Auto) 0.3 Neut # (Auto) 5500 Lymph # (Auto) 1000 L [place] # (Auto) 700 Eos # (Auto) 0 Baso # (Auto) 0 Sodium 135 L Potassium 3.6 Chloride 98 Carbon Dioxide 32 BUN 12 Creatinine 0.65 Estimated GFR > 60 BUN/Creatinine Ratio 18.5 Glucose 113 H Calcium 8.7 Total Bilirubin 1.0 AST 32 ALT 22 Alkaline Phosphatase 112 Total Protein 7.0 Albumin 3.8 Globulin 3.2 Albumin/Globulin Ratio 1.2 Assessment & Plan Assessment & Plan narrative: Weakness. Etiology is unclear but probably a progression of her severe dementia. There appears to be no major change. Workup has been pretty extensive and showed no abnormality or infections. I think this is going to be a progressive issue and is not going to get better but has no other changes. Discussed with . This point will see about biggest issue which is long-term placement whether that can be done at home or whether that can not is unclear but certainly he would need 24 hour care he is not going to be able to move her she is was a 2 person assist the last time we checked. It is nonfocal it is not stroke related and at this point I discussed with that I do not think it is going to get a lot better. He understands. His questions were answered. Dementia. Severe. End-stage it appears. Clearly I am just meeting her but from history she is progressing aggressively at this point. We discussed with that there is really no stopping this. In the really we need to make some decisions on what our goals with care are. If she progresses at this stage hospice certainly is something we may need to consider. Patient is unable to care for herself in any valid way she is becoming increasingly weak she is progressing in other ways and not participating in care will not take her medicines probably will start not eating and at this point there may need to be some discussion of hospice which we began discussion today. I also would like him to think about what he wants to do about long-term medications I really think we should probably pull back a little bit and not treat aggressively but that is his decisions and we certainly will follow whatever wishes he wants. He needs to think about it and decide because I think that decision is going to need to be made soon. Hopefully he can discuss with his usually primary care doctor on Wednesday by phone or if we still have her here at that time. We need to find placement. Hypertension. Will continue her usual meds. Certainly do not want to let that yet elevated. Hyperlipidemia. Discussed with patient's . I do not think that it would be unreasonable to stop her atorvastatin. I do not think we are gaining anything from it and long-term prevention seems like a unlikely need at this time. Code status DNR. Patient's 's agrees with this. Disposition. We would a long discussion clearly home is going to be difficult and we are going to have to find some area where she can be treated. Hospice may be an issue and I will consult to at least have him discuss what the options are. Not sure this is where we are but he needs to hear all the available issues will discuss with social service tomorrow. 87 minutes spent with emergency room doctor with patient dictations orders.
[2022-10-09] MEDS: ACETAMINOPHEN 325 MG TABLET 650 MG PO (19:51)
[2022-10-09] MEDS: DOCUSATE 100 MG CAPSULE PO (20:49)
[2022-10-09] MEDS: SODIUM CHLORIDE 0.9% FLUSH 10 ML IV (20:50)
--- NOTE | 2022-10-09 22:48 | PC.NURSE ---
Patient admitted & admission assessment was completed by day RN. Unable to orient patient to her room, she's diagnosed with severe Dementia & very confused. Bed alarm activated, will continue plan of care & monitor.
[2022-10-10] MEDS: ACETAMINOPHEN 325 MG TABLET 650 MG PO (03:13)
[2022-10-10 08:00] VITALS: BP 146/87; PULSE 83; RESP 17; TEMP 36.6; O2SAT 98
--- NOTE | 2022-10-10 08:52 | P.PN_ITS ---
Subjective Subjective Date Patient Seen: 10/10/22 Time Patient Seen: 08:52 Interval history: Patient is seen in follow-up failure to thrive and dementia. No real change through the night. Did well. No complaints or problems Exam Vital Signs (past 8 hours): Oxygen Delivery Method Room Air Oxygen Flow Rate 0 Narrative Exam Narrative: Alert female sleeping intermittently not responsive at this time to questions. Lungs are clear heart is regular rate and rhythm Objective Labs 10/08/22 20:26 10/08/22 20:26 [facility] Medical History (Updated 10/09/22 @ 17:45 by Raimundo Espinoza DO) Abnormal Pap smear of cervix Cataract (~2011) Chicken pox Dextroscoliosis Diverticulosis (07/12/14) Fibrocystic breast disease (1992) 4 para 4 Hemorrhoids Hyperlipidemia Measles Mumps Peptic ulcer disease (2004) Scoliosis (~1956) Surgical History History of breast biopsy (1992) History of colonoscopy (07/12/14) History of laparoscopy (04/2009) History of left inguinal hernia repair (1991) Family History Brother Age: 72 Cancer Sister Age: 81 Hypertension High cholesterol Brother No problems noted. Brother No problems noted. Brother ALS (amyotrophic lateral sclerosis) Father CAD (coronary artery disease) S/P CABG (coronary artery bypass graft) Arthritis Grandmother No problems noted. Mother Arthritis Hyperlipidemia Hypertension Grandfather No problems noted. Grandmother No problems noted. Sister No problems noted. Other Diabetes mellitus Social History marital status: number of children: 2 household members: spouse lives independently: Yes caregiver/support person: No housing: house Smoking Status: Never smoker second hand exposure: No alcohol intake: current substance use type: does not use Assessment & Plan Assessment & Plan narrative: Failure to thrive. Patient with progressive dementia. Probably eating less clearly severely limiting her ADLs. This is not secondary to infection no other causes. All progressive dementia. Long discussion with with case management social worker. He understands the situation. No change in treatment at this time. Mostly looking for long-term decisions. Dementia. Severe. End-stage. Discussed with . Does feel like he understands transferred to hospice. His goal is to get her home. Will see how that works. No change in treatment at this time. Continue meds but I do not think they are going to make any difference Weakness. Severe. Secondary to her failure to thrive secondary to dementia. There is no other changes. We discussed options. Really no treatment at this time. Believe it is going to be a progressive worsening. Hypertension stable. Hyperlipidemia. Will not treat. Code status DNR. Disposition. Spent time with case management social worker goal will be to get home. Possibly with hospice. Will make that discussion today. I think this is progressive and will not improve. I do not think there is any chance of that. And understands. Comfortable with decision at this time. But would like to discuss with hospice. At this point that will be goal. 40 minutes spent with case management social worker dictation orders Quality VTE Deep Vein Thrombosis/Pulmonary Embolism Present on Admission: No
[2022-10-10] MEDS: DOCUSATE 100 MG CAPSULE PO ×2 (10:04→21:04)
[2022-10-10] MEDS: ENOXAPARIN 40 MG/0.4 ML SYRINGE SUBCUT (10:04)
[2022-10-10] MEDS: hydroCHLOROthiazide 25 MG TABLET PO (10:04)
[2022-10-10] MEDS: MEMANTINE HCL 5 MG TABLET 10 MG PO ×2 (10:04→21:03)
[2022-10-10] MEDS: SERTRALINE 50 MG TABLET 25 MG PO (10:04)
[2022-10-10] MEDS: MULTIVITAMIN 1 TABLET 1 TAB PO (10:05)
--- NOTE | 2022-10-10 10:11 | PT.IPTN ---
Physical Therapy Treatment Note M2 PT-IP Current Condition Start: 10/08/22 16:02 Freq: Status: Active Protocol: Document 10/08/22 15:47 DCW (Rec: 10/08/22 16:14 DCW [id number]) Physical Therapy Current Condition Current Condition Evaluation Date 10/08/22 Treatment Diagnosis Weakness, difficulty ambulating Onset Date Past few days M3 PT-IP Subjective Start: 10/08/22 16:02 Freq: Status: Active Protocol: Document 10/10/22 10:09 AB (Rec: 10/10/22 10:10 AB [id number]) Subjective Physical Therapy Visit Type Type Administrative Note Notes Per rounds meeting: pt going to hospice care and no PT needs. will d/c PT. M7 PT-IP Assessment and Plan Start: 10/08/22 16:02 Freq: Status: Active Protocol: Document 10/10/22 10:09 AB (Rec: 10/10/22 10:10 AB [id number]) PT Summary Assessment and Plan Frequency of Treatment Frequency Of Treatment Discharge
--- NOTE | 2022-10-10 12:51 | PC.NURSE ---
Addendum entered by Philomena Nick R.N. 10/10/22 17:08: Condition remains essentially unchanged Call light w/in reach, bed alarm on for pt safety. Continue w/plan of care Original Note: Pt resting, denies discomfort when asked. Order mto place received; Bladder scan prior was 550cc radha urine. Floey placed w/700 return. When asked pt states she feels a bit better. HL intact/patent. Pt resting at intervals Call light w/in reach, bed alarm on for pt safety. Continue w/plan of care.
--- NOTE | 2022-10-10 14:23 | PM.PN.1 ---
Subjective Subjective Date Patient Seen: 10/10/22 Time Patient Seen: 14:23 Interval history: Patient awake but noninteractive Exam Vital Signs (past 8 hours): - 10/10/22 08:00 Temperature 97.8 F Pulse Rate 83 Respiratory Rate 17 Blood Pressure 146/87 H Pulse Oximetry 98 Oxygen Flow Rate 0 Oxygen Delivery Method Room Air Oxygen Flow Rate 0 Objective Labs 10/08/22 20:26 10/08/22 20:26 [facility] Medical History (Updated 10/09/22 @ 17:45 by Raimundo Espinoza DO) Abnormal Pap smear of cervix Cataract (~2011) Chicken pox Dextroscoliosis Diverticulosis (07/12/14) Fibrocystic breast disease (1992) 4 para 4 Hemorrhoids Hyperlipidemia Measles Mumps Peptic ulcer disease (2004) Scoliosis (~1956) Surgical History History of breast biopsy (1992) History of colonoscopy (07/12/14) History of laparoscopy (04/2009) History of left inguinal hernia repair (1991) Family History Brother Age: 72 Cancer Sister Age: 81 Hypertension High cholesterol Brother No problems noted. Brother No problems noted. Brother ALS (amyotrophic lateral sclerosis) Father CAD (coronary artery disease) S/P CABG (coronary artery bypass graft) Arthritis Grandmother No problems noted. Mother Arthritis Hyperlipidemia Hypertension Grandfather No problems noted. Grandmother No problems noted. Sister No problems noted. Other Diabetes mellitus Social History marital status: number of children: 2 household members: spouse lives independently: Yes caregiver/support person: No housing: house Smoking Status: Never smoker second hand exposure: No alcohol intake: current substance use type: does not use Quality VTE Deep Vein Thrombosis/Pulmonary Embolism Present on Admission: No
--- NOTE | 2022-10-10 17:02 | CM.DPNOTE ---
DCP Note Lengthy conversation at bedside between this COREMAKER, Dr Last and spouse today; inevitably spouse agrees taking patient home w/hospice service is the most appropriate outcome and would like a referral made today Patient/spouse live in [place]. Placed call to [facility], had to LM for [employer] RN. Faxed referral Later heard back via voicemail from [employer] RN Susan Daley P [phone] F [phone] that hospital bed could not be delivered until (earliest) Wednesday and start of care likely Wednesday Placed call to [facility], Yanet explains they cannot open service for a few days Referral faxed to [facility] asking that spouse Kike be contacted to discuss hospice services According to conversation w/spouse this morning, hospital bed needs to be delivered before patient returns home as patient is a 2 person max assist. BLS transport needed as well Addtl coordination needed for this DCP Plan: Anticipate discharge home w/spouse, in home caregivers (resume), [facility] (as long as patient is eligible for services) once hospital bed delivered Back up plan may need to be continued search for SNF vs home w/HH, resumption (increase?) in caregivers at home via BLS JW
[2022-10-10 20:00] VITALS: BP 143/68; PULSE 50; RESP 17; TEMP 36.4; O2SAT 92
[2022-10-10] MEDS: SODIUM CHLORIDE 0.9% FLUSH 10 ML IV (21:04)
[2022-10-11 07:00] VITALS: BP 146/74; PULSE 105; RESP 17; TEMP 36.2; O2SAT 94
[2022-10-11] MEDS: SODIUM CHLORIDE 0.9% FLUSH 10 ML IV ×2 (09:00→21:56)
--- NOTE | 2022-10-11 10:25 | PM.PN.1 ---
Subjective Subjective Date Patient Seen: 10/11/22 Time Patient Seen: 10:25 Interval history: Patient with no complaints today. No pain. has questions Exam Vital Signs (past 8 hours): - 10/11/22 07:00 Temperature 97.1 F L Pulse Rate 105 H Respiratory Rate 17 Blood Pressure 146/74 H Pulse Oximetry 94 Oxygen Flow Rate 0 Oxygen Delivery Method Room Air Oxygen Flow Rate 0 Narrative Exam Narrative: Alert female in no acute distress lungs are clear heart is regular rate and rhythm Objective Labs 10/08/22 20:26 10/08/22 20:26 [facility] Medical History (Updated 10/09/22 @ 17:45 by Raimundo Espinoza DO) Abnormal Pap smear of cervix Cataract (~2011) Chicken pox Dextroscoliosis Diverticulosis (07/12/14) Fibrocystic breast disease (1992) 4 para 4 Hemorrhoids Hyperlipidemia Measles Mumps Peptic ulcer disease (2004) Scoliosis (~1956) Surgical History History of breast biopsy (1992) History of colonoscopy (07/12/14) History of laparoscopy (04/2009) History of left inguinal hernia repair (1991) Family History (Reviewed 11/23/17 @ 11:42 by Silvia Dennison, JANINE, ANP, GEOSPATIAL INFORMATION SCIENTIST-C) Brother Age: 72 Cancer Sister Age: 81 Hypertension High cholesterol Brother No problems noted. Brother No problems noted. Brother ALS (amyotrophic lateral sclerosis) Father CAD (coronary artery disease) S/P CABG (coronary artery bypass graft) Arthritis Grandmother No problems noted. Mother Arthritis Hyperlipidemia Hypertension Grandfather No problems noted. Grandmother No problems noted. Sister No problems noted. Other Diabetes mellitus Social History marital status: number of children: 2 household members: spouse lives independently: Yes caregiver/support person: No housing: house Smoking Status: Never smoker second hand exposure: No alcohol intake: current substance use type: does not use Assessment & Plan Assessment & Plan narrative: Failure to thrive. Patient appears to be mostly just with progressive dementia. We discussed process of going home. Which plan is for her to go home either Wednesday or Wednesday hopefully tomorrow. Depends on what hospice can get bed in. We discussed her strength which right now is 2 person assist. When we go home his concern as well we ever ambulate her again. We discussed the unlikely cortez of that given the fact that it is 2 person assist. We will not be doing physical therapy at home hospice certainly is not going to provide that but he can work with her. My guess is she is going to be bed-bound for the rest of her life. And we discussed this in the reasoning behind that. He understands. Questions were answered. Other questions about logistics were discussed. Hopefully will get her home tomorrow. Severe dementia. End-stage. Progressive worsening. No treatment. No evidence of inciting factor and I suspect this is just her disease presenting with worsening. In my guess this has been going on for awhile. But became significant over the last week or 2. No other changes. Will continue current therapy follow-up a.m.. Hopefully discharge tomorrow. 's comfortable with direction we are approaching. Hypertension. Stable. Hyperlipidemia. No treatment at this time. Code status DNR. Disposition discussed with social service. They are hoping would be health will be able to admit tomorrow with bedding otherwise maybe Wednesday will have to see. No other change. Follow-up a.m. 35 minutes spent with the patient dictation social service nursing Quality VTE Deep Vein Thrombosis/Pulmonary Embolism Present on Admission: No
[2022-10-11] MEDS: DOCUSATE 100 MG CAPSULE PO ×2 (10:35→21:56)
[2022-10-11] MEDS: hydroCHLOROthiazide 25 MG TABLET PO (10:36)
[2022-10-11] MEDS: MEMANTINE HCL 5 MG TABLET 10 MG PO ×2 (10:36→21:55)
[2022-10-11] MEDS: MULTIVITAMIN 1 TABLET 1 TAB PO (10:37)
[2022-10-11] MEDS: ENOXAPARIN 40 MG/0.4 ML SYRINGE SUBCUT (10:37)
[2022-10-11] MEDS: CHOLECALCIFEROL (VITAMIN D3) 1,000 UNIT TABLET 1000 UNIT PO (12:35)
--- NOTE | 2022-10-11 15:29 | CM.DPC ---
DCP Cont: Per Julia at [facility], pt's Hospice admission might be somewhat soft if only Advanced dementia but since pt is not ambulating and not eating much then likely they can meet criteria for Hospice but will need to be reviewed by their intake team. SW confirmed that they cannot do Hospice Info Visit today but can tomorrow. SW spoke to pt's spouse and answered many questions and reiterated the purpose of Hospice/Comfort is not to continue pursuing tx or medications unless it helps relieve pt of discomfort. Spouse seemed to have some difficulty understanding but remains in agreement with pt to come home with Hospice and the Resume caregivers. Spouse plans to be bedside with pt in the morning around 0730 so he will be here for the MD to round and is agreeable with SW helping him get connected to [facility] for Info Visit and confirm they can order DME for plans of home kelly. Plan: SW to follow closely in the AM with spouse bedside and [facility] towards moving forward with plan of home. [facility]
[2022-10-11 20:00] VITALS: BP 141/61; PULSE 73; RESP 18; TEMP 36.5; O2SAT 94
--- NOTE | 2022-10-12 08:19 | P.PN_ITS ---
Subjective Subjective Date Patient Seen: 10/12/22 Time Patient Seen: 08:19 Interval history: Patient seen and evaluated this morning. Requiring assistance to eating. She is 2 person assist. at bedside. Patient has lots of questions about how to manage and care for patient at home. Hospice evaluation is pending. Exam Vital Signs (past 8 hours): Oxygen Delivery Method Room Air Oxygen Flow Rate 0 Narrative Exam Narrative: Gen.: Patient is alert needs lots of verbal cues. Patient is disoriented to person place and time she is pleasantly demented HEENT: Pupils equal round and reactive or mucosa is moist Cardio: Regular rate and rhythm Respiratory: Normal respiratory effort Abdomen: Soft Extremities: Improved lower extremity edema Objective Labs 10/08/22 20:26 10/08/22 20:26 [facility] Medical History (Updated 10/09/22 @ 17:45 by Raimundo Espinoza DO) Abnormal Pap smear of cervix Cataract (~2011) Chicken pox Dextroscoliosis Diverticulosis (07/12/14) Fibrocystic breast disease (1992) 4 para 4 Hemorrhoids Hyperlipidemia Measles Mumps Peptic ulcer disease (2004) Scoliosis (~195) Surgical History History of breast biopsy (1992) History of colonoscopy (07/12/14) History of laparoscopy (04/2009) History of left inguinal hernia repair (1991) Family History Brother Age: 72 Cancer Sister Age: 81 Hypertension High cholesterol Brother No problems noted. Brother No problems noted. Brother ALS (amyotrophic lateral sclerosis) Father CAD (coronary artery disease) S/P CABG (coronary artery bypass graft) Arthritis Grandmother No problems noted. Mother Arthritis Hyperlipidemia Hypertension Grandfather No problems noted. Grandmother No problems noted. Sister No problems noted. Other Diabetes mellitus Social History marital status: number of children: 2 household members: spouse lives independently: Yes caregiver/support person: No housing: house Smoking Status: Never smoker second hand exposure: No alcohol intake: current substance use type: does not use Assessment & Plan Assessment and plan (1) Adult failure to thrive: Status: Acute (2) Alzheimer's dementia: Qualifiers: Alzheimer's disease onset: unspecified onset Dementia severity: severe Dementia behavioral or psychological symptom: without behavioral, psychotic, or mood disturbance or anxiety Qualified Code(s): G30.9 - Alzheimer's disease, unspecified; F02.C0 - Dementia in other diseases classified elsewhere, severe, without behavioral disturbance, psychotic disturbance, mood disturbance, and anxiety Status: Acute Plan Patient with Alzheimer's dementia and failure to thrive at home. Patient req uiring more care than provided at home. Patient will have social service liaison come in and evaluate patient for discharge opportunities and plan. Hospice is certainly something her and her would like to move forward with. They will have an evaluation will need a hospital bed. Plan is for best safest discharge. She is 2 person assist. Will have social service liaison evaluate with her and her today about discharge home versus home health versus hospice or care facility. Patient is medically stable for discharge at this point. Hypertension blood pressure stable Hyperlipidemia hyperlipidemia Code status DNR Disposition and plan. Safe discharge plan with social service liaison. Quality VTE Deep Vein Thrombosis/Pulmonary Embolism Present on Admission: No
[2022-10-12 08:24] VITALS: BP 147/65; PULSE 68; RESP 18; TEMP 36.7; O2SAT 94
[2022-10-12] MEDS: DOCUSATE 100 MG CAPSULE PO ×2 (09:23→21:17)
[2022-10-12] MEDS: MULTIVITAMIN 1 TABLET 1 TAB PO (09:23)
[2022-10-12] MEDS: CHOLECALCIFEROL (VITAMIN D3) 1,000 UNIT TABLET 1000 UNIT PO (09:23)
[2022-10-12] MEDS: hydroCHLOROthiazide 25 MG TABLET PO (09:23)
[2022-10-12] MEDS: MEMANTINE HCL 5 MG TABLET 10 MG PO ×2 (09:23→21:17)
[2022-10-12] MEDS: ENOXAPARIN 40 MG/0.4 ML SYRINGE SUBCUT (09:23)
[2022-10-12] MEDS: SODIUM CHLORIDE 0.9% FLUSH 10 ML IV ×2 (09:24→21:17)
--- NOTE | 2022-10-12 12:06 | CM.DPNOTE ---
Tawnya requested S transport for 10/13/22Wednesday at 1500. Tawnya is working on Kids [facility]. Tamanna Prasad CM Assist.
--- NOTE | 2022-10-12 12:50 | OT.IPNOTE ---
New OT eval order received. Pt is not appropriate for OT services at this time as she is unable to follow commands. Will discharge the order.
--- NOTE | 2022-10-12 15:23 | CM.DPC ---
DCP Hospice Planning: SW spoke to Itzel at [facility] this morning and updated on spouse being bedside this morning and assisted with getting spouse on the phone with Itzel. SW met bedside with spouse and discussed the process of Hospice DME being delivered and scheduling transport around the time of fence installer foreman arriving in the home and spouse in agreement and confirms BLS transport needed as pt total assist and confused and aware no guarantee of insurance coverage for BLS. Itzel confirms that Info Visit completed and spouse agreeable to Hospice and DME ordered today for delivery tomorrow and their RN can do a start of care in the home at 1600. DENIZ Tamanna kindly called [facility] and scheduled BLS transport home per spouse request for 1500 tomorrow 10/13 to be home by the time fence installer foreman arrives at 1600. BLS form completed. SW updated MD that currently no POLST on file and he confirms DNR orders in the computer and aware that ideally POLST would be completed for BLS transport but spouse plans to remain at home the rest of today and tomorrow to prepare the house for hospital bed delivery, meeting with [facility] to increase CG hours, and pt's arrival with Hospice. Plan: SW to follow for plan of discharge home with [facility] via [facility] 10/13 around 1500. AMI [facility]
[2022-10-12 19:00] VITALS: BP 138/81; PULSE 68; RESP 16; TEMP 37.1; O2SAT 94
--- NOTE | 2022-10-12 22:54 | PC.NURSE ---
Patient is alert but only able to state her first name. Did follow direction and answers yes/no questions but most of conversation is nonsensical. Breath sounds CTA with RA sat of 94%. HR irregular but rate controlled. Denies nausea. BT hypoactive. Indwelling catheter removed earlier today and has external catheter in place and urine is clear, radha. Is assisted to reposition q2h as doesn't seem to understand how to turn herself. Denies pain when asked. Is wearing bilateral calf SCD's. Fall risk score is high and bed alarm is activated.
--- NOTE | 2022-10-13 07:56 | P.DS_ITS ---
History of Present Illness History of Present Illness Chief complaint: Weakness,trouble walking,cellulitis Discharge Providers Provider Date of admission: 10/09/22 17:45 Discharge Date: 10/13/22 Primary care physician: Karolina Montague MD Consults: 10/07/22 20:00 Consult to VALVE AND REGULATOR REPAIRER - Expediter Clerk Stat Comment: 10/08/22 12:56 Consult to Home Health Stat Comment: PT and OT Reason For Exam: HH referral 10/08/22 13:36 Consult to Occupational Therapy Evaluate & Treat Comment: Physician Instructions: Evaluate and treat Consult to Physical Therapy Evaluate & Treat Comment: Physician Instructions: Evaluate and Treat 10/08/22 15:01 Consult to Occupational Therapy Evaluate & Treat Comment: Physician Instructions: Evaluate and treat 10/08/22 15:02 Consult to Physical Therapy Evaluate & Treat Comment: Physician Instructions: Evaluate and Treat 10/09/22 09:21 Consult to Physical Therapy Evaluate & Treat Comment: Physician Instructions: Evaluate and Treat 10/09/22 18:41 Consult to Hospice Referral Routine Comment: 10/09/22 19:08 Consult to Discharge Planning Routine Comment: Consult to Occupational Therapy Evaluate & Treat Comment: Physician Instructions: Evaluate and treat Consult to Physical Therapy Evaluate & Treat Comment: Physician Instructions: Evaluate and Treat Discharge provider: Nader Xavier MD Summary Hospital Course Discharge Diagnosis: Dementia severe end-stage Adult failure to thrive due to end-stage dementia Weakness with inability to ambulate due to dementia and failure to thrive Hypertension Hyperlipidemia Hospital Course: 77-year-old female with advanced progressive dementia that was brought into the hospital by family patient was having significant difficulties at home with ambulation failure to thrive and eating. Patient was admitted for further evaluation and workup during her hospital stay she had appropriate laboratory testing and imaging which were unremarkable. She has a physical therapy and occupational therapy and patient was found to be bed ridden with difficulty with ambulation. During this time we had social services technician evaluation in multiple discussions occurred with the family and primary caregiver her about n ext steps and goals of care. Discussion was made for patient and family at her wishes to be advanced to home care with hospice. Hospice was contacted and consulted and evaluated met with patient and family. Ultimately the decision was made for the patient to return home with advanced care support and hospice to meet the goals in the needs of the patient and the family. Exam Vital Signs (past 8 hours): Oxygen Delivery Method Room Air Oxygen Flow Rate 0 Objective Labs 10/08/22 20:26 10/08/22 20:26 [facility] Medical History (Updated 10/09/22 @ 17:45 by Raimundo Espinoza DO) Abnormal Pap smear of cervix Cataract (~2011) Chicken pox Dextroscoliosis Diverticulosis (07/12/14) Fibrocystic breast disease (1992) 4 para 4 Hemorrhoids Hyperlipidemia Measles Mumps Peptic ulcer disease (2004) Scoliosis (~1957) Surgical History History of breast biopsy (1992) History of colonoscopy (07/12/14) History of laparoscopy (04/2009) History of left inguinal hernia repair (1991) Family History Brother Age: 72 Cancer Sister Age: 81 Hypertension High cholesterol Brother No problems noted. Brother No problems noted. Brother ALS (amyotrophic lateral sclerosis) Father CAD (coronary artery disease) S/P CABG (coronary artery bypass graft) Arthritis Grandmother No problems noted. Mother Arthritis Hyperlipidemia Hypertension Grandfather No problems noted. Grandmother No problems noted. Sister No problems noted. Other Diabetes mellitus Social History marital status: number of children: 2 household members: spouse lives independently: Yes caregiver/support person: No housing: house Smoking Status: Never smoker second hand exposure: No alcohol intake: current substance use type: does not use Discharge Plan Discharge Plan Under care of provider: Dr. Jain Provider Discharge Comment: Home with hospice Discharge orders & Medications Discharge Orders: Discharge (Order); Ordered 10/13/22 Ordered By: Nader Xavier Prescriptions: Continued memantine 10 mg tablet 10 mg PO BID hydrochlorothiazide 25 mg tablet See Rx Instructions .ROUTE .COMPLEX Qty: 30 0RF Dose Instruction: Take 1 tablet (25 mg) by mouth daily Rx Instructions: Take 1 tablet (25 mg) by mouth daily (DME) Parking Permit... See Rx Instructions .ROUTE .MEDSUPPLY Qty: 1 0RF Rx Instructions: As directed cholecalciferol (vitamin D3) 25 mcg (1,000 unit) Tablet 25 mcg PO DAILY rivastigmine 4.6 mg/24 hour patch 24 hour 1 patch topical DAILY (DME) Lightweight Lrg Wheelchair large See Rx Instructions Rx Instructions: As directed Discontinued atorvastatin 20 mg tablet See Rx Instructions .ROUTE .COMPLEX Qty: 24 1RF Dose Instruction: Take 1 tablet (20 mg) by mouth twice a week Rx Instructions: Take 1 tablet (20 mg) by mouth twice a week Follow up/Referrals: Karolina Montague MD [Primary Care Provider] - Visit Report/Discharge Packet Stand Alone Forms: Patient Portal/API, Stroke Signs & Symptoms Discharge Data Primary Care Provider: Karolina Montague Attending Provider: Karolina Montague Admit Date/Time: 10/09/22 17:45 Quality VTE Deep Vein Thrombosis/Pulmonary Embolism Present on Admission: No
[2022-10-13] MEDS: MEMANTINE HCL 5 MG TABLET 10 MG PO (08:42)
[2022-10-13] MEDS: DOCUSATE 100 MG CAPSULE PO (08:43)
[2022-10-13] MEDS: SERTRALINE 50 MG TABLET 25 MG PO (08:43)
[2022-10-13] MEDS: hydroCHLOROthiazide 25 MG TABLET PO (08:43)
[2022-10-13] MEDS: ENOXAPARIN 40 MG/0.4 ML SYRINGE SUBCUT (08:44)
[2022-10-13] MEDS: CHOLECALCIFEROL (VITAMIN D3) 1,000 UNIT TABLET 1000 UNIT PO (08:44)
[2022-10-13] MEDS: MULTIVITAMIN 1 TABLET 1 TAB PO (08:44)
[2022-10-13 08:50] VITALS: BP 130/55; PULSE 86; RESP 18; TEMP 36.4; O2SAT 94
--- NOTE | 2022-10-13 08:53 | CM.DPC ---
DCP Discharge Home with Hospice Per MD, pt is stable for discharge home with Hospice today and discharge completed and MD agreeable to sign the BLS form for stretcher transport due to pt's inability to follow directives from end stage Alzheimer and 2PA and unsafe for POV or cabulance. KEN faxed d/c summary and left msg with [facility] regarding pt's d/c home today via BLS at 1500. KEN called spouse at home as he is there waiting for DME delivery today and meeting with [facility] to increase CG hours and updated on above and he remains in agreement with pt to d/c home today via [facility] and [facility]. KEN updated [employer]PA[employer]ILDING, spinner hand, and RN and BLS form completed and signed and placed on pt chart. Plan: Patient to d/c home today via [facility] at 1500 and [facility] gum remover intake at home today at 1600. AMI [facility]
== END 2022-10-13 15:07 | disposition hospice, home (50) ==
LOC: ED 10-09 17:45 → AC 10-09 17:46
PROVIDERS: Emergency Medicine; Admitting Provider Family Medicine; Emergency Provider Emergency Medicine; PCP Family Medicine; Visit Provider Family Medicine
DX: R62.7 Adult failure to thrive (principal); G30.9 Alzheimer's disease, unspecified; F02.C0 Dementia in other diseases classified elsewhere, severe, without behavioral disturbance, psychotic disturbance, mood disturbance, and anxiety; R53.1 Weakness; I10 Essential (primary) hypertension; E78.5 Hyperlipidemia, unspecified
CPT/HCPCS: 36415; 70450; 71045; 80053; 81001; 82550; 83605; 83880; 84145; 84484; 85025; 87040; 93005; 96365; 96372; 96375; 97162; 97166; 97530; 99233; 99238; 99284; 99285; 99291; G0378; J0690; J1200; J1650; J1940

== ENCOUNTER 2023-02-02 10:05 | Emergency (ER) | payer OTHER, SELFPAY ==
[2022-10-09 19:08] VITALS: BMI 33.0
[2023-02-02 10:05] VITALS: BP 151/72; PULSE 86; RESP 16; TEMP 36.4; O2SAT 95
--- NOTE | 2023-02-02 10:11 | ED_ITS ---
HPI - Altered Mental Status General Chief Complaint: Weakness Stated Complaint: UTI, altered mental status Time Seen by Provider: 02/02/23 10:05 Source: EMS, RN notes reviewed and old records reviewed Mode of arrival: EMS Limitations: altered mental status History of Present Illness HPI narrative: 77-year-old female with history dementia, dyslipidemia presenting from home via EMS for altered mental status. Patient has recently been on hospice, EMS is unclear of her underlying diagnosis they state she has graduated from hospice but is still comfort measures and arrives with a POLST form stating such. Patient was seen Wednesday in her normal mental state by home health care which was mumbling and word salad today she is responsive to pain but otherwise not interactive. Patient was noted to have a clogged catheter this morning that was removed and was sent for possible antibiotics. is in route but has not arrived but per report is still planning for comfort measures but would like potential antibiotics. Patient's eyes are open, breathing without difficulty, but unable to participate in exam. She does grimace when I palpate her lower abdomen which feels very full and I suspect she is some significant urinary retention. Related Data Home Medications Medication Instructions Recorded Confirmed memantine 10 mg tablet 10 mg PO BID 06/12/21 10/11/22 Lightweight Lrg Wheelchair 10/11/22 10/11/22 cholecalciferol (vitamin D3) 25 25 mcg PO DAILY 10/11/22 10/11/22 mcg (1,000 unit) tablet rivastigmine 4.6 mg/24 hour 1 patch topical DAILY 10/11/22 10/11/22 transdermal patch Previous Rx's Medication Instructions Recorded Parking Permit... #1 ea 10/22/21 hydrochlorothiazide 25 mg tablet See Rx Instructions .Route 08/18/22 .COMPLEX #30 tabs semi electric bariatric bed #1 ea 12/08/22 lorazepam 0.5 mg tablet 0.5 mg PO TID PRN agitation #90 01/12/23 tabs nitrofurantoin 100 mg PO BID 7 days #14 caps 01/31/23 monohydrate/macrocrystals 100 mg capsule (Macrobid) oxybutynin chloride 5 mg tablet 5 mg PO DAILY #90 tabs 02/01/23 Allergies Allergy/AdvReac Type Severity Reaction Status Date / Time No Known Drug Allergies Allergy Verified 02/02/23 10:31 Review of Systems Review of Systems ROS Unobtainable: Unobtainable due to mental status/LOC Patient History Medical History (Updated 02/02/23 @ 13:34 by Lucie Nowak DO) Dextroscoliosis Diverticulosis (07/12/14) Chicken pox Measles Mumps Scoliosis (~1956) Hemorrhoids Hyperlipidemia Abnormal Pap smear of cervix Cataract (~2011) Peptic ulcer disease (2004) 4 para 4 Fibrocystic breast disease (1992) Surgical History History of colonoscopy (07/12/14) History of laparoscopy (04/2009) History of breast biopsy (1992) History of left inguinal hernia repair (1991) Family History Brother Age: 72 Cancer Sister Age: 81 Hypertension High cholesterol Brother No problems noted. Brother No problems noted. Brother ALS (amyotrophic lateral sclerosis) Father CAD (coronary artery disease) S/P CABG (coronary artery bypass graft) Arthritis Grandmother No problems noted. Mother Arthritis Hyperlipidemia Hypertension Grandfather No problems noted. Grandmother No problems noted. Sister No problems noted. Other Diabetes mellitus Social History marital status: number of children: 2 household members: spouse lives independently: Yes caregiver/support person: No housing: house Smoking Status: Never smoker second hand exposure: No alcohol intake: current substance use type: does not use Smoking Status: Never smoker alcohol intake frequency: holidays/special occasions only Substance Use Type: does not use Exam Narrative Exam Narrative: GENERAL: Awake, eyes open patient does grimace and look around but does not interact. She does not appear to be quite uncomfortable particularly with palpation of her abdomen. HEENT: Head normocephalic, atraumatic, EOMI, pupils reactive, face symmetric, moist mucous membranes NECK: Supple, full range of motion CARDIOVASCULAR: Regular rate and rhythm without murmurs, rubs or gallops. RESPIRATORY: Breath sounds equal bilaterally, no wheezes rales or rhonchi. ABDOMEN: Soft, positive for tenderness, patient has significant fullness and I am able to palpate her bladder just underneath the umbilicus. Normoactive bowel sounds all 4 quadrants. No guarding or rebound, rigidity, no mass : No CVA tenderness EXTREMITIES: Pulses equal in all 4 extremities. No significant edema bilateral lower extremities. NEUROLOGICAL: Cranial nerves II through XII grossly intact. SKIN: Warm, dry, no petechiae, no rashes or lesions noted. Initial Vital Signs Initial Vital Signs: Vital Signs Temperature 97.6 F 02/02/23 10:05 Pulse Rate 86 02/02/23 10:05 Respiratory Rate 16 02/02/23 10:05 Blood Pressure 151/72 H 02/02/23 10:05 Pulse Oximetry 95 02/02/23 10:05 Oxygen Delivery Method Room Air 02/02/23 10:05 Course Orders Ordered: Discontinued Medications Ceftriaxone Sodium 1,000 mg/ (Sodium Chloride) 100 mls @ 200 mls/hr IV NOW ONE Stop: 02/02/23 10:47 Last Infusion: 02/02/23 11:32 Dose: Infused Documented By: Admin: 02/02/23 11:02 Dose: 200 mls/hr Documented By: WILLA Vital Signs Vital signs: Vital Signs - 8 hr 02/02/23 10:05 Temperature 97.6 F Pulse Rate 86 Respiratory Rate 16 Blood Pressure 151/72 H Pulse Oximetry 95 Oxygen Delivery Method Room Air MDM - Altered Mental Status Lab Data 02/02/23 11:19 02/02/23 11:53 Labs: Lab Results 02/02/23 02/02/23 02/02/23 Range/Units 10:27 11:00 11:19 WBC 11.8 H (4.5-11.0) X10^3/uL RBC 5.09 (4.0-5.2) X10^6/uL Hgb 15.4 (12.0-16.0) g/dL Hct 45.7 (36-46) % MCV 89.9 (80-100) fL MCH 30.3 (26-34) PG MCHC 33.7 (30-36) % RDW 14.2 (11.6-14.8) % Plt Count 285 (150-400) X10^3/uL Neut % (Auto) 85.6 H (50-75) % Lymph % (Auto) 6.9 L (25-40) % [place] % (Auto) 7.1 (3-14) % Eos % (Auto) 0.0 L (2-4) % Baso % (Auto) 0.4 (0-2) % Neut # (Auto) 99290 H (6679-3606) /uL Lymph # (Auto) 800 L (3556-4633) /uL [place] # (Auto) 800 (0-900) /uL Eos # (Auto) 0 (0-450) /uL Baso # (Auto) 0 (0-100) /uL Sodium (137-145) mmol/L Potassium (3.4-5.1) mmol/L Chloride (98-107) mmol/L Carbon Dioxide (22-32) mmol/L BUN (7-17) mg/dL Creatinine (0.52-1.04) mg/dL Estimated GFR (>60) mL/min BUN/Creatinine Ratio (6-22) Glucose (80-110) mg/dL Calcium (8.4-10.2) mg/dL Total Bilirubin (0.2-1.3) mg/dL AST (14-36) IU/L ALT (<35) IU/L Alkaline Phosphatase (38-126) U/L Total Protein (6.3-8.2) g/dL Albumin (3.5-5.0) g/dL Globulin (1.7-4.1) g/dL Albumin/Globulin Ratio (1.0-2.8) Lipase (23-300) U/L Urine Color Yellow Urine Appearance Clear Urine pH 8.5 H (4.5-8.0) Ur Specific We[place]ert 1.020 (1.000-1.035) Urine Protein 3+ H (Negative) Urine Glucose (UA) Negative (Negative) g/dL Urine Ketones Trace H (NEGATIVE) Urine Occult Blood 3+ H (Negative) Urine Nitrate Positive H (Negative) Urine Bilirubin 1+ H (NEGATIVE) Ur Bilirubin Confirm Negative (Negative) Urine Urobilinogen 2.0 H (0.2) E.U./dL Ur Leukocyte Esterase 3+ H (NEGATIVE) Urine RBC 10-30/hpf H (0-5/HPF) Urine WBC >100/hpf H (0-5/HPF) Ur Squamous Epith Cells 1-5 /hpf (0-5/HPF) Urine Bacteria Many (>30) H (None) Ur Culture Indicated? Specimen cultured Chlamy pneumoniae PCR Not detected (Not Detect) Adenovirus (PCR) Not detected (Not Detect) B.parapertussis DNA PCR Not detected (Not Detecte) Coronavirus OC43 (PCR) Not detected (Not Detect) Coronavirus HKU1 (PCR) Not detected (Not Detect) Coronavirus 229E (PCR) Not detected (Not Detect) SARS-CoV-2 (PCR) Detected H (Not Detecte) Coronavirus NL63 (PCR) Not detected (Not Detect) Human Metapneumovir PCR Not detected (Not Detect) Influenza Type A (PCR) Not detected (Not Detect) Influenza Type B (PCR) Not detected (Not Detect) M. pneumoniae (PCR) Not detected (Not Detect) Parainfluenza 1 (PCR) Not detected (Not Detect) Parainfluenza 2 (PCR) Not detected (Not Detect) Parainfluenza 3 (PCR) Not detected (Not Detect) Parainfluenza 4 (PCR) Not detected (Not Detect) RSV (PCR) Not detected (Not Detect) Entero/Rhino (PCR) Not detected (Not Detect) 02/02/23 Range/Units 11:53 WBC (4.5-11.0) X10^3/uL RBC (4.0-5.2) X10^6/uL Hgb (12.0-16.0) g/dL Hct (36-46) % MCV (80-100) fL MCH (26-34) PG MCHC (30-36) % RDW (11.6-14.8) % Plt Count (150-400) X10^3/uL Neut % (Auto) (50-75) % Lymph % (Auto) (25-40) % [place] % (Auto) (3-14) % Eos % (Auto) (2-4) % Baso % (Auto) (0-2) % Neut # (Auto) (9592-0286) /uL Lymph # (Auto) (3462-3864) /uL [place] # (Auto) (0-900) /uL Eos # (Auto) (0-450) /uL Baso # (Auto) (0-100) /uL Sodium 148 H (137-145) mmol/L Potassium 3.3 L (3.4-5.1) mmol/L Chloride 112 H (98-107) mmol/L Carbon Dioxide 30 (22-32) mmol/L BUN 24 H (7-17) mg/dL Creatinine 0.66 (0.52-1.04) mg/dL Estimated GFR > 60 (>60) mL/min BUN/Creatinine Ratio 36.4 H (6-22) Glucose 137 H (80-110) mg/dL Calcium 9.3 (8.4-10.2) mg/dL Total Bilirubin 1.1 (0.2-1.3) mg/dL AST 81 H (14-36) IU/L ALT 136 H (<35) IU/L Alkaline Phosphatase 155 H (38-126) U/L Total Protein 7.1 (6.3-8.2) g/dL Albumin 3.6 (3.5-5.0) g/dL Globulin 3.5 (1.7-4.1) g/dL Albumin/Globulin Ratio 1.0 (1.0-2.8) Lipase 22 L (23-300) U/L Urine Color Urine Appearance Urine pH (4.5-8.0) Ur Specific [place] (1.000-1.035) Urine Protein (Negative) Urine Glucose (UA) (Negative) g/dL Urine Ketones (NEGATIVE) Urine Occult Blood (Negative) Urine Nitrate (Negative) Urine Bilirubin (NEGATIVE) Ur Bilirubin Confirm (Negative) Urine Urobilinogen (0.2) E.U./dL Ur Leukocyte Esterase (NEGATIVE) Urine RBC (0-5/HPF) Urine WBC (0-5/HPF) Ur Squamous Epith Cells (0-5/HPF) Urine Bacteria (None) Ur Culture Indicated? Chlamy pneumoniae PCR (Not Detect) Adenovirus (PCR) (Not Detect) B.parapertussis DNA PCR (Not Detecte) Coronavirus OC43 (PCR) (Not Detect) Coronavirus HKU1 (PCR) (Not Detect) Coronavirus 229E (PCR) (Not Detect) SARS-CoV-2 (PCR) (Not Detecte) Coronavirus NL63 (PCR) (Not Detect) Human Metapneumovir PCR (Not Detect) Influenza Type A (PCR) (Not Detect) Influenza Type B (PCR) (Not Detect) M. pneumoniae (PCR) (Not Detect) Parainfluenza 1 (PCR) (Not Detect) Parainfluenza 2 (PCR) (Not Detect) Parainfluenza 3 (PCR) (Not Detect) Parainfluenza 4 (PCR) (Not Detect) RSV (PCR) (Not Detect) Entero/Rhino (PCR) (Not Detect) Imaging Data US - abdomen: Radiologist's Impression: [address] [id number] Ultrasound Report? Signed Patient: Analilia Malone MR#: [id number] : 1945 Acct:[id number] Age/Sex: 77 / F Date of Service: 02/02/23 Loc: ED Accession Number: [id number]? ? Procedure: US abdomen complete Ordering Provider: Lucie Nowak D.O. PROCEDURE:? US ABDOMEN COMPLETE ? INDICATIONS:? ALTERED MENTAL STATUS, ABDOMINAL PAIN, URINARY RETENTION ? TECHNIQUE:?? Real-time scanning was performed of the abdominal and retroperitoneal organs, with image? documentation.?? ? COMPARISON:? [facility], US, US ABDOMEN LIMITED, 11/22/2017, 8:29. ? FINDINGS:?? ? Image quality:? Study is technically limited by body habitus and increased bowel gas.?? Patient unable to suspend respiration and cooperate with the exam. ? Liver:? Hepatic parenchyma shows diffuse increased echogenicity consistent with fatty? infiltration. ? Gallbladder:? Sonolucent without evidence cholelithiasis, gallbladder wall thickening or? pericholecystic fluid.? No sonographic Collazo sign.? Biliary ducts:? Intrahepatic bile ducts are non-dilated.? Extrahepatic bile duct caliber? measures 6.3 mm.? Normal is 6-7 mm or less in diameter, or 10 mm or less? post-cholecystectomy.?? ? Pancreas:? Visualized portions of the pancreas are sonographically normal.?? ? Spleen:? Not well visualized ? Kidneys:? Right renal length 11.5 cm.? There is cortical thinning and mild right-sided? hydronephrosis present.? Left kidney measures 10.4 cm in length, there is mild left? caliectasis.? Urinary bladder not well visualized ? Aorta:? Not well visualized ? Iliacs:? Not well visualized ? IVC:? Intrahepatic inferior vena cava is patent.?? ? Miscellaneous:? No free abdominal fluid.? IMPRESSION:?? ? Mild bilateral hydronephrosis, right greater than left.? Urinary bladder not well? visualized.? Consider follow-up CT evaluation. ? Approved by: Abhishek Marcelino M.D. on 02/02/2023 at 10:56?? MDM Narrative Medical decision making narrative: 77-year-old female sent for altered mental status, report per home health care nurse who saw her on Wednesday she was normal at that time. is not present so unclear if she is had other changes she was on hospice which she has graduated from but is still comfort measures. Was reported to have a clogged catheter which was in place to prevent skin breakdown. That was removed this morning. They were concerned about UTI patient was sent for evaluation. Suspect patient has significant urinary retention I can palpate her bladder on examination. Catheter was placed patient had 450 mL out immediately did have some blood and clot that was flushed and then had improvement drainage again. UA was sent and shows nitrite positive urine, positive leuks, positive RBCs greater than 100 WBCs, many bacteria. Patient does appear to feel somewhat more comfortable. Patient is to continue her antibiotic has been states she is been taking her meds orally even today he can crush them give them that way. Discussed with about goals of care if he would like blood work or further workup. Patient states he would like some additional blood work, he is open to ultrasound imaging. He does not wish to prolong life but does want to make sure his is comfortable. MAKEUP EDITOR met with patient's family they will put in order to restart hops space which I think is very appropriate. Patient has white count of 11 sodium is 148 potassium 3 3 creatinine is appropriate BUN is elevated at 24 LFTs are slightly elevated lipase is negative but negative bilirubin. Abdominal ultrasound does show mild bilateral hydro right greater than left. This was performed after Kemp catheter was placed. Discharge Plan Departure Patient Disposition: Home Clinical Impression: Acute UTI, Malfunction of Kemp catheter, COVID-19 virus infection Activity Restrictions/Additional Instructions: Please follow up with hospice. I do think you would benefit. Your workup today did show positive for COVID infection. You do have some mild changes to your liver enzymes and your potassium is slightly low. You do appear to have an infection in your urine, you do need a Kemp catheter to keep you from retaining urine. This can be helpful for comfort well preventing skin breakdown. You may take the antibiotic prescribed by your medical team until completed. Please return for discomfort or other new or concerning changes or if you are catheter becomes blocked. Prescriptions: No Action memantine 10 mg tablet 10 mg PO BID hydrochlorothiazide 25 mg tablet See Rx Instructions .ROUTE .COMPLEX Qty: 30 0RF Dose Instruction: Take 1 tablet (25 mg) by mouth daily Rx Instructions: Take 1 tablet (25 mg) by mouth daily (DME) semi electric bariatric bed See Rx Instructions .Route .MEDSUPPLY Qty: 1 0RF Rx Instructions: As directed lorazepam 0.5 mg tablet 0.5 mg PO TID PRN (Reason: agitation) Qty: 90 0RF nitrofurantoin monohyd/m-cryst [Macrobid] 100 mg capsule 100 mg PO BID 7 Days Qty: 14 0RF Rx Instructions: must administer with a meal/food oxybutynin chloride 5 mg tablet 5 mg PO DAILY Qty: 90 0RF (DME) Parking Permit... See Rx Instructions .ROUTE .MEDSUPPLY Qty: 1 0RF Rx Instructions: As directed cholecalciferol (vitamin D3) 25 mcg (1,000 unit) Tablet 25 mcg PO DAILY rivastigmine 4.6 mg/24 hour patch 24 hour 1 patch topical DAILY (DME) Lightweight Lrg Wheelchair large See Rx Instructions Rx Instructions: As directed Referrals: Karolina Montague MD [Primary Care Provider] - Stand Alone Forms: Patient Portal/API
--- NOTE | 2023-02-02 10:45 | DI.US.S_ITS ---
PROCEDURE: US ABDOMEN COMPLETE INDICATIONS: ALTERED MENTAL STATUS, ABDOMINAL PAIN, URINARY RETENTION TECHNIQUE: Real-time scanning was performed of the abdominal and retroperitoneal organs, with image documentation. COMPARISON: [facility], , US ABDOMEN LIMITED, 11/22/2017, 8:29. FINDINGS: Image quality: Study is technically limited by body habitus and increased bowel gas. Patient unable to suspend respiration and cooperate with the exam. Liver: Hepatic parenchyma shows diffuse increased echogenicity consistent with fatty infiltration. Gallbladder: Sonolucent without evidence cholelithiasis, gallbladder wall thickening or pericholecystic fluid. No sonographic Collazo sign. Biliary ducts: Intrahepatic bile ducts are non-dilated. Extrahepatic bile duct caliber measures 6.3 mm. Normal is 6-7 mm or less in diameter, or 10 mm or less post-cholecystectomy. Pancreas: Visualized portions of the pancreas are sonographically normal. Spleen: Not well visualized Kidneys: Right renal length 11.5 cm. There is cortical thinning and mild right-sided hydronephrosis present. Left kidney measures 10.4 cm in length, there is mild left caliectasis. Urinary bladder not well visualized Aorta: Not well visualized Iliacs: Not well visualized IVC: Intrahepatic inferior vena cava is patent. Miscellaneous: No free abdominal fluid. IMPRESSION: Mild bilateral hydronephrosis, right greater than left. Urinary bladder not well visualized. Consider follow-up CT evaluation. Approved by: Abhishek Marcelino M.D. on 02/02/2023 at 10:56
[2023-02-02 10:48] LABS: Appearance Urine UA CLEAR; Bilirubin Urine UA 1+ (NEGATIVE); Color Urine UA YELLOW; Glucose Urine UA NEGATIVE (Negative); Ketones Urine UA TRACE (NEGATIVE); Leukocyte Esterase Urine UA 3+ (NEGATIVE); Nitrite Urine UA POSITIVE (Negative); Occult Blood Urine UA 3+ (Negative); Protein Urine UA 3+ (Negative)
[2023-02-02 10:59] LABS: pH Urine UA 8.5 (4.5-8.0)
[2023-02-02] MEDS: cefTRIAXone 1,000 MG in SODIUM CHLORIDE 0.9% 100 ML 200 MG IV (11:02)
[2023-02-02 11:12] LABS: Culture Indicated Urine Specimen Cultured
[2023-02-02 11:13] LABS: Bacteria Urine Many (>30); Ictotest Urine Negative (Negative); RBC Urine 10-30/HPF (0-5/HPF); Squamous Epithelial Cell Urine 1-5 /HPF (0-5/HPF); WBC Urine >100/HPF (0-5/HPF)
[2023-02-02 11:28] LABS: Add Manual Diff / Slide Review NO; Basophils Absolute Auto 0 /uL (0-100); Basophils Percent Auto 0.4 % (0-2); Eosinophils Absolute Auto 0 /uL (0-450); Hematocrit 45.7 % (36-46); Hemoglobin 15.4 g/dL (12.0-16.0); Lymphocytes Absolute Auto 800 /uL (1100-4500); Lymphocytes Percent Auto 6.9 % (25-40); Mean Corpuscular HGB Conc 33.7 % (30-36); Mean Corpuscular Hemoglobin 30.3 PG (26-34); Mean Corpuscular Volume 89.9 fL (80-100); Monocytes Absolute Auto 800 /uL (0-900); Monocytes Percent Auto 7.1 % (3-14); Neutrophils Absolute Auto 10100 /uL (1500-7000); Neutrophils Percent Auto 85.6 % (50-75); Platelet Count 285 X10^3/uL (150-400); Red Blood Cell Count 5.09 X10^6/uL (4.0-5.2); Red Cell Distribution Width 14.2 % (11.6-14.8); White Blood Cell Count 11.8 X10^3/uL (4.5-11.0)
[2023-02-02 12:03] LABS: Adenovirus Not Detected (Not Detect); B. parapertussis Not Detected (Not Detecte); Bordetella pertussis Not Detected (Not Detect); Chlamydophila pneumoniae Not Detected (Not Detect); Coronavirus 229E Not Detected (Not Detect); Coronavirus HKU1 Not Detected (Not Detect); Coronavirus NL 63 Not Detected (Not Detect); Coronavirus OC43 Not Detected (Not Detect); Human Metapneumovirus Not Detected (Not Detect); Human Rhinovirus/Enterovirus Not Detected (Not Detect); Influenza A Not Detected (Not Detect); Influenza B Not Detected (Not Detect); Mycoplasma pneumoniae Not Detected (Not Detect); Parainfluenza Virus 1 Not Detected (Not Detect); Parainfluenza Virus 2 Not Detected (Not Detect); Parainfluenza Virus 3 Not Detected (Not Detect); Parainfluenza Virus 4 Not Detected (Not Detect); Respiratory Syncytial Virus Not Detected (Not Detect)
[2023-02-02 12:06] LABS: SARS- CoV-2 Detected (Not Detecte)
[2023-02-02 12:41] LABS: Alanine Aminotransferase 136 IU/L (<35); Albumin 3.6 g/dL (3.5-5.0); Alkaline Phosphatase 155 U/L (38-126); Aspartate Aminotransferase 81 IU/L (14-36); BUN Creatinine Ratio 36.4 (6-22); Bilirubin Total 1.1 mg/dL (0.2-1.3); Blood Urea Nitrogen 24 mg/dL (7-17); Calcium 9.3 mg/dL (8.4-10.2); Carbon Dioxide 30 mmol/L (22-32); Chloride 112 mmol/L (98-107); Estimated Glomerular Filt Rate > 60 mL/min (>60); Globulin 3.5 g/dL (1.7-4.1); Glucose 137 mg/dL (80-110); HEMOLYSIS < 15 (0-50); Lipase 22 U/L (23-300); Potassium 3.3 mmol/L (3.4-5.1); Sodium 148 mmol/L (137-145); Total Protein 7.1 g/dL (6.3-8.2)
--- NOTE | 2023-02-02 13:41 | CM.SWNOTE ---
ED BLANKET WINDER OPERATOR Note Patient is 77 y/o male who presents to ED via EMS due to concern for AMS. It is reported that [facility] RN was concerned about patient's AMS and word salad speech. Patient presents with clogged catheter and concern for UTI as well. Patient's PCP is Dr. Montague, patient has [facility] insurance. ED provider has discussion with spouse about comfort care and patient's spouse wishes to pursue hospice for patient. Patient was previous [facility] patient from October 2022-November 2022 and current has RN services with [facility] . Patient is not A/O, present in room is patient's spouse. Patient presents in room with mouth open and unable to verbally communicate at house. Patient resides with spouse in [place] Patient's spouse endorses that patient has four caregivers that ensure patient has a caregiver 7 days a week. Caregiver is there Wednesday- from 8am-8pm and Wednesday-Wednesday from 8am-6pm. It is reported that patient relies on caregivers for all ADLs and patient is bed bound, patient has kelsey cath. At ED visit today patient was diagnosed with Covid-19. Patient's spouse endorses preference for [facility], BLANKET WINDER OPERATOR endorses BLANKET WINDER OPERATOR will call to set up referral and ensure smooth transition from [facility] to [facility] services. BLANKET WINDER OPERATOR calls [facility] regarding new referral, it is reported that cannot see new patients until next week. BLANKET WINDER OPERATOR states that patient has current RN with [facility] and BLANKET WINDER OPERATOR will relay this information to them. BLANKET WINDER OPERATOR calls [facility] and leaves regarding patient's new referral and transition to [facility] but delay in start of care until next week. BLANKET WINDER OPERATOR later [facility] and relays this information and she states that she will continue to see patient until [facility] starts services. BLANKET WINDER OPERATOR calls patient's PCP officer regarding patient's hospice referral. BLANKET WINDER OPERATOR faxes referral and hospice order to [facility] and faxes ED summary to [facility] . Patient will need BLS upon d/c. Plan: patient to d/c to home via BLS with new [facility] referral and [facility] services until [facility]osp[facility] transition. FORESTRY SUPERVISOR to set up BLS transport. JASON Regalado
== END 2023-02-02 15:04 | disposition home or self-care (01) ==
PROVIDERS: Emergency Provider Emergency Medicine; PCP Family Medicine; Referring Provider Emergency Medicine
DX: N39.0 Urinary tract infection, site not specified (principal); T83.011A Breakdown (mechanical) of indwelling urethral catheter, initial encounter; U07.1 COVID-19; B96.4 Proteus (mirabilis) (morganii) as the cause of diseases classified elsewhere
CPT/HCPCS: 36415; 76700; 80053; 81001; 83690; 85025; 87077; 87086; 87186; 87633; 96365; 99284; J0696